=== PATIENT | female | born 1985 | race Caucasian/White ===

== ENCOUNTER 2017-12-20 13:47 | Inpatient (IN) | payer OTHER ==
[~2017-12-20] VITALS: Ht 157.5 cm; Wt 64.1 kg
[2017-12-20] MEDS ORDERED: LACTATED RINGER'S 1000ML 1,000 ML IV SCH (16:45)
[2017-12-20 16:56] VITALS: Ht 157.5 cm; Wt 64.1 kg
[2017-12-20] MEDS ORDERED: FERR1TAB23 (16:56)
[2017-12-20] MEDS ORDERED: PRENTAB26 PO (16:56)
[2017-12-20 17:11] LABS: HEMATOCRIT 32.7 % (37-47); HEMOGLOBIN 11.3 g/dL (12.0-16.0); MEAN CELL VOLUME 91.1 fL (80-100); MEAN CORPUSCULAR HEMOGLOBIN 31.5 pg (25-34); MEAN CORPUSCULAR HGB CONC 34.6 g/dl (32-36); MEAN PLATELET VOLUME 8.9 fL (7.4-10.4); PLATELET COUNT 383 K/uL (130-400); RED CELL DISTRIBUTION WIDTH SD 43.1 fL (36.4-46.3); WHITE BLOOD COUNT 12.03 K/uL (4.8-10.8)
[2017-12-20] MEDS ORDERED: OXYTOCIN INJ 10 UNITS/ML VIAL ONE (17:21)
[2017-12-20] MEDS ORDERED: OXYTOCIN 30 UNITS/500ML NSS IV ONE (18:18)
[2017-12-20] MEDS ORDERED: HYDROCORTISONE ACETATE 25 MG SUPP PR PRN (19:15)
[2017-12-20] MEDS ORDERED: ACETAMINOPHEN 325 MG TAB PO PRN (19:15)
[2017-12-20] MEDS ORDERED: BENZOCAINE 20% AER SPR 82.5 GM CAN EXT PRN (19:15)
[2017-12-20] MEDS ORDERED: SUPERCREAM 0.870 % 15GM JAR EXT PRN (19:15)
[2017-12-20] MEDS ORDERED: OXYTOCIN 30 UNITS/500ML NSS IV PRN (19:15)
[2017-12-20] MEDS ORDERED: OXYCODONE/ACETAMINOPHEN 5-325 TAB PO PRN (19:15)
[2017-12-20] MEDS ORDERED: ACETAMINOPHEN/CODEINE 300/30MG TAB PO PRN ×2 (19:15)
[2017-12-20] MEDS ORDERED: LANOLIN OINT EXT PRN (19:15)
--- NOTE | 2017-12-20 20:01 | HISTORY & PHYSICAL EXAMINATION ---
DATE OF ADMISSION: 12/20/2017 HISTORY OF PRESENT ILLNESS: The patient is a 32-year-old G4, P2, due date 12/27/2017, making her 39 weeks, presented to labor and delivery in labor. Upon arrival, the patient was about 3 cm dilated. She ambulated for an hour and her cervical exam changed to 7 cm. She was then admitted. She was having irregular contractions. heart rate was category 1. COURSE: Has been unremarkable. PAST MEDICAL HISTORY: Asthma. PAST SURGICAL HISTORY: Dental surgery. ALLERGIES: No known drug allergies. SOCIAL HISTORY: Nonsmoker, nonalcohol user, nondrug user. OBSTETRIC/GYNECOLOGIC HISTORY: The patient has had 2 vaginal deliveries in 2011 and 2013. PHYSICAL EXAMINATION: GENERAL: Well-developed, well-nourished white female in no acute distress. HEART: S1, S2, regular rhythm and rate. LUNGS: Clear to auscultation bilaterally. ABDOMEN: heart rate category 1. Gravid. EXTREMITIES: No cyanosis, clubbing, edema. PELVIC: Exam on admission, is 7 cm dilated with bulging membranes. ASSESSMENT AND PLAN: A 32-year-old G4, P2, at 39 weeks, in labor. Plan is to admit, anticipate vaginal delivery. The patient on admission had declined IV. We discussed with patient the risk of hemorrhage, the risks of deceleration or any other situation that might require emergent , and the fact that the absence of an IV access may cause a delay. The patient and spouse still did not want an IV. We, therefore, will admit the patient and hope for the best.
--- NOTE | 2017-12-20 20:41 | DELIVERY SUMMARY ---
DATE OF OPERATION: 12/20/2017 The patient delivered a live infant in left hand compound presentation. There was no nuchal cord. was delivered. Cord was clamped after 1 minute. Cord blood was obtained. Placenta spontaneously delivered after 30 minutes. Estimated blood loss was 500 mL. There was a second-degree midline laceration which was repaired in layers. There was good sphincter tone after repair. All instruments were removed from the vagina and accounted for x2. The patient and mother are doing well in recovery. I attest to the content of the Intraoperative Record and any orders documented therein. Any exception s are noted below.
[2017-12-20] MEDS ORDERED: COUGH DROP (SUGAR FREE) LOZ 24 LOZ/1 BOX LOZ ONE (22:24)
[2017-12-20] MEDS: IBUPROFEN 600 MG TAB PO PRN (22:30)
[2017-12-20] MEDS: DOCUSATE SODIUM 100 MG CAP PO SCH (22:31)
[2017-12-20 23:10] VITALS: BP 96/61; PULSE 88; TEMP 36.5; O2SAT 96
[2017-12-21 04:10] VITALS: BP 99/64; PULSE 83; TEMP 36.7; O2SAT 96
[2017-12-21 07:45] VITALS: BP 99/60; PULSE 81; TEMP 36.3; O2SAT 97
[2017-12-21] MEDS: IBUPROFEN 600 MG TAB PO PRN ×2 (07:48→21:25)
[2017-12-21] MEDS: PRENATAL VITAMIN TAB PO SCH (07:48)
--- NOTE | 2017-12-21 10:14 | OB/GYN Progress Note ---
[employer] Progress Note Date of Service Dec 21, 2017. Subjective conversation w/ patient, physical exam Ambulation: ambulating normally Voiding: no voiding problems Passing Gas: Yes Diet Tolerance: Regular Diet Lochia: Moderate Feeding Type: Breast Feeding Review of Systems Constitutional: No fever, No chills, No sweats, No weight loss, No weakness, No fatigue, No problem reported Respiratory: No cough, No sputum, No wheezing, No shortness of breath, No dyspnea on exertion, No dyspnea at rest, No hemoptysis, No problem reported Cardiac: No chest pain, No orthopnea, No PND, No edema, No claudication, No palpitations, No problem reported Breast: No see HPI, No breast lump, No change in shape, No nipple discharge, No breast pain, No problem reported Abdomen: No pain, No nausea, No vomiting, No diarrhea, No constipation, No GI bleeding, No problem reported Female : No see HPI, No dysuria, No urinary frequency, No hematuria, No incontinence, No abnormal vaginal bleeding, No vaginal discharge, No problem reported Objective Vital Signs Date Time Temp Pulse Resp B/P (MAP) Pulse Ox O2 Delivery O2 Flow Rate FiO2 12/21/17 07:45 36.3 81 18 99/60 (73) 97 Room Air 12/21/17 07:45 97 Room Air 12/21/17 04:10 36.7 83 16 99/64 (76) 96 Room Air 12/20/17 23:10 Room Air 12/20/17 23:10 36.5 88 16 96/61 (73) 96 Room Air Physical Exam General Appearance: WELL-APPEARING, WD/WN, NO APPARENT DISTRESS Respiratory/Chest: chest non-tender, lungs clear, normal breath sounds Cardiovascular: regular rate, rhythm, no edema, no gallop Abdomen: normal bowel sounds, non tender, soft Fundus: Firm Extremities: normal range of motion, non-tender, normal inspection Laboratory Results Last 24 Hours Test 12/20/17 16:59 White Blood Count 12.03 K/uL Red Blood Count 3.59 M/uL Hemoglobin 11.3 g/dL Hematocrit 32.7 % Mean Corpuscular Volume 91.1 fL Mean Corpuscular Hemoglobin 31.5 pg Mean Corpuscular Hemoglobin Concent 34.6 g/dl RDW Standard Deviation 43.1 fL RDW Coefficient of Variation 13.0 % Platelet Count 383 K/uL Mean Platelet Volume 8.9 fL Assessment and Plan Day Number: 1 Continue Routine Care: PPD #1 pt doing well d/c home tomorrow
[2017-12-21 12:30] VITALS: BP 99/62; PULSE 77; TEMP 36.9
[2017-12-21 15:45] VITALS: BP 87/49; PULSE 80; TEMP 36.4
[2017-12-21] MEDS: DOCUSATE SODIUM 100 MG CAP PO SCH ×3 (19:30→20:00)
[2017-12-21] MEDS ORDERED: BISACODYL 5 MG TABEC PO SCH (20:00)
[2017-12-22] VITALS: BP 96/60; PULSE 80; TEMP 36.6; O2SAT 98
[2017-12-22 06:29] LABS: HEMATOCRIT 30.1 % (37-47); HEMOGLOBIN 10.1 g/dL (12.0-16.0); MEAN CELL VOLUME 92.9 fL (80-100); MEAN CORPUSCULAR HEMOGLOBIN 31.2 pg (25-34); MEAN CORPUSCULAR HGB CONC 33.6 g/dl (32-36); MEAN PLATELET VOLUME 8.8 fL (7.4-10.4); PLATELET COUNT 368 K/uL (130-400); RED CELL DISTRIBUTION WIDTH CV 13.4 % (11.5-14.5); RED CELL DISTRIBUTION WIDTH SD 45.2 fL (36.4-46.3); WHITE BLOOD COUNT 11.73 K/uL (4.8-10.8)
[2017-12-22] MEDS ORDERED: BISACODYL 10 MG SUPP PR PRN (07:00)
[2017-12-22] MEDS: IBUPROFEN 600 MG TAB PO PRN (08:13)
[2017-12-22] MEDS: FERROUS SULFATE 325 MG TAB PO SCH ×2 (08:14→08:17)
[2017-12-22] MEDS: PRENATAL VITAMIN TAB PO SCH (08:14)
[2017-12-22] MEDS: DOCUSATE SODIUM 100 MG CAP PO SCH (08:14)
[2017-12-22 08:50] VITALS: PULSE 80; TEMP 36.8
[2017-12-22] MEDS ORDERED: MTR600X PO (12:01)
--- NOTE | 2017-12-22 12:03 | Discharge Instructions ---
Discharge Instructions Date of Service Dec 22, 2017. Admission Reason for Admission: Check Labor Discharge Discharge Diagnosis / Problem: term delivered Discharge Goals Goal(s): Routine recovery after delivery Activity Recommendations Activity Limitations: as noted below Lifting Limitations: no more than 10 pounds, gradually increase as tolerated Exercise/Sports Limitations: gradually increase as tolerated May Resume Sexual Activity: after follow-up appointment Shower/Bathe: no limitations Driving or Machine Use: resume 3 days after discharge . Current Hospital Diet Patient's current hospital diet: Regular OB Diet Discharge Diet Recommended Diet: Regular OB Diet Fluid Restriction: None Pending Studies Studies pending at discharge: no Medical Emergencies . Who to Call and When: Medical Emergencies: If at any time you feel your situation is an emergency, please call 911 immediately. . Non-Emergent Contact Non-Emergency issues call your: Primary Care Provider . . "Provider Documentation" section prepared by Luther Redding. .
--- NOTE | 2017-12-22 12:04 | OB/GYN Progress Note ---
[employer] Progress Note Date of Service Dec 22, 2017. Subjective conversation w/ patient, physical exam Ambulation: ambulating normally Voiding: no voiding problems Passing Gas: Yes Diet Tolerance: Regular Diet Lochia: Small Objective Vital Signs Date Time Temp Pulse Resp B/P (MAP) Pulse Ox O2 Delivery O2 Flow Rate FiO2 12/22/17 08:50 Room Air 12/22/17 08:50 36.8 80 18 Room Air 12/22/17 00:00 98 Room Air 12/22/17 00:00 36.6 80 16 96/60 (72) 98 Room Air 12/21/17 15:45 36.4 80 18 87/49 (62) Room Air 12/21/17 15:45 Room Air 12/21/17 12:30 36.9 77 18 99/62 (74) Room Air Physical Exam General Appearance: NO APPARENT DISTRESS Abdomen: non tender Fundus: Firm Extremities: normal inspection, no pedal edema, no calf tenderness Laboratory Results Last 24 Hours Test 12/22/17 06:00 White Blood Count 11.73 K/uL Red Blood Count 3.24 M/uL Hemoglobin 10.1 g/dL Hematocrit 30.1 % Mean Corpuscular Volume 92.9 fL Mean Corpuscular Hemoglobin 31.2 pg Mean Corpuscular Hemoglobin Concent 33.6 g/dl RDW Standard Deviation 45.2 fL RDW Coefficient of Variation 13.4 % Platelet Count 368 K/uL Mean Platelet Volume 8.8 fL Assessment and Plan Day Number: 2 Continue Routine Care: discharged
[2017-12-22 14:25] VITALS: BP_DIAS 60; PULSE 80; TEMP 36.8
== END 2017-12-22 14:25 | disposition home or self-care (01) | DRG 775 ==
LOC: C.OPB 13:47 → C.LD 13:47 → C.OPB 16:42 → C.LD 16:42 → C.OBG 21:48
PROVIDERS: ADMIT Obstetrics & Gynecology; ATTEND Obstetrics & Gynecology
PROC: 0KQM0ZZ Repair Perineum Muscle, Open Approach (ICD-10-PCS; principal; 2017-12-20)
PROC: 10E0XZZ Delivery of Products of Conception, External Approach (ICD-10-PCS; principal; 2017-12-20)
DX: O70.1 Second degree perineal laceration during delivery (principal); Z3A.39 39 weeks gestation of pregnancy; Z37.0 Single live birth

== ENCOUNTER 2019-10-12 09:19 | Inpatient (IN) ==
[2019-10-12] MEDS ORDERED: SODIUM CHLORIDE 0.9% 500 ML IV ONE (09:42)
[2019-10-12] MEDS ORDERED: SODIUM CHLORIDE 0.9% 1000ML 1,000 ML IV ONE ×2 (09:42→17:58)
[2019-10-12] MEDS ORDERED: ACETAMINOPHEN 500 MG TAB PO STA (09:43)
[2019-10-12 10:00] LABS: Basophils # (auto) 0.01 K/uL (0-0.2); Basophils % (auto) 0.2 %; Eosinophils # (auto) 0.01 K/uL (0-0.5); Eosinophils % (auto) 0.2 %; Hemoglobin 11.9 g/dL (12.0-16.0); Immature Granulocytes # (auto) 0.01 K/uL (0.00-0.02); Immature Granulocytes % (auto) 0.2 %; Lymphocytes # (auto) 0.69 K/uL (1.2-3.4); Mean Corpuscular Hemoglobin 30.5 pg (25-34); Mean Corpuscular Hgb Conc 33.1 g/dL (32-36); Mean Corpuscular Volume 92.3 fL (80-100); Mean Platelet Volume 9.2 fL (7.4-10.4); Monocytes # (auto) 0.07 K/uL (0.11-0.59); Monocytes % (auto) 1.7 %; Neutrophils # (auto) 3.26 K/uL (1.4-6.5); Neutrophils % (auto) 80.7 %; Platelet Count 295 K/uL (130-400); RDW Coefficient of Variation 12.9 % (11.5-14.5); RDW Standard Deviation 43.2 fL (36.4-46.3); White Blood Count 4.05 K/uL (4.8-10.8)
--- NOTE | 2019-10-12 10:15 | XRay Report ---
XR chest 1V portable HISTORY: 34 years-old Female SEPSIS acute sepsis COMPARISON: None available TECHNIQUE: Portable AP view of the chest FINDINGS: Nipple shadow projects of the left lung base. Cardiomediastinal and hilar silhouettes are within norm al limits. There is no pneumothorax, pleural effusion, focal airspace consolidation or overt pulmonar y edema. Bones of the chest appear grossly intact. There is no opaque foreign body. IMPRESSION: No acute process. ACT 112: Negative or not required by law. The above report was generated using voice recognition software. It may contain grammatical, syntax o r spelling errors. Electronically signed by: Jim Deleon M.D. 10/12/2019 10:13 AM
[2019-10-12 10:16] LABS: Appearance Urine Clear (Clear); Bacteria Urine Automated Negative (Negative); Bilirubin Urine Negative (Negative); Blood Urine 1+ (Negative); Cast Urine Automated 0 /lpf (0-5); Color Urine Yellow; Epithelial Cell Urine Auto >30 /lpf (0-5); Glucose Urine UA Negative (Negative); Ketones Urine Negative (Negative); Leukocyte Esterase Urine Negative (Negative); Nitrite Urine Negative (Negative); Protein Urine Negative (Negative); Specific Gravity Urine 1.014 (1.000-1.030); Urobilinogen Urine Negative (Negative)
[2019-10-12 10:16] LABS: Partial Thromboplastin Ratio 0.8; Prothrombin Time 10.7 Seconds (9.0-12.0)
[2019-10-12 10:17] LABS: Albumin Level 4.1 gm/dl (3.4-5.0); BUN Creatinine Ratio 13.3 (10-20); Calcium 8.5 mg/dl (8.5-10.1); Creatinine Clr Calc Pharmacy 85.2 ml/min; Est GFR (African American) 122.2; Est GFR (Non-African American) 105.5; Magnesium 1.6 mg/dl (1.8-2.4); Potassium 3.3 mmol/L (3.5-5.1)
[2019-10-12 10:20] LABS: Albumin Globulin Ratio 1.3 (0.9-2); Bilirubin,Total 0.6 mg/dl (0.2-1); Globulin 3.1 gm/dl (2.5-4.0); Total Protein 7.2 gm/dl (6.4-8.2)
[2019-10-12 10:44] LABS: Influenza A virus by PCR Neg for Influ A (Neg); Influenza B virus by PCR Neg for Influ B (Neg)
[2019-10-12] MEDS ORDERED: cefTRIAXone SODIUM 1,000 MG/50 ML BAG IV STA (11:32)
[2019-10-12] MEDS ORDERED: POTASSIUM CHLORIDE 20 MEQ TABCR PO STA (12:08)
--- NOTE | 2019-10-12 12:18 | History & Physical Report ---
Date of Service October 12, 2019 Assessment & Plan (1) Fever: -Admit to [facility] with telemetry -Patient presenting from home with reports of low back pain, right hip pain, fever and rigors -Work-up in the ED unrevealing for an obvious infectious source; children were recently sick with GI illness, suspect patient has underlying viral illness -Influenza negative, CXR clear, UA does not suggest infection -No signs of infection involving right hip and lumbar spine on CT scan -Initial lactate mildly elevated 2.1, normalized after IVF to 1.4 -Febrile on presentation at 39.4, improved after Tylenol -Continue supportive care with IVF, PRN Tylenol -Follow blood cultures (2) Thickened endometrium: (3) Dermoid cyst of right ovary: -CT ABD/pelvis showing a 6.6 x 6.1 cm mass within the right ovary demonstrating fat, calcification, and fluid consistent with an ovarian dermoid and heterogeneous and thickened appearance to the endometrium which extends into the wall of the uterine fundus which could represent an endometrial mass or focal adenomyoma. -Likely incidental finding and unrelated to above issues -Pelvic ultrasound ordered -PHLEBOTOMY SUPERVISOR consult (4) DVT prophylaxis: -SCDs, ambulate History of Present Illness Chief Complaint: Fever, Rigors Primary Care Provider: Dr. Caro 34 year old female who presents to the ED for evaluation of fever and rigors. Patient reports that over the past year she has been having intermittent right hip pain. Recently, pain has become more consistent. Patient has been trying stretches and taking ibuprofen twice daily at home. Yesterday, patient reports she developed low back pain which was new for her. Pain did not resolve with the ibuprofen. This morning patient reports she woke up with "a weird feeling" in her legs. She then some how ended up on he floor and said she was shaking, felt nauseous, and had a fever. EMS was called and patient was brought to the ED for further evaluation. Patient reports her children were sick with a GI illness recently. She had some nausea but denies any vomiting or diarrhea. No abdominal pain. She denies chest pain, shortness of breath. No lightheadedness, dizziness, diaphoresis, and syncopal events. She denies urinary symptoms. In the ED, patient was febrile at 39.4, tachycardic HR 130s. Mild leukopenia WBC 4.05K. K+ 3.3, Mg+ 1.6. Flu negative, CXR clear, U/A does not suggest infection. Patient was given Tylenol, IV Rocephin, IV Mg+, IVF. 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 Beard's addendum for physical exam Results & Data Vital Signs (Past 12 Hours) Vital Signs Temp Pulse Pulse Resp BP BP Pulse Ox 10/12/19 10:28 39.4 C H 132 H 18 104/56 L 98 10/12/19 09:31 38.4 C H 132 H 18 105/58 L 98 Laboratory Results Short CBC 10/12/19 Range/Units 08:54 WBC 4.05 L (4.8-10.8) K/uL Hgb 11.9 L (12.0-16.0) g/dL Hct 36.0 L (37-47) % Plt Count 295 (130-400) K/uL BMP 10/12/19 08:54 Sodium 139 Potassium 3.3 L Chloride 108 H Carbon Dioxide 22 BUN 10 Creatinine 0.75 Glucose 94 Calcium 8.5 Liver Function 10/12/19 Range/Units 08:54 Total Bilirubin 0.6 (0.2-1) mg/dl AST 9 L (15-37) U/L ALT 16 (12-78) U/L Alkaline Phosphatase 55 (45-117) U/L Albumin 4.1 (3.4-5.0) gm/dl Urine 10/12/19 Range/Units 09:55 Urine Color Yellow Urine Appearance Clear (Clear) Urine pH 6.0 (4.5-7.5) Ur Specific Outlook 1.014 (1.000-1.030) Urine Protein Negative (Negative) Urine Glucose (UA) Negative (Negative) Diagnostic Findings CXR IMPRESSION: No acute process. CT ABD/PELVIS IMPRESSION: 1. There is a 6.6 x 6.1 cm mass within the right ovary demonstrating fat, calcification, and fluid. This is consistent with an ovarian dermoid. 2. Heterogeneous and thickened appearance to the endometrium which extends into the wall of the uterine fundus. This could represent an endometrial mass or focal adenomyoma. Follow-up pelvic ultrasound is recommended as well as gynecologic consultation. 3. No bowel wall thickening or obstruction. 4. Normal appendix. 5. Mild interstitial thickening at the lung bases. This is nonspecific and could represent mild congestive change given the periportal edema. 6. There are 2 subpleural 4 mm nodules within the lung bases. These are considered low suspicion given the patient's age. RIGHT HIP CT IMPRESSION: 1. Unremarkable CT of the right hip. 2. Right ovarian dermoid, depicted on the CT of the abdomen and pelvis. Please see that report for further description. LUMBAR SPINE CT IMPRESSION: No fractures within the lumbar spine. Code Status & VTE Plan VTE Prophylaxis Plan VTE Prophylaxis will be ordered: Yes Supervising Physician Co-Signing Physician Notes 34 year old female who presents to the ED for evaluation of fever, rigors this morning and worsening right-sided hip pain. History and physical exam performed by me. Detailed history as documented by Berna LANGLEY. History notable for intermittent right hip pain for the past year, low back pain since yesterday that did not improve with ibuprofen, nausea, fevers and rigors. Positive sick contacts with kids with GI illness recently. No recent travels On physical exam, General: Well nourished, well hydrated, average body habitus, no acute distress and not ill appearing Eyes: PERRL, conjunctivae normal, not pale, anicteric sclerae, EOM intact bilaterally ENMT: External ear and nose normal, oropharynx normal Neck: Normal visual inspection, no tracheal deviation, no swelling noted Respiratory: Normal respiratory effort, no respiratory distress, lungs clear to auscultation, no crackles and no wheezes Cardiovascular: Pulse is RRR. S1 S2; no murmurs. Vessels: normal peripheral pulses Extremities: no pedal edema Chest (Breasts): Chest: normal inspection of chest Gastrointestinal (Abdomen): Abdomen is not distended, soft, non-tender to palpation, no guarding, no palpable hepatosplenomegaly, normal bowel sounds Musculoskeletal: No cyanosis or clubbing, No back tenderness, all extremities motor strength 5/5 Genitourinary: No CVA tenderness Skin: No rash noted on gross inspection, No ulcers noted Neurologic: Alert and oriented x 3, No focal weakness, sensation grossly intact Psychiatric: Euthymic affect, normal judgement Lymphatic: No cervical and inguinal lymphadenopathy CT ABD/pelvis showing a 6.6 x 6.1 cm mass within the right ovary demonstrating fat, calcification, and fluid consistent with an ovarian dermoid and heterogeneous and thickened appearance to the endometrium which extends into the wall of the uterine fundus which could represent an endometrial mass or focal adenomyoma CT Hip and lumbar unremarkable WBC 4.05 K 3.3 Mag 1.6 Neg flu A/B UA is negative for WBC, esterase, nitrite Procal 0.06 Tachycardia, Fevers Sepsis, unclear source Got vancomycin and ceftriaxone in ER Got potassium and mag repletion. Patient was admitted to [facility]. At about 6:10pm, RN called that patient was getting hypotensive On reevaluation patient is complaining of headache now that started today Physical exam repeated was negative for any nuchal rigidity, tenderness or any meningeal signs. Will get CT head stat Discussed with Radiologist coater carbon paper who will get lumbar puncture after CT head. Has already got 1.5L IVF since admission. Will give another bolus of IVF Transfer to PCU for closer monitoring Has already got vancomycin, will give meningitic dose of rocephine, acyclovir and steroid Monitor neurological status
[2019-10-12] MEDS ORDERED: VANCOMYCIN HCL 1,250 MG in SODIUM CHLORIDE 0.9% 250 ML IV ONE (12:30)
[2019-10-12] MEDS: MAGNESIUM SULFATE / D5W 1 GM/100 ML BAG IV SCH ×2 (12:39→14:06)
[2019-10-12] MEDS ORDERED: IOVERSOL 100ml IV PRN (13:01)
--- NOTE | 2019-10-12 13:26 | CT Scan Report ---
ABDOMEN AND PELVIS CT WITH IV CONTRAST CT DOSE: 321.34 mGy.cm HISTORY: fever, hip and back pain TECHNIQUE: Multiaxial CT images of the abdomen and pelvis were performed following the use of intrave nous contrast. A dose lowering technique was utilized adhering to the principles of ALARA. COMPARISON STUDY: None. FINDINGS: Mild interstitial thickening at the lung bases. There is a 4 mm subpleural nodule within th e left lower lobe on image 41 and a 4 mm subpleural nodule within the right lower lobe on image 11. N o pneumoperitoneum. No pneumatosis. No suspicious lytic or blastic osseous lesions. Periportal edema. This could be due to overhydration. There are no hepatic or splenic masses. The adrenal glands, panc reas, gallbladder, and kidneys are unremarkable. No hydronephrosis. No retroperitoneal lymphadenopath y. The bladder is unremarkable. Heterogeneous and thickened appearance to the endometrium which exten ds into the wall of the uterine fundus. This could represent an endometrial mass or focal adenomyoma. Corpus luteum within the normal left ovary. There is a 6.6 x 6.1 cm mass within the right ovary demo nstrating fat, calcification, and fluid. This is consistent with an ovarian dermoid. There is an bonny tional 2.3 cm right ovarian cyst on image 308. The appendix is partially visualized and appears unrem arkable. No bowel wall thickening or obstruction. Moderate stool within the colon. IMPRESSION: 1. There is a 6.6 x 6.1 cm mass within the right ovary demonstrating fat, calcification, and fluid. T his is consistent with an ovarian dermoid. 2. Heterogeneous and thickened appearance to the endometrium which extends into the wall of the uteri ne fundus. This could represent an endometrial mass or focal adenomyoma. Follow-up pelvic ultrasound is recommended as well as gynecologic consultation. 3. No bowel wall thickening or obstruction. 4. Normal appendix. 5. Mild interstitial thickening at the lung bases. This is nonspecific and could represent mild conge stive change given the periportal edema. 6. There are 2 subpleural 4 mm nodules within the lung bases. These are considered low suspicion give n the patient's age. ACT 112: Negative or not required by law. Electronically signed by: David Walter M.D. 10/12/2019 1:25 PM
--- NOTE | 2019-10-12 13:29 | CT Scan Report ---
LUMBAR SPINE CT with contrast CT DOSE: HISTORY: low back pain, fever TECHNIQUE: Multiaxial CT images of the lumbar spine were performed and reformatted in the sagittal an d coronal plane following the use of intravenous contrast. A dose lowering technique was utilized ad sherman to the principles of ALARA. COMPARISON: None. FINDINGS: No fractures. No subluxation. Paraspinal soft tissues are unremarkable. No significant cent ral canal or neural foraminal narrowing. Paraspinal soft tissues are unremarkable. IMPRESSION: No fractures within the lumbar spine. ACT 112: Negative or not required by law. Electronically signed by: David Walter M.D. 10/12/2019 1:27 PM
--- NOTE | 2019-10-12 13:37 | CT Scan Report ---
CT hip RT w con CLINICAL HISTORY: right hip pain, fever COMPARISON STUDY: No previous studies for comparison. TECHNIQUE: Axial images of the right hip were obtained following intravenous injection of 94 cc Optir ay 320 IV. Sagittal and coronal reconstructions were viewed. Automated exposure control was utilized for the study. A dose lowering technique was utilized adhering to the principles of ALARA. FINDINGS: Please note that the CT of the abdomen and pelvis will be reported separately. A right ovar viktor dermoid is better depicted on that exam. No acute fracture or osseous lesion within the right hip is noted. Right hip joint space is preserved. There is no CT evidence for a joint effusion. There is no evidence for avascular necrosis. There is no right inguinal lymphadenopathy. No mass or fluid col lection adjacent to the right hip is noted. IMPRESSION: 1. Unremarkable CT of the right hip. 2. Right ovarian dermoid, depicted on the CT of the abdomen and pelvis. Please see that report for fu rther description. ACT 112: Negative or not required by law. Electronically signed by: Jake Servin M.D. 10/12/2019 1:36 PM
--- NOTE | 2019-10-12 16:29 | Emergency Department Note ---
Entered by Maria C Zamarripa acting as a scribe for Ashvin Sotelo History of Present Illness General Chief complaint: Illness Stated complaint: nausea/weakness Time Seen by Provider: 10/12/19 09:38 Source: patient History of Present Illness Onset (ago): hour(s) (1.5) Location: abdomen Pain Consistency: + other (sudden) Quality: + other (illness) Associated symptoms: + denies other symptoms (diarrhea, hematochezia, melena, dysuria, hematuria, abdominal pain), + fever/chills and + nausea/vomiting (nausea); no cough The patient is a 34 year old female who presents to the Emergency Room with complaints of sudden illness starting 1.5 hours ago. The patient states that this morning she felt fine, but suddenly had a mortensen into her legs. She states that 15 minutes later she started having nausea, fever, and uncontrollable shaking. She states that she ended up lying on the floor thinking it was similar to one of her kids stomach bugs that they had last week, but the shaking didnt stop for 30 minutes. She reports that she thinks that she may be dehydrated as she has been overworking herself and not drinking much the past few days. The patient complains of a headache. The patient denies diarrhea, hematochezia, melena, chance of , dysuria, hematuria, cough, and abdominal pain. Home Medications Home Medications Medication Instructions Recorded Confirmed Type ibuprofen 400 mg PO Q6H PRN 10/12/19 10/12/19 History omega 9-ubf-[id number]-fish oil [Fish Oil] 3 cap PO DAILY 10/12/19 10/12/19 History Allergies Allergy/AdvReac Type Severity Reaction Status Date / Time lactose Allergy Intermediate GI SYMPTOMS Verified 10/12/19 10:59 Past Med/Surg History Medical History No significant medical problems Surgical History H/O wisdom tooth extraction Family History Father Hypertension Social History Preferred Language: Yi Communication Ability: Effective Orthotic/Prosthetic Clinician Required: No Beliefs That Will Affect Care: None marital status: Current Living Situation: Spouse Other Information That Helps Us Care for You: No Feels Safe at Home: Yes Safety Concerns: Feels Safe At This Time Smoking Status: Never smoker Hx Alcohol Use: Yes Alcohol type: wine Alcohol Intake Frequency: Rarely Hx Substance Use: No Review of Systems See HPI for pertinent positives & negatives. and A total of 10 systems reviewed and were otherwise negative Physical Exam Vital Signs Vital Signs - 24 hr 10/12/19 09:31 10/12/19 10:28 Temperature 38.4 C H 39.4 C H Temperature Source Oral Oral Pulse Rate 132 H Pulse Rate [Left] 132 H Pulse Rhythm Regular Pulse Rhythm [Left] Regular Pulse Strength Normal Pulse Strength [Left] Normal Respiratory Rate 18 18 Respiratory Effort / Characteristics Non-Labored Spontaneous Non-Labored Spontaneous Respiratory Depth Normal Normal Respiratory Pattern Regular Regular Blood Pressure 105/58 L Blood Pressure [Left Arm] 104/56 L Blood Pressure Mean 73 Blood Pressure Mean [Left Arm] 72 Blood Pressure Position Lying Blood Pressure Position [Left Arm] Lying Pulse Oximetry 98 98 Oxygen Delivery Method Room Air Room Air Sepsis Recent Fever Within 48 Hours Yes Sepsis New/Unexplained Change in Mental Status No Sepsis Action Taken by Nursing No Action Required GENERAL: She is oriented to person, place, and time. She appears well-developed and well-nourished. She does not appear distressed. HENT: Exam performed. Head: Normocephalic and atraumatic. Right Ear: External ear normal. No mastoid tenderness. Left Ear: External ear normal. No mastoid tenderness. Mouth/Throat: The oropharynx is clear and moist. No trismus in the jaw. No dental abscesses or uvula swelling. No oropharyngeal exudate or tonsillar abscesses. EYES: Conjunctivae and EOM are normal. Pupils are equal, round, and reactive to light. Right eye exhibits no discharge. Left eye exhibits no discharge. No scleral icterus. NECK: Normal range of motion. Neck supple. No JVD present. No spinous process tenderness present. No carotid bruit present. No rigidity. No tracheal deviation and normal range of motion present. No Brudzinski's sign and no Kernig's sign noted. CV: Tachycardic rate, regular rhythm, normal heart sounds and intact distal pulses. There is no peripheral edema. Palpable radial pulses bue. PULM/CHEST: Effort normal and breath sounds normal. No respiratory distress. No stridor. She has no wheezes. She has no rales. Chest Wall: She exhibits no tenderness. ABD: The abdomen is soft. Bowel sounds are normal. She has no distension. No mass is present. There is no tenderness. There is no rebound, no guarding, no Wang's sign and no tenderness at McBurney's point. Rovsig negative MUSC/SKEL: Normal range of motion. There is no peripheral edema, tenderness or deformity. LYMPH: No cervical adenopathy. NEURO: She is alert and oriented to person, place, and time. She has normal strength. No cranial nerve deficit or sensory deficit. Coordination and gait normal. GCS eye subscore is 4. GCS verbal subscore is 5. GCS motor subscore is 6. cerbellar tests wnl. SKIN: Skin is warm and dry. She is not diaphoretic. PSYCH: She has a normal mood and affect. Her behavior is normal. Judgment and thought content normal. Course Course 0939: The patient was evaluated in room B2. A complete history and physical exam was performed. Patient was found to be tachycardic and febrile on exam. Sepsis order set was initiated. 1149: On re-exam, the patient is still tachycardic and febrile.Repeat physical exam shows no pain on palpation of the abdomen. The lungs are clear to auscul tation. She has full ROM of all 4 extremities. No meningeal signs are present. Given the patient's persistent fever, tachycardia, and elevated lactic acid level, she will be admitted to the hospitalist service. There is no clear source for the patient's infection so she will be given 1 gram of Rocephin empirically. Administered Medications Discontinued Medications Acetaminophen (Tylenol) 1,000 mg PO NOW STA Stop: 10/12/19 09:44 Last Admin: 10/12/19 10:06 Dose: 1,000 mg Documented by: [id number] Sodium Chloride (Nss) 500 mls @ 999 mls/hr IV .Q31M ONE Stop: 10/12/19 10:12 Last Infusion: 10/12/19 11:08 Dose: 0 mls/hr Documented by: [id number] Admin: 10/12/19 11:08 Dose: 999 mls/hr Documented by: [id number] Sodium Chloride (Nss 1000ml) 1,000 mls @ 999 mls/hr IV .Q1H1M ONE Stop: 10/12/19 10:42 Last Infusion: 10/12/19 11:08 Dose: 0 mls/hr Documented by: [id number] Admin: 10/12/19 09:57 Dose: 999 mls/hr Documented by: [id number] Magnesium Sulfate/Dextrose (Magnesium Sulfate / D5w) 1 gm in 100 mls @ 100 mls/hr IV Q1H NADINE Stop: 10/12/19 13:44 Last Infusion: 10/12/19 15:33 Dose: 0 mls/hr Documented by: [id number] Admin: 10/12/19 14:06 Dose: 100 mls/hr Documented by: [id number] Infusion: 10/12/19 14:03 Dose: 0 mls/hr Documented by: [id number] Admin: 10/12/19 12:39 Dose: 100 mls/hr Documented by: [id number] Ceftriaxone Sodium (Rocephin) 1,000 mg in 50 mls @ 100 mls/hr IV NOW STA Stop: 10/12/19 12:01 Last Infusion: 10/12/19 14:03 Dose: 0 mls/hr Documented by: [id number] Admin: 10/12/19 12:39 Dose: 100 mls/hr Documented by: [id number] Vancomycin HCl 1,250 mg/ (Sodium Chloride) 275 mls @ 125 mls/hr IV NOW ONE Stop: 10/12/19 14:41 Last Infusion: 10/12/19 16:21 Dose: 0 mls/hr Documented by: [id number] Admin: 10/12/19 14:04 Dose: 125 mls/hr Documented by: [id number] Ioversol (Optiray 320 100ml) 94 ml IV ONCE PRN PRN Reason: Interaction Checking Stop: 10/16/19 13:00 Last Admin: 10/12/19 13:05 Dose: 94 ml Documented by: [id number] Potassium Chloride (Klor-Con M20) 40 meq PO NOW STA Stop: 10/12/19 12:09 Last Admin: 10/12/19 12:39 Dose: 40 meq Documented by: [id number] Critical Care Time Critical Care Time: Yes Total Critical Care Time: 49 I have personally spent 49 minutes of critical care time in the direct management of this patient. This includes bedside care, interpretation of diagnostic studies, and testing, discussion with consultants, patient, and family members, and other required patient management activities. This 49 m inutes is in excess of all separately billable procedures. Medical Decision Making Medical Records Attestation: I reviewed the patient's medical records. Home Medications Current Medication List: was personally reviewed by me Laboratory Data Attestation: I reviewed the patient's lab results. Result diagrams: 10/12/19 08:54 10/12/19 08:54 Lab Results 10/12/19 10/12/19 10/12/19 Range/Units 08:54 08:54 08:54 WBC 4.05 L (4.8-10.8) K/uL RBC 3.90 L (4.2-5.4) M/uL Hgb 11.9 L (12.0-16.0) g/dL Hct 36.0 L (37-47) % MCV 92.3 (80-100) fL MCH 30.5 (25-34) pg MCHC 33.1 (32-36) g/dL RDW Std Deviation 43.2 (36.4-46.3) fL RDW Coeff of [place] 12.9 (11.5-14.5) % Plt Count 295 (130-400) K/uL MPV 9.2 (7.4-10.4) fL Immature Gran % (Auto) 0.2 % Neut % (Auto) 80.7 % Lymph % (Auto) 17.0 % [place] % (Auto) 1.7 % Eos % (Auto) 0.2 % Baso % (Auto) 0.2 % Immature Gran # (Auto) 0.01 (0.00-0.02) K/uL Neut # (Auto) 3.26 (1.4-6.5) K/uL Lymph # (Auto) 0.69 L (1.2-3.4) K/uL [place] # (Auto) 0.07 L (0.11-0.59) K/uL Eos # (Auto) 0.01 (0-0.5) K/uL Baso # (Auto) 0.01 (0-0.2) K/uL PT 10.7 (9.0-12.0) Seconds INR 1.0 (0.9-1.1) APTT 21.0 (21.0-31.0) Seconds PTT Ratio 0.8 Sodium (136-145) mmol/L Potassium (3.5-5.1) mmol/L Chloride (98-107) mmol/L Carbon Dioxide (21-32) mmol/L Anion Gap (3-11) BUN (7-18) mg/dl Creatinine (0.6-1.2) mg/dl Est Cr Clr Drug Dosing ml/min Est GFR ( Amer) Est GFR (Non-Af Amer) BUN/Creatinine Ratio (10-20) Glucose (70-99) mg/dl Lactate (0.4-2.0) mmol/L Calcium (8.5-10.1) mg/dl Magnesium (1.8-2.4) mg/dl Total Bilirubin (0.2-1) mg/dl AST (15-37) U/L ALT (12-78) U/L Alkaline Phosphatase (45-117) U/L Total Protein (6.4-8.2) gm/dl Albumin (3.4-5.0) gm/dl Globulin (2.5-4.0) gm/dl Albumin/Globulin Ratio (0.9-2) Procalcitonin 0.06 (0-0.5) ng/ml Urine Color Urine Appearance (Clear) Urine pH (4.5-7.5) Ur Specific [place] (1.000-1.030) Urine Protein (Negative) Urine Glucose (UA) (Negative) Urine Ketones (Negative) Urine Blood (Negative) Urine Nitrite (Negative) Urine Bilirubin (Negative) Urine Urobilinogen (Negative) Ur Leukocyte Esterase (Negative) Urine WBC (Auto) (0-5) /hpf Urine RBC (Auto) (0-4) /hpf U Hyaline Cast (Auto) (0-5) /lpf U Epithel Cells (Auto) (0-5) /lpf Urine Bacteria (Auto) (Negative) Influenza Type A (PCR) (Neg) Influenza Type B (PCR) (Neg) 10/12/19 10/12/19 10/12/19 Range/Units 08:54 09:55 09:55 WBC (4.8-10.8) K/uL RBC (4.2-5.4) M/uL Hgb (12.0-16.0) g/dL Hct (37-47) % MCV (80-100) fL MCH (25-34) pg MCHC (32-36) g/dL RDW Std Deviation (36.4-46.3) fL RDW Coeff of [place] (11.5-14.5) % Plt Count (130-400) K/uL MPV (7.4-10.4) fL Immature Gran % (Auto) % Neut % (Auto) % Lymph % (Auto) % [place] % (Auto) % Eos % (Auto) % Baso % (Auto) % Immature Gran # (Auto) (0.00-0.02) K/uL Neut # (Auto) (1.4-6.5) K/uL Lymph # (Auto) (1.2-3.4) K/uL [place] # (Auto) (0.11-0.59) K/uL Eos # (Auto) (0-0.5) K/uL Baso # (Auto) (0-0.2) K/uL PT (9.0-12.0) Seconds INR (0.9-1.1) APTT (21.0-31.0) Seconds PTT Ratio Sodium 139 (136-145) mmol/L Potassium 3.3 L (3.5-5.1) mmol/L Chloride 108 H (98-107) mmol/L Carbon Dioxide 22 (21-32) mmol/L Anion Gap 9.0 (3-11) BUN 10 (7-18) mg/dl Creatinine 0.75 (0.6-1.2) mg/dl Est Cr Clr Drug Dosing 85.2 ml/min Est GFR ( Amer) 122.2 Est GFR (Non-Af Amer) 105.5 BUN/Creatinine Ratio 13.3 (10-20) Glucose 94 (70-99) mg/dl Lactate (0.4-2.0) mmol/L Calcium 8.5 (8.5-10.1) mg/dl Magnesium 1.6 L (1.8-2.4) mg/dl Total Bilirubin 0.6 (0.2-1) mg/dl AST 9 L (15-37) U/L ALT 16 (12-78) U/L Alkaline Phosphatase 55 (45-117) U/L Total Protein 7.2 (6.4-8.2) gm/dl Albumin 4.1 (3.4-5.0) gm/dl Globulin 3.1 (2.5-4.0) gm/dl Albumin/Globulin Ratio 1.3 (0.9-2) Procalcitonin (0-0.5) ng/ml Urine Color Yellow Urine Appearance Clear (Clear) Urine pH 6.0 (4.5-7.5) Ur Specific [place] 1.014 (1.000-1.030) Urine Protein Negative (Negative) Urine Glucose (UA) Negative (Negative) Urine Ketones Negative (Negative) Urine Blood 1+ H (Negative) Urine Nitrite Negative (Negative) Urine Bilirubin Negative (Negative) Urine Urobilinogen Negative (Negative) Ur Leukocyte Esterase Negative (Negative) Urine WBC (Auto) 1-5 (0-5) /hpf Urine RBC (Auto) 5-10 H (0-4) /hpf U Hyaline Cast (Auto) 0 (0-5) /lpf U Epithel Cells (Auto) >30 H (0-5) /lpf Urine Bacteria (Auto) Negative (Negative) Influenza Type A (PCR) Neg for Influ A (Neg) Influenza Type B (PCR) Neg for Influ B (Neg) 10/12/19 10/12/19 Range/Units 10:25 11:38 WBC (4.8-10.8) K/uL RBC (4.2-5.4) M/uL Hgb (12.0-16.0) g/dL Hct (37-47) % MCV (80-100) fL MCH (25-34) pg MCHC (32-36) g/dL RDW Std Deviation (36.4-46.3) fL RDW Coeff of [place] (11.5-14.5) % Plt Count (130-400) K/uL MPV (7.4-10.4) fL Immature Gran % (Auto) % Neut % (Auto) % Lymph % (Auto) % [place] % (Auto) % Eos % (Auto) % Baso % (Auto) % Immature Gran # (Auto) (0.00-0.02) K/uL Neut # (Auto) (1.4-6.5) K/uL Lymph # (Auto) (1.2-3.4) K/uL [place] # (Auto) (0.11-0.59) K/uL Eos # (Auto) (0-0.5) K/uL Baso # (Auto) (0-0.2) K/uL PT (9.0-12.0) Seconds INR (0.9-1.1) APTT (21.0-31.0) Seconds PTT Ratio Sodium (136-145) mmol/L Potassium (3.5-5.1) mmol/L Chloride (98-107) mmol/L Carbon Dioxide (21-32) mmol/L Anion Gap (3-11) BUN (7-18) mg/dl Creatinine (0.6-1.2) mg/dl Est Cr Clr Drug Dosing ml/min Est GFR ( Amer) Est GFR (Non-Af Amer) BUN/Creatinine Ratio (10-20) Glucose (70-99) mg/dl Lactate 2.1 H* 1.4 (0.4-2.0) mmol/L Calcium (8.5-10.1) mg/dl Magnesium (1.8-2.4) mg/dl Total Bilirubin (0.2-1) mg/dl AST (15-37) U/L ALT (12-78) U/L Alkaline Phosphatase (45-117) U/L Total Protein (6.4-8.2) gm/dl Albumin (3.4-5.0) gm/dl Globulin (2.5-4.0) gm/dl Albumin/Globulin Ratio (0.9-2) Procalcitonin (0-0.5) ng/ml Urine Color Urine Appearance (Clear) Urine pH (4.5-7.5) Ur Specific [place] (1.000-1.030) Urine Protein (Negative) Urine Glucose (UA) (Negative) Urine Ketones (Negative) Urine Blood (Negative) Urine Nitrite (Negative) Urine Bilirubin (Negative) Urine Urobilinogen (Negative) Ur Leukocyte Esterase (Negative) Urine WBC (Auto) (0-5) /hpf Urine RBC (Auto) (0-4) /hpf U Hyaline Cast (Auto) (0-5) /lpf U Epithel Cells (Auto) (0-5) /lpf Urine Bacteria (Auto) (Negative) Influenza Type A (PCR) (Neg) Influenza Type B (PCR) (Neg) Imaging Data Radiologist's Impression: Radiology results as stated below per my review and the radiologist's interpretation: XR chest 1V portable HISTORY: 34 years-old Female SEPSIS acute sepsis COMPARISON: None available TECHNIQUE: Portable AP view of the chest FINDINGS: Nipple shadow projects of the left lung base. Cardiomediastinal and hilar s ilhouettes are within normal limits. There is no pneumothorax, pleural effusion, focal airspace consolidation or overt pulmonary edema. Bones of the chest appear grossly intact. There is no opaque foreign body. IMPRESSION: No acute process. ACT 112: Negative or not required by law. The above report was generated using voice recognition software. It may contain grammatical, syntax or spelling errors. Electronically signed by: Jim Deleon M.D. 10/12/2019 10:13 AM ECG Data Attestation: I personally reviewed and interpreted this ECG as follows: Indication: + nausea Rate (beats per minute): 120 Rhythm: + normal sinus and + sinus rhythm ECG Intervals/blocks: + Normal QRS, + Normal MT and + Normal QT-c ECG ST segments: no ST depression and no ST elevation Blood Pressure Blood Pressure Findings: Normal blood pressure Blood Pressure Disposition: did not require urgent referral MDM Narrative On re-exam, the patient is still tachycardic and febrile.Repeat physical exam shows no pain on palpation of the abdomen. The lungs are clear to auscultation. She has full ROM of all 4 extremities. No meningeal signs are present. Given the patient's persistent fever, tachycardia, and elevated lactic acid level, she will be admitted to the hospitalist service. There is no clear source for the patient's infection so she will be given 1 gram of Rocephin empirically. Impression & Plan Sepsis Discharge Plan Visit Data *Final* Discharge Date/Time: 10/12/19 14:16 Chief Complaint: Illness Stated Complaint: nausea/weakness ED Provider: Ashvin Sotelo Discharge Problem: Sepsis Patient Disposition: Admitted As Inpatient Discharge Instructions Interventions: ED Discharge Assessment Last Done: 10/12/19 14:16 Discharge Problem: Sepsis Qualifiers: Sepsis type: sepsis due to unspecified organism Sepsis acute organ dysfunction status: unspecified Qualified Code(s): A41.9 - Sepsis, unspecified organism The scribe's documentation has been prepared under my direction and personally reviewed by me in its entirety. I confirm that the note above accurately reflects all work, treatment, procedures, and medical decision making performed by me.
[2019-10-12] MEDS ORDERED: SODIUM CHLORIDE 0.9% 1000ML 500 ML IV ONE (16:36)
[2019-10-12] MEDS: SODIUM CHLORIDE 0.9% 1000ML 1,000 ML IV SCH (16:39)
[2019-10-12] MEDS: ACETAMINOPHEN 325 MG TAB PO PRN ×2 (16:39→22:01)
[2019-10-12] MEDS ORDERED: VANCOMYCIN CONSULT ACTIVE PRN (18:29)
[2019-10-12] MEDS ORDERED: DEXTROSE 5% IV SCH (19:00)
[2019-10-12] MEDS ORDERED: ACYCLOVIR SOD IV SCH (19:00)
[2019-10-12] MEDS ORDERED: DEXAMETHASONE SOD PHOSPHATE 10 MG in SYRINGE 0 ML IV SCH (19:00)
--- NOTE | 2019-10-12 19:06 | CT Scan Report ---
CT head/brain wo con CLINICAL HISTORY: headache COMPARISON STUDY: No previous studies for comparison. TECHNIQUE: Axial CT of the brain is performed from the vertex to the skull base. IV contrast was not administered for this examination. A dose lowering technique was utilized adhering to the principles of ALARA. CT DOSE: 537.48 mGy.cm FINDINGS: No intra or extra-axial mass lesions are visualized. There is no CT evidence of acute cortical infarc tion. There is no evidence of midline shift. There is no acute hemorrhage. No calvarial fractures ar e visualized. There is no evidence of pathologic ventricular dilatation. There is opacification of a single left-sided ethmoid air cell. IMPRESSION: No acute intracranial findings ACT 112: Negative or not required by law. Electronically signed by: Michael Rojas M.D. 10/12/2019 7:04 PM
[2019-10-12 20:08] LABS: Lyme Ab IgG w/WB Rflx Negative (Negative); Lyme Ab IgM w/WB Rflx Negative (Negative)
--- NOTE | 2019-10-12 20:12 | Fluoroscopy Report ---
FL lumbar puncture diagnostic CLINICAL HISTORY: A, sepsis COMPARISON STUDY: None FLUOROSCOPY TIME: 4 seconds. NUMBER OF FLUOROSCOPIC IMAGES: 1 FINDINGS: A timeout was performed. The risks of the procedure were explained the patient informed consent was obtained. Patient was prepped and draped in a sterile fashion. The skin was anesthetized with 1% lidocaine. A lumbar puncture was performed at the L4-5 level with a 20-gauge spinal needle. 8 cc of clear CSF wa s withdrawn and and eighth tubes. The fluid was sent for laboratory analysis as specified b y the referring clinician. There were no immediate complications. IMPRESSION: Successful lumbar puncture performed at the L4-5 level. 8 cc of clear CSF was withdrawn and into 8 tubes. The fluid was sent for laboratory analysis ACT 112: Negative or not required by law. Electronically signed by: Michael Rojas M.D. 10/12/2019 8:11 PM
[2019-10-12 20:19] LABS: Appearance CSF Clear; CSF Count Tube # 3; CSF Xanthrochromic No xanthochromia; Color CSF Colorless; Red Blood Cell CSF (A) 0 /uL (0-); Red Blood Cell CSF (B) 0 /uL (0-); White Blood Cell CSF (A) 2 /uL (0-5); White Blood Cell CSF (B) 1 /uL (0-5)
[2019-10-12] MEDS ORDERED: SODIUM CHLORIDE 0.9% 500 ML IV SCH (20:30)
[2019-10-12 20:32] LABS: Total Protein CSF 34.4 mg/dl (15-45)
--- NOTE | 2019-10-12 20:39 | Pharmacy Report ---
Pharmacy Abx Initial Consult - Date of Service October 12, 2019 - Pharmacy Dosing Scope Date of Consult: 10/12/19 Consultation requested by: Berna LANGLEY Pharmacy is consulted to initiate vancomycin IV dosing therapy, order appropriate labs and adjust drug dose/frequency. - Subjective The patient is a 34 year old F admitted on 10/12/19 12:06. - Objective Height: 5 ft 2 in Weight: 56 kg Vital Signs (Past 12hrs): Vital Signs Temp Pulse Pulse Resp BP BP Pulse Ox 10/12/19 17:56 37.3 C 125 H 80/42 L 100 10/12/19 16:28 37.1 C 120 H 22 91/55 L 100 10/12/19 16:00 122 H 10/12/19 15:31 37.6 C H 126 H 22 87/48 L 100 10/12/19 13:28 37.8 C H 78 18 105/68 98 10/12/19 10:28 39.4 C H 132 H 18 104/56 L 98 10/12/19 09:31 38.4 C H 132 H 18 105/58 L 98 Lab Results (24hrs): Laboratory Tests (24 Hours) 10/12/19 10/12/19 10/12/19 08:54 08:54 08:54 WBC 4.05 L Neut # (Auto) 3.26 Creatinine 0.75 Est Cr Clr Drug Dosing 85.2 Procalcitonin 0.06 Micro Results: 10/12/19 10:27 Aerobic Blood Culture - Pending Blood Anaerobic Blood Culture - Pending 10/12/19 10:25 Aerobic Blood Culture - Pending Blood Anaerobic Blood Culture - Pending - Assessment & Plan Assessment 34 year old F receiving empiric vancomycin, ceftriaxone, and acyclovir for treatment of febrile illness. At this point, empirically covering for bacterial/viral meningitis. At home, patient complained of lower back pain, right hip pain, fevers, and rigors. Microbiology/serology: Blood cultures x 2 (10/12/19): gram-positive cocci in chains x 2 Influenza A/B negative Plan Vancomycin IV * Estimated PK Parameters: Vd 0.7 L/kg, Jh 0.075 hr-1, t1/2 9.2 hr * Loading dose: 1250 mg (22 mg/kg) * Maintenance dose: 750 mg IV (13 mg/kg) every 8 hours * Goal trough level for meningitis : 15 to 20 mcg/mL * Trough/Random level ordered for 10/13/2019 @1330 prior to 4th dose Ceftriaxone IV * 2 g IV q12h - appropriate for meningitis dosing Acyclovir IV * 560 mg (10 mg/kg) IV q8h - appropriate for meningitis dosing Pharmacy will continue to follow and will adjust dose/frequency as necessary. Thank you.
[2019-10-12] MEDS: cefTRIAXone SODIUM 2,000 MG in DEXTROSE 5% 50 ML IV SCH (22:02)
[2019-10-12] MEDS: VANCOMYCIN HCL 750 MG in SODIUM CHLORIDE 0.9% 250 ML IV SCH (22:50)
[2019-10-13] MEDS ORDERED: VANCOMYCIN HCL 1,250 MG in SODIUM CHLORIDE 0.9% 250 ML IV SCH (02:00)
[2019-10-13] MEDS: SODIUM CHLORIDE 0.9% 1000ML 1,000 ML IV SCH ×2 (03:44→11:28)
[2019-10-13] MEDS: ACETAMINOPHEN 325 MG TAB PO PRN ×5 (04:28→23:58)
[2019-10-13] MEDS: VANCOMYCIN HCL 750 MG in SODIUM CHLORIDE 0.9% 250 ML IV SCH ×2 (05:59→14:02)
[2019-10-13 07:03] LABS: Hematocrit (blood only) 32.9 % (37-47); Mean Corpuscular Hemoglobin 30.7 pg (25-34); Mean Corpuscular Hgb Conc 33.4 g/dL (32-36); Mean Corpuscular Volume 91.9 fL (80-100); Mean Platelet Volume 8.8 fL (7.4-10.4); Platelet Count 203 K/uL (130-400); RDW Coefficient of Variation 13.4 % (11.5-14.5); RDW Standard Deviation 45.1 fL (36.4-46.3); Red Blood Count 3.58 M/uL (4.2-5.4); White Blood Count 20.68 K/uL (4.8-10.8)
[2019-10-13 07:42] LABS: BUN Creatinine Ratio 11.4 (10-20); Calcium 8.3 mg/dl (8.5-10.1); Creatinine Clr Calc Pharmacy 96.8 ml/min; Est GFR (African American) 135.5; Est GFR (Non-African American) 116.9; Magnesium 2.3 mg/dl (1.8-2.4)
--- NOTE | 2019-10-13 08:55 | Ultrasound Report ---
ULTRASOUND OF THE PELVIS CLINICAL HISTORY: Endometrial thickening. COMPARISON STUDY: Pelvic CT dated 10/12/2019. TECHNIQUE: Real-time, grayscale, and color flow sonography of the pelvis is performed both transabdom inally and endovaginally. Images are reviewed in the transverse and longitudinal planes. FINDINGS: Uterus: The uterus is normal in size and echotexture, measuring 10.3 x 4.0 x 5.7 cm. No endometrial m ass lesion is seen. The uterus demonstrates arcuate configuration. Endometrium: The endometrium is thickened measuring up to 1.6 cm. No abnormal vascularity is seen on color imaging. Ovaries: There is a 7.1 x 5.8 x 7.2 cm echogenic mass lesion identified in the right adnexa associate d with the right ovary. When correlated with the 10/12/2007 CT this is consistent with a dermoid. The left ovary measures 4.1 x 3.1 x 3.4 cm. A 1.4 cm complex/hemorrhagic follicle is noted on the left. A dditional follicles are seen bilaterally. Normal Doppler waveforms are shown within both ovaries. Pelvis: There is trace free fluid in the cul-de-sac. IMPRESSION: 1. The endometrium is thickened measuring up to 1.6 cm. 2. A 7.2 cm right adnexal mass is consistent with a dermoid when correlated with yesterday's pelvic C T. 3. Trace free fluid in the cul-de-sac is nonspecific and likely within physiologic limits. ACT 112: Negative or not required by law. Electronically signed by: Luisito Mcneal M.D. 10/13/2019 8:53 AM
[2019-10-13] MEDS: cefTRIAXone SODIUM 2,000 MG in DEXTROSE 5% 50 ML IV SCH ×2 (09:00→20:45)
--- NOTE | 2019-10-13 09:19 | Hospitalist Progress Note ---
Date of Service October 13, 2019 Assessment & Plan (1) Sepsis: (1) Sepsis secondary to Gram Positive Bacteremia per Admitting service notes: -Patient presenting from home with reports of low back pain, right hip pain, fever and rigors -Work-up in the ED unrevealing for an obvious infectious source; children were recently sick with GI illness, suspect patient has underlying viral illness -Influenza negative, CXR clear, UA does not suggest infection -No signs of infection involving right hip and lumbar spine on CT scan - fever improving blood cultures: Group B strep x 2 bottles repeat blood cultures: pending - s/p Lumbar tap: CSF analysis: negative for meningitis CSF fluid culture: pending - ID consulted recommend echo, (+) focal thickening anterior mitral valve with borderline posterior mitral valve leaflet prolapse KATIE recommended, Enroller consulted - patient was reporting mild dyspnea in the afternoon O2 sats 100% on room air CXR unrevealing ordered Lasix 20mg IV, Nebs, O2 supplement--> will monitor (2) Thickened endometrium: (3) Ovarian mass -CT ABD/pelvis showing a 6.6 x 6.1 cm mass within the right ovary demonstrating fat, calcification, and fluid consistent with an ovarian dermoid and heterogeneous and thickened appearance to the endometrium which extends into the wall of the uterine fundus which could represent an endometrial mass or focal adenomyoma. -Pelvic ultrasound: pending -WARP TRUCKER consult: pending (4) DVT prophylaxis: -SCDs, ambulate - avoiding anticoagulation in light of endometrial mass/adenomyoma case discussed with patient in detail and at length all questions answered she is understanding, agreeable, and comfortable with the plan of care Subjective ff up for sepsis seen sitting up in bed, comfortable states she feels improved compared to yesterday low back pain and headache improving denies vaginal bleeding, or discharge no abdominal pain, chest pain, dyspnea, dizziness, nausea no other symptoms Review of Systems Review of Systems: All systems reviewed & are unremarkable except as noted in HPI & below Physical Exam Physical Exam: General- oriented x 3, not in distress, speaks in sentences with no effort or accessory muscle use Head- atraumatic Eyes- PERRL, EOMI, anicteric ENT- oropharynx clear Neck- supple, no JVD, no adenopathy, no thyromegaly; carotids +2/2, no bruits appreciated Lungs- clear to auscultation bilaterally, no rales/wheezes Heart- normal rate, regular rhythm; no murmur, no gallop, no rub appreciated Abdomen- normal bowel sounds, nondistended, soft, nontender, no masses or hepatosplenomegaly Extremities- no pretibial edema, no calf tenderness; peripheral pulses intact Neuro- alert, oriented x 3; CN 2-12 grossly intact; motor 5/5 bilaterally;sensation 100% on all extremities; no other gross focal neurologic deficits Skin- warm & dry Results & Data Vital Signs (Past 12 Hours) Vital Signs Temp Pulse Pulse Resp BP BP Pulse Ox 10/13/19 07:57 36.8 C 80 14 103/66 100 10/13/19 03:46 37.2 C 84 16 102/64 97 10/13/19 03:30 92 H 20 10/13/19 03:00 95 H 19 10/13/19 02:30 91 H 27 H 10/13/19 02:00 92 H 14 10/13/19 01:30 105 H 29 H 10/13/19 01:00 92 H 19 10/13/19 00:30 92 H 22 10/13/19 00:11 36.9 C 98 H 22 94/55 L 96 10/13/19 00:00 95 H 21 10/12/19 23:30 108 H 20 106/52 L 10/12/19 23:01 109 H 19 10/12/19 23:00 111 H 20 101/53 L 10/12/19 22:30 38.1 C H 110 H 20 112/58 L 10/12/19 22:00 116 H 20 112/56 L 10/12/19 21:30 122 H 22 111/62 Laboratory Results Laboratory Results - last 24 hr 10/12/19 10/12/19 10/12/19 18:41 18:41 18:41 WBC RBC Hgb Hct MCV MCH MCHC RDW Std Deviation RDW Coeff of Dutch Plt Count MPV Sodium Potassium Chloride Carbon Dioxide Anion Gap BUN Creatinine Est Cr Clr Drug Dosing Est GFR ( Amer) Est GFR (Non-Af Amer) BUN/Creatinine Ratio Glucose Calcium Magnesium CSF Appearance CSF Color Xanthrochromic CSF WBC CSF RBC CSF Cell Count Tube # CSF Chemistry Tube # CSF Glucose CSF Total Protein Vancomycin Trough Anaplasma Smear See Comment A. phagocytophilum DNA Pending Lyme Disease IgG Ab Negative Lyme Disease IgM Ab Negative Herpes Virus Source HSV I DNA PCR HSV II DNA PCR Herpesvirus 6 Source HHV-6 DNA (PCR) 10/12/19 10/12/19 10/12/19 19:42 19:42 19:42 WBC RBC Hgb Hct MCV MCH MCHC RDW Std Deviation RDW Coeff of Dutch Plt Count MPV Sodium Potassium Chloride Carbon Dioxide Anion Gap BUN Creatinine Est Cr Clr Drug Dosing Est GFR ( Amer) Est GFR (Non-Af Amer) BUN/Creatinine Ratio Glucose Calcium Magnesium CSF Appearance CSF Color Xanthrochromic CSF WBC CSF RBC CSF Cell Count Tube # CSF Chemistry Tube # 1 CSF Glucose 65 CSF Total Protein 34.4 Vancomycin Trough Anaplasma Smear A. phagocytophilum DNA Lyme Disease IgG Ab Lyme Disease IgM Ab Herpes Virus Source Pending HSV I DNA PCR Pending HSV II DNA PCR Pending Herpesvirus 6 Source Pending HHV-6 DNA (PCR) Pending 10/12/19 10/12/19 10/13/19 19:42 20:10 06:45 WBC 20.68 H D RBC 3.58 L Hgb 11.0 L Hct 32.9 L MCV 91.9 MCH 30.7 MCHC 33.4 RDW Std Deviation 45.1 RDW Coeff of Dutch 13.4 Plt Count 203 MPV 8.8 Sodium Potassium Chloride Carbon Dioxide Anion Gap BUN Creatinine Est Cr Clr Drug Dosing Est GFR ( Amer) Est GFR (Non-Af Amer) BUN/Creatinine Ratio Glucose 112 H Calcium Magnesium CSF Appearance Clear CSF Color Colorless Xanthrochromic No xanthochromia CSF WBC 2 CSF RBC 0 CSF Cell Count Tube # 3 CSF Chemistry Tube # CSF Glucose CSF Total Protein Vancomycin Trough Anaplasma Smear A. phagocytophilum DNA Lyme Disease IgG Ab Lyme Disease IgM Ab Herpes Virus Source HSV I DNA PCR HSV II DNA PCR Herpesvirus 6 Source HHV-6 DNA (PCR) 10/13/19 10/13/19 06:45 13:40 WBC RBC Hgb Hct MCV MCH MCHC RDW Std Deviation RDW Coeff of Dutch Plt Count MPV Sodium 141 Potassium 4.0 D Chloride 118 H Carbon Dioxide 18 L Anion Gap 5.0 BUN 8 Creatinine 0.66 Est Cr Clr Drug Dosing 96.8 Est GFR ( Amer) 135.5 Est GFR (Non-Af Amer) 116.9 BUN/Creatinine Ratio 11.4 Glucose 93 Calcium 8.3 L Magnesium 2.3 CSF Appearance CSF Color Xanthrochromic CSF WBC CSF RBC CSF Cell Count Tube # CSF Chemistry Tube # CSF Glucose CSF Total Protein Vancomycin Trough 7.7 Anaplasma Smear A. phagocytophilum DNA Lyme Disease IgG Ab Lyme Disease IgM Ab Herpes Virus Source HSV I DNA PCR HSV II DNA PCR Herpesvirus 6 Source HHV-6 DNA (PCR)
--- NOTE | 2019-10-13 11:30 | Infectious Disease Consult ---
Date of Consultation October 13, 2019 Assessment & Plan (1) Sepsis: continue abx for now, await additional culture data. suspect admissions assistant as source, would consult admissions assistant if not already done. will follow. no evidence for meningitis. (2) Dermoid cyst of right ovary: History of Present Illness Attending Physician: Yeyo Calle MD pt admitted [facility] sudden onset right low back pain and f/c. states sudden onset, h&P states back pain for 1 year however on my exam she denies this. no gu symptoms. no cough, sob, cp, no chaudhari, no neck pain, no visual change. 3 kids and at home, no one sick recenlty. no travel. In ER she was found to have temp 39.4, has been persistently febrile. she had ct head, hip, l spine in ER, all negative. LP done, wbc 2, normal protein, glucose, no pcr done, csf gram stain negative, culture pending. blood cultures growing gpc in chains. repeats pending. ct abd showed a 6x6 right ovary mass with thick endometrium, ultrasound shows 7 cm mass c/w dermoid. wbc initially 4, 20 today but did have IV steroids, she is on ctx and vanco and tolerating well. procalcitonin negative. Ua negative, flu and lyme screen negative. feeling better today, less back pain, still with fevers and weakness, had breakfast did well. no abd pain, no n/v/d. Allergies Allergy/AdvReac Type Severity Reaction Status Date / Time lactose Allergy Intermediate GI SYMPTOMS Verified 10/12/19 10:59 Home Medications Home Medications Medication Instructions Recorded Confirmed Type ibuprofen 400 mg PO Q6H PRN 10/12/19 10/12/19 History omega 6-gfy-vme-fish oil [Fish Oil] 3 cap PO DAILY 10/12/19 10/12/19 History Patient History Medical History No significant medical problems Surgical History H/O wisdom tooth extraction Family History Father Hypertension Social History Preferred Language: Lithuanian Communication Ability: Effective Technical Editor Required: No Beliefs That Will Affect Care: None marital status: Current Living Situation: Spouse Other Information That Helps Us Care for You: No Feels Safe at Home: Yes Safety Concerns: Feels Safe At This Time Smoking Status: Never smoker Hx Alcohol Use: Yes Alcohol type: wine Alcohol Intake Frequency: Rarely Hx Substance Use: No Review of Systems Review of Systems: All systems reviewed & are unremarkable except as noted in HPI & below Physical Exam Constitutional: WD/WN, vitals as above Eyes: PERRL, conjunctivae normal, anicteric sclerae ENMT: external ear and nose normal, oropharynx normal Neck: normal visual inspection; no nuchal rigidity Respiratory: normal respiratory effort, lungs clear to auscultation Cardiovascular: RRR, no murmur, no edema Gastrointestinal (Abdomen): normal bowel sounds, soft, nontender, no hepatosplenomegaly Musculoskeletal: no cyanosis or clubbing, extremities motor strength 5/5 Skin: no rashes, warm and dry Psychiatric: A+Ox3, euthymic affect Results & Data Vital Signs (Past 12 Hours) Vital Signs Temp Pulse Pulse Resp BP BP Pulse Ox 10/13/19 07:57 36.8 C 80 14 103/66 100 10/13/19 03:46 37.2 C 84 16 102/64 97 10/13/19 03:30 92 H 20 10/13/19 03:00 95 H 19 10/13/19 02:30 91 H 27 H 10/13/19 02:00 92 H 14 10/13/19 01:30 105 H 29 H 10/13/19 01:00 92 H 19 10/13/19 00:30 92 H 22 10/13/19 00:11 36.9 C 98 H 22 94/55 L 96 10/13/19 00:00 95 H 21 10/12/19 23:30 108 H 20 106/52 L Laboratory Results Microbiology 10/12/19 10:27 Blood Aerobic Blood Culture - Preliminary Group B Beta Strep 10/12/19 10:27 Blood Anaerobic Blood Culture - Preliminary Group B Beta Strep 10/12/19 10:25 Blood Aerobic Blood Culture - Preliminary Group B Beta Strep 10/12/19 10:25 Blood Anaerobic Blood Culture - Preliminary Group B Beta Strep 10/12/19 19:42 Cerebral Spinal Fluid Gram Stain - Final PG Care Time/CCT Total # of Minutes Spent Total Time Spent with Patient: Total time spent is greater than 50% in coordination of care (as documented) at patient's floor/unit and/or counseling patient: Coding Level of Care Code 24248 Inpt Consult Level 4 Diagnoses Sepsis A41.9 Sepsis acute organ dysfunction status: unspecified Sepsis type: sepsis due to unspecified organism Dermoid cyst of right ovary D27.0 (1) Sepsis Sepsis acute organ dysfunction status: unspecified Sepsis type: sepsis due to unspecified organism Qualified Code(s): A41.9 - Sepsis, unspecified organism
[2019-10-13] MEDS ORDERED: VANCOMYCIN TROUGH ONE (13:30)
[2019-10-13] MEDS ORDERED: LEVALBUTEROL 1.25MG/0.5ML NEB NEB STA (14:02)
[2019-10-13] MEDS ORDERED: LEVALBUTEROL 1.25MG/0.5ML NEB NEB PRN (14:03)
--- NOTE | 2019-10-13 14:26 | XRay Report ---
SINGLE VIEW CHEST CLINICAL HISTORY: Dyspnea. FINDINGS: An AP, portable, upright chest radiograph is compared to study dated 10/12/2019. The cardiom ediastinal silhouette is unremarkable. The lungs and pleural spaces are clear. No pneumothorax is see n. The bony thorax is grossly intact. IMPRESSION: No active disease in the chest. ACT 112: Negative or not required by law. Electronically signed by: Luisito Mcneal M.D. 10/13/2019 2:24 PM
--- NOTE | 2019-10-13 15:18 | Pharmacy Report ---
Pharmacy Abx Dose Short Note - Date of Service October 13, 2019 - Assessment & Plan Assessment * 34 year old F receiving vancomycin + ceftriaxone for treatment of sepsis, bacteremia, likely from gynecologic source * Pharm consulted for vancomycin dosing * Day # 2 of antimicrobial therapy * Renal fxn stable * No fever today, Tmax 39.4 yesterday, + leukocytosis, not hypotensive, sat well on room air * BLCXs growing Grp B Strep - sensitivities pending, but usually well covered with beta-lactam therapy * + dermoid cyst on imaging Plan Vancomycin * Currently receiving 750mg Q 8 hrs * Trough level of 7.7 mcg/mL is sub-therapeutic however was not drawn at steady- state (level was drawn after 2 maint doses). Prior doses hung on time and level drawn at the appropriate time. * Change to 1000 mg IV every 8 hours - 1st dose to be hung 6 hrs after last dose due to low level * Goal trough level for bacteremia : 15 to 20 mcg/mL * Trough level ordered w/ 3rd dose of new regimen Pharmacy will continue to follow and will adjust dose/frequency as necessary. Thank you.
[2019-10-13] MEDS ORDERED: FUROSEMIDE 20 MG in SYRINGE 0 ML IV ONE (16:32)
--- NOTE | 2019-10-13 16:33 | Cardiology Consultation ---
Date of Consultation October 13, 2019 Assessment & Plan (1) Fever: At this point her clinical work-up is unremarkable including negative lumbar puncture for source of infection however blood cultures are positive with group B Streptococcus x2. Thorough review of history does not reveal a nidus for infection either. 2D echocardiogram findings show focal thickening of the anterior mitral valve leaflet without obvious pedunculated mass. Given her otherwise unremarkable work-up along with blood cultures positive for group B streptococcus there is obviously a significant concern for infective endocarditis. Modified Pond criteria currently remarkable for 2 major clinical criteria given the echocardiographic findings along with blood cultures Along with a single minor criterion of fever. No vascular or immunologic phenomenon are present. At this point a transesophageal echocardiogram is warranted for further visual inspection of the lesion. The procedure along with the risks and benefits were discussed with the patient and her at great lengths. They state that they understand the reasoning to perform the KATIE, accepting of the risks and wished to proceed. The patient will be made n.p.o. after midnight and will plan on KATIE in the a.m. History of Present Illness Reason for Consultation: Possible mitral valve endocarditis Requesting Physician: Dr. Calle Attending Physician: Yeyo Calle MD History of Present Illness It was my pleasure to see Mrs. Conteh in consultation today October 13, 2019. She is a very pleasant 34-year-old woman who presented to [facility] emergently with complaints of nausea, lightheadedness and vomiting. She is been in her normal state of health lately dealing some chronic nagging hip issues however, on the morning of 10/12/2019 she woke up not feeling well. She then had a sudden bout of shaking, nausea and myalgias. EMS was summoned and she was brought in the emergency department. Upon arrival her initial work-up was unremarkable but given the high suspicion a lumbar puncture was performed which likely came back unremarkable. Currently she states that she still does not feel well. She is spinning continue to experience myalgias, diaphoresis and ongoing nausea. She denies any recent sick contacts, however, she does have several young children that have had occasional sniffles but nothing significant. She is not had any recent dental work. She denies any recent trauma or superficial wounds that she remembers. She has not had any recent travel. She does have a dog and cat in the home and they remember most recently taking a tick off the dog several months ago but nothing recently. The patient denies any personal recent history of tick bites or rashes. She also denies any peripheral nodule formation or splinter hemorrhaging visualized underneath her nailbeds. Upon review of the outpatient medical records the patient did have a visit with primary care in November 2018 where she did voice complaints of a facial rash lasting for approximately 18 months and also occasional muscle and joint aches at that time. Initial rheumatologic work-up including CHARLEE, CRP and rheumatoid factor were all unremarkable at that time. She denies any family history of rheumatologic disorders. She denies any cardiac history and denies ever being diagnosed with a murmur. 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 Appears ill and diaphoretic. Very thin HEENT: Normocephalic, atraumatic. Pupils equal, round and reactive to light and accommodation. Extraocular muscles are intact. Anicteric sclera. Moist mucous membranes. Neck: No JVD. No bruit. Cardiovascular: Regular. No S-4. Normal S-1 and S-2. No S-3. No murmurs, rubs or gallops. Pulmonary: Clear to auscultation bilaterally. No rales, rhonchi, or wheezing. Abdomen: Bowel sounds x 4, soft. No rebound, guarding or tenderness. No organomegaly. Extremities: No clubbing, cyanosis or edema. +2 pedal pulses bilaterally. Skin: Warm and dry. Results & Data Vital Signs (Past 12 Hours) Vital Signs Temp Pulse Resp BP Pulse Ox 10/13/19 15:37 37.5 C 104 H 18 111/78 100 10/13/19 14:25 101 H 16 100 10/13/19 11:46 37.6 C H 84 16 97/64 L 100 10/13/19 07:57 36.8 C 80 14 103/66 100 Laboratory Results Laboratory Results - last 24 hr 10/12/19 10/12/19 10/12/19 18:41 18:41 18:41 WBC RBC Hgb Hct MCV MCH MCHC RDW Std Deviation RDW Coeff of Dutch Plt Count MPV Sodium Potassium Chloride Carbon Dioxide Anion Gap BUN Creatinine Est Cr Clr Drug Dosing Est GFR ( Amer) Est GFR (Non-Af Amer) BUN/Creatinine Ratio Glucose Calcium Magnesium CSF Appearance CSF Color Xanthrochromic CSF WBC CSF RBC CSF Cell Count Tube # CSF Chemistry Tube # CSF Glucose CSF Total Protein Vancomycin Trough Anaplasma Smear See Comment A. phagocytophilum DNA Pending Lyme Disease IgG Ab Negative Lyme Disease IgM Ab Negative Herpes Virus Source HSV I DNA PCR HSV II DNA PCR Herpesvirus 6 Source HHV-6 DNA (PCR) 10/12/19 10/12/19 10/12/19 19:42 19:42 19:42 WBC RBC Hgb Hct MCV MCH MCHC RDW Std Deviation RDW Coeff of Dutch Plt Count MPV Sodium Potassium Chloride Carbon Dioxide Anion Gap BUN Creatinine Est Cr Clr Drug Dosing Est GFR ( Amer) Est GFR (Non-Af Amer) BUN/Creatinine Ratio Glucose Calcium Magnesium CSF Appearance CSF Color Xanthrochromic CSF WBC CSF RBC CSF Cell Count Tube # CSF Chemistry Tube # 1 CSF Glucose 65 CSF Total Protein 34.4 Vancomycin Trough Anaplasma Smear A. phagocytophilum DNA Lyme Disease IgG Ab Lyme Disease IgM Ab Herpes Virus Source Pending HSV I DNA PCR Pending HSV II DNA PCR Pending Herpesvirus 6 Source Pending HHV-6 DNA (PCR) Pending 10/12/19 10/12/19 10/13/19 19:42 20:10 06:45 WBC 20.68 H D RBC 3.58 L Hgb 11.0 L Hct 32.9 L MCV 91.9 MCH 30.7 MCHC 33.4 RDW Std Deviation 45.1 RDW Coeff of Dutch 13.4 Plt Count 203 MPV 8.8 Sodium Potassium Chloride Carbon Dioxide Anion Gap BUN Creatinine Est Cr Clr Drug Dosing Est GFR ( Amer) Est GFR (Non-Af Amer) BUN/Creatinine Ratio Glucose 112 H Calcium Magnesium CSF Appearance Clear CSF Color Colorless Xanthrochromic No xanthochromia CSF WBC 2 CSF RBC 0 CSF Cell Count Tube # 3 CSF Chemistry Tube # CSF Glucose CSF Total Protein Vancomycin Trough Anaplasma Smear A. phagocytophilum DNA Lyme Disease IgG Ab Lyme Disease IgM Ab Herpes Virus Source HSV I DNA PCR HSV II DNA PCR Herpesvirus 6 Source HHV-6 DNA (PCR) 10/13/19 10/13/19 06:45 13:40 WBC RBC Hgb Hct MCV MCH MCHC RDW Std Deviation RDW Coeff of Dutch Plt Count MPV Sodium 141 Potassium 4.0 D Chloride 118 H Carbon Dioxide 18 L Anion Gap 5.0 BUN 8 Creatinine 0.66 Est Cr Clr Drug Dosing 96.8 Est GFR ( Amer) 135.5 Est GFR (Non-Af Amer) 116.9 BUN/Creatinine Ratio 11.4 Glucose 93 Calcium 8.3 L Magnesium 2.3 CSF Appearance CSF Color Xanthrochromic CSF WBC CSF RBC CSF Cell Count Tube # CSF Chemistry Tube # CSF Glucose CSF Total Protein Vancomycin Trough 7.7 Anaplasma Smear A. phagocytophilum DNA Lyme Disease IgG Ab Lyme Disease IgM Ab Herpes Virus Source HSV I DNA PCR HSV II DNA PCR Herpesvirus 6 Source HHV-6 DNA (PCR) Medications Administered Current Inpatient Medications Acetaminophen (Tylenol) 650 mg PO Q4H PRN PRN Reason: pain/fever Stop: 11/11/19 15:30 Last Admin: 10/13/19 15:27 Dose: 650 mg Documented by: Ceftriaxone Sodium 2,000 mg/ (Dextrose) 70 mls @ 100 mls/hr IV Q12H [facility]; Protocol Stop: 10/22/19 20:59 Last Infusion: 10/13/19 10:05 Dose: Infused Documented by: Vancomycin HCl 1,000 mg/ (Sodium Chloride) 270 mls @ 125 mls/hr IV Q8H NADINE; Protocol Stop: 10/27/19 19:59 Levalbuterol HCl (Xopenex 1.25mg/0.5ml Neb) 1.25 mg NEB Q6H PRN PRN Reason: Shortness Of Breath Or Wheezing Stop: 11/12/19 14:14 Miscellaneous Information (Consult) 1 ea N/A UD PRN PRN Reason: Consult Stop: 11/11/19 18:28
--- NOTE | 2019-10-13 17:36 | Electrocardiogram Report ---
Test Reason : Blood Pressure : / mmHG Vent. Rate : 120 BPM Atrial Rate : 120 BPM P-R Int : 136 ms QRS Dur : 086 ms QT Int : 284 ms P-R-T Axes : 040 088 012 degrees QTc Int : 401 ms Sinus tachycardia T wave abnormality, consider inferior ischemia Abnormal ECG No previous ECGs available Confirmed by Suman Redman ([id number]) on 10/13/2019 5:36:16 PM Referred By: REFERRED SELF Confirmed By:Eric Redman
[2019-10-13] MEDS: VANCOMYCIN HCL 1,000 MG in SODIUM CHLORIDE 0.9% 250 ML IV SCH (19:38)
[2019-10-14] MEDS ORDERED: VANCOMYCIN TROUGH ONE ×2 (01:30→11:30)
[2019-10-14] MEDS: VANCOMYCIN HCL 1,000 MG in SODIUM CHLORIDE 0.9% 250 ML IV SCH ×3 (03:49→17:03)
[2019-10-14 08:00] LABS: Creatinine Clr Calc Pharmacy 92.6 ml/min; Est GFR (African American) 133.5; Est GFR (Non-African American) 115.2
[2019-10-14] MEDS: cefTRIAXone SODIUM 2,000 MG in DEXTROSE 5% 50 ML IV SCH ×2 (08:03→20:55)
[2019-10-14] MEDS: ACETAMINOPHEN 325 MG TAB PO PRN ×2 (08:04→19:48)
[2019-10-14] MEDS ORDERED: fentaNYL citrate 100 MCG/2 ML VIAL ONE (08:58)
[2019-10-14] MEDS ORDERED: MIDAZOLAM HCL 1 MG/ML 2ML VIAL ONE (08:58)
[2019-10-14] MEDS ORDERED: BENZOCAIN/TETRACA/BUTAM SPRAY 200 APPLN/20 GM SPRY EXT ONE (09:15)
[2019-10-14] MEDS ORDERED: FLUMAZENIL 0.1 MG/1 ML 10 ML VIAL ONE (09:19)
[2019-10-14] MEDS ORDERED: NALOXONE HCL 0.4 MG/1 ML VIAL/CARP ONE (09:19)
--- NOTE | 2019-10-14 09:29 | Infectious Disease Progress Nt ---
Date of Service October 14, 2019 Assessment & Plan (1) Sepsis: continue abx for now, await additional culture data. suspect carpet sewing machine operator as source, would consult carpet sewing machine operator if not already done. will follow. no evidence for meningitis. Highly concerned for IE with abnormal TTE, await KATIE findings, right ovary mass concerning as source for infection especially with new onset right sided back pain and GBS growing from blood, follow KATIE findings and repeat blood cultures, hope to narrow abx in am. (2) Dermoid cyst of right ovary: Subjective Initial blood cultures growing auguste sensitive gbs. repeat pending, TTE with abnormality on MV, spoke with cardio, concerning for IE, undergoing KATIE at time of ID rounds. fevers overnight, tmax 37.9, remains on ctx and vanco, tolerating well. am labs pending. CSF cutlure remains negative, carpet sewing machine operator eval pending Results & Data Vital Signs (Past 12 Hours) Vital Signs Temp Pulse Pulse Pulse Resp BP BP 10/14/19 08:10 37.3 C 85 16 135/65 10/14/19 04:20 37.1 C 80 17 109/59 L 10/13/19 23:59 85 10/13/19 23:21 37.4 C 93 H 18 108/62 Pulse Ox 10/14/19 08:10 100 10/14/19 04:20 98 10/13/19 23:59 10/13/19 23:21 98 Laboratory Results Microbiology 10/13/19 06:54 Blood Aerobic Blood Culture - Preliminary No growth in Aerobic bottle after 24 hours. 10/13/19 06:45 Blood Aerobic Blood Culture - Preliminary No growth in Aerobic bottle after 24 hours. 10/13/19 06:45 Blood Anaerobic Blood Culture - Preliminary No growth in Anaerobic bottle after 24 hours. 10/12/19 10:27 Blood Aerobic Blood Culture - Final Group B Beta Strep 10/12/19 10:27 Blood Anaerobic Blood Culture - Final Group B Beta Strep 10/12/19 10:25 Blood Aerobic Blood Culture - Final Group B Beta Strep 10/12/19 10:25 Blood Anaerobic Blood Culture - Final Group B Beta Strep 10/12/19 19:42 Cerebral Spinal Fluid Gram Stain - Final 10/12/19 19:42 Cerebral Spinal Fluid CSF Culture - Preliminary No growth to date. PG Care Time/CCT Total # of Minutes Spent Total Time Spent with Patient: Total time spent is greater than 50% in coordination of care (as documented) at patient's floor/unit and/or counseling patient: Coding Level of Care Code 33678 Subseq Hosp Care Lvl 1 Diagnoses Sepsis A41.9 Sepsis acute organ dysfunction status: unspecified Sepsis type: sepsis due to unspecified organism Dermoid cyst of right ovary D27.0 (1) Sepsis Sepsis acute organ dysfunction status: unspecified Sepsis type: sepsis due to unspecified organism Qualified Code(s): A41.9 - Sepsis, unspecified organism
--- NOTE | 2019-10-14 09:41 | Pre Anesthesia Assessment ---
Date of Service October 14, 2019 Pre Sedation Assessment Vital Signs Temp Pulse Pulse Pulse Resp BP BP 10/14/19 08:10 37.3 C 85 16 135/65 10/14/19 04:20 37.1 C 80 17 109/59 L 10/13/19 23:59 85 10/13/19 23:21 37.4 C 93 H 18 108/62 10/13/19 20:43 37.5 C 10/13/19 20:00 37.9 C H 98 H 20 123/69 10/13/19 16:00 107 H 10/13/19 15:37 37.5 C 104 H 18 111/78 10/13/19 14:25 101 H 16 10/13/19 11:46 37.6 C H 84 16 97/64 L Pulse Ox 10/14/19 08:10 100 10/14/19 04:20 98 10/13/19 23:59 10/13/19 23:21 98 10/13/19 20:43 10/13/19 20:00 100 10/13/19 16:00 10/13/19 15:37 100 10/13/19 14:25 100 10/13/19 11:46 100 Pre-Sedation Airway Assessment Smoking Status: Never smoker Hx Sleep Apnea: No Short, Thick Neck: No Thyromental Distance: > or= 3.5 Finger Breadths Oral Cavity: + WNL Mallampati Class: I ASA: ASA2 NPO Status Date of Last Intake of Fluids: 10/13/19 Time of Last Intake of Fluids: 21:00 Date of Last Intake of Solid Food: 10/13/19 Time of Last Intake of Solid Foods: 21:00 Notes The planned sedation has been discussed with the patient. Informed Consent was obtained. I have identified the patient, determined the appropriateness of sedation and have assessed the patient immediately prior to the procedure. All medicine(s) and interventions are by my order.
[2019-10-14 10:03] LABS: BUN Creatinine Ratio 17.4 (10-20); Calcium 8.2 mg/dl (8.5-10.1); Creatinine Clr Calc Pharmacy 98.3 ml/min; Est GFR (African American) 136.2; Est GFR (Non-African American) 117.5; Potassium 3.3 mmol/L (3.5-5.1)
[2019-10-14 10:09] LABS: Basophils # (auto) 0.03 K/uL (0-0.2); Basophils % (auto) 0.3 %; Eosinophils # (auto) 0.01 K/uL (0-0.5); Eosinophils % (auto) 0.1 %; Hematocrit (blood only) 33.7 % (37-47); Hemoglobin 11.3 g/dL (12.0-16.0); Immature Granulocytes # (auto) 0.05 K/uL (0.00-0.02); Immature Granulocytes % (auto) 0.6 %; Lymphocytes # (auto) 0.51 K/uL (1.2-3.4); Lymphocytes % (auto) 5.6 %; Mean Corpuscular Hemoglobin 30.4 pg (25-34); Mean Corpuscular Hgb Conc 33.5 g/dL (32-36); Mean Corpuscular Volume 90.6 fL (80-100); Mean Platelet Volume 9.6 fL (7.4-10.4); Monocytes # (auto) 0.06 K/uL (0.11-0.59); Monocytes % (auto) 0.7 %; Neutrophils # (auto) 8.37 K/uL (1.4-6.5); Neutrophils % (auto) 92.7 %; Platelet Count 191 K/uL (130-400); RDW Coefficient of Variation 13.7 % (11.5-14.5); RDW Standard Deviation 45.5 fL (36.4-46.3); Red Blood Count 3.72 M/uL (4.2-5.4); White Blood Count 9.03 K/uL (4.8-10.8)
--- NOTE | 2019-10-14 10:10 | Post Anesthesia Assessment ---
Date of Service October 14, 2019 Post Sedation Assessment Vital Signs Temp Pulse Pulse Pulse Resp BP BP 10/14/19 10:05 81 16 103/73 10/14/19 10:00 72 16 97/56 L 10/14/19 09:56 86 16 101/62 10/14/19 09:50 86 16 112/59 L 10/14/19 09:47 88 16 115/81 10/14/19 08:10 37.3 C 85 16 135/65 10/14/19 04:20 37.1 C 80 17 109/59 L 10/13/19 23:59 85 10/13/19 23:21 37.4 C 93 H 18 108/62 10/13/19 20:43 37.5 C 10/13/19 20:00 37.9 C H 98 H 20 123/69 10/13/19 16:00 107 H 10/13/19 15:37 37.5 C 104 H 18 111/78 10/13/19 14:25 101 H 16 10/13/19 11:46 37.6 C H 84 16 97/64 L Pulse Ox 10/14/19 10:05 99 10/14/19 10:00 99 10/14/19 09:56 100 10/14/19 09:50 100 10/14/19 09:47 100 10/14/19 08:10 100 10/14/19 04:20 98 10/13/19 23:59 10/13/19 23:21 98 10/13/19 20:43 10/13/19 20:00 100 10/13/19 16:00 10/13/19 15:37 100 10/13/19 14:25 100 10/13/19 11:46 100 Recovery Score Activity: Moves 4 extremities Respiration: Deep Breath/Cough Circulation: +/-20% PreAnes Value Consciousness: Arouseable (by name) Oxygen Saturation: O2 needed for >90% Post Anesthesia Score: 8 Discharge Sedation Level of Care: Fast Track Phase II Post Sedation Plan On clinical assessment, the patient appears to have tolerated the sedation without complications. Patient is recovering as anticipated. Patient will continue to be monitored by nursing and may be discharged when sedation discharge criteria are met per below protocol. Upon Completions of procedure up to 15 minutes continue every 5 minute vital signs and the P.A.R. score; then discharge to a Phase I or Fast Track to Phase II per the following guidelines: * Discharge Patient to appropriate Phase II area if PAR is 8 or greater or return to pre- procedure baseline. The post - procedure orders will be as directed. * If PAR score is less than 8 or not return to pre-procedure baseline then patient will follow Phase I monitoring till PAR is reached for Phase II. The Phase I may be done in procedure room or may call to secure a Phase I area. * If naloxone or flumazenil are used for reversal, hold in Phase I for continued monitoring from when last reversal dose was given for a minimum of 60 minutes or longer pending the nurse and/or physician discretion of patient condition before discharge to Phase II. Please call the Sedation Physician to re-evaluate and complete post-note for discharge to Phase II area. Do NOT discharge from procedure sedation or Phase 1 until post- sedation evaluation note is complete by procedure /sedation MD Sedation Discharge Instructions to be given to the patient at discharge to home.
--- NOTE | 2019-10-14 10:12 | Operative Report ---
Post Operative Report Pre & Post Diagnosis Operation Date: 10/14/19 09:30 <No data on this case meets the specified criteria> I identified the patient and participated in the time-out.: Yes Procedure Operation Date: 10/14/19 09:30 <No data on this case meets the specified criteria> Surgeon Dimas Mejias, Residential Air Sealing Technician none Estimated Blood Loss 0 Findings See Below Specimens none Description of Procedure Informed consent obtained adequate moderate conscious sedation achieved with a total of Versed 3mg and Fentanyl 75mcg KATIE completed, mild focal thicknening of the anterior mitral valve leaflet, appearance is NOT consistent with infectious etiology pt tolerated well to be recovered per protocol and return to TELE start time:0947 stop time: 1007 I attest to the content of the Intraoperative Record and any orders documented therein. Any exceptions are noted below.
--- NOTE | 2019-10-14 12:13 | Cardiology Progress Note ---
Date of Service October 14, 2019 Assessment & Plan (1) Fever: Mitral valve very well visualized on transesophageal echocardiogram and small nonspecific focal thickening of the anterior mitral valve leaflet is present. This appearance is NOT consistent with infective endocarditis. I believe this either represents a nonspecific finding or possible sign of rheumatologic disorder. The patient and her were counseled on the findings. No further cardiac testing or intervention at this time. Subjective Patient seen and examined prior to and following transesophageal echocardiogram. States she still felt a little feverish overnight with continued myalgias. But somewhat improved since admission. Telemetry reviewed: Normal sinus rhythm without any arrhythmias or significant ectopy. Review of Systems Review of Systems: All systems reviewed & are unremarkable except as noted in HPI & below Physical Exam Physical Exam: Physical Exam: General: Awake, alert and oriented x 3. No acute distress. HEENT: Normocephalic, atraumatic. Pupils equal, round and reactive to light and accommodation. Extraocular muscles are intact. Anicteric sclera. Moist mucous membranes. Neck: No JVD. No bruit. Cardiovascular: Regular. No S-4. Normal S-1 and S-2. No S-3. No murmurs, rubs or gallops. Pulmonary: Clear to auscultation bilaterally. No rales, rhonchi, or wheezing. Abdomen: Bowel sounds x 4, soft. No rebound, guarding or tenderness. No organomegaly. Extremities: No clubbing, cyanosis or edema. +2 pedal pulses bilaterally. Skin: Warm and dry. Results & Data Vital Signs (Past 12 Hours) Vital Signs Temp Pulse Pulse Pulse Resp BP BP 10/14/19 10:56 36.4 C L 83 20 114/78 10/14/19 10:22 83 85 16 112/73 112/73 10/14/19 10:05 81 16 103/73 10/14/19 10:00 72 16 97/56 L 10/14/19 09:56 86 16 101/62 10/14/19 09:50 86 16 112/59 L 10/14/19 09:47 88 16 115/81 10/14/19 08:10 37.3 C 85 16 135/65 10/14/19 04:20 37.1 C 80 17 109/59 L Pulse Ox 10/14/19 10:56 98 10/14/19 10:22 97 10/14/19 10:05 99 10/14/19 10:00 99 10/14/19 09:56 100 10/14/19 09:50 100 10/14/19 09:47 100 10/14/19 08:10 100 10/14/19 04:20 98
--- NOTE | 2019-10-14 13:24 | Pharmacy Report ---
Pharmacy Abx Dose Short Note - Date of Service October 14, 2019 - Assessment & Plan Assessment * 34 year old F receiving VANCOMYCIN + CEFTRIAXONE IV for Grp B strep bacteremia, possible gynecologic source, possible endocarditis * Pharmacy is consulted to dose VANCOMYCIN IV * Today is day # 3 abx therapy * Grp B strep in 10/12 BLCXs is auguste-sensitive * Repeat BLCXs drawn 10/13 * Renal fxn stable, UOP > 0.5mL/kg/hr Plan Vancomycin * Trough level of 12 mcg/mL is subtherapeutic. Level was drawn at the appropriate time, prior doses hung according to schedule. Level may climb slightly with repeat dosing however we are not yet at goal for bacteremia, possible endocarditis * Change to 1000 mg (19mg/kg) IV every 6 hours - this is aggressive dosing and will need to be monitored closely; given auguste-sensitive organism deescalation to alternative therapy would be less likely to lead to treatment failure due to sub-therapeutic level or renal injury from aggressive regimen; pt is adequately covered with ceftriaxone however despite low troughs * Goal trough level for bacteremia possible endocarditis : 15 to 20 mcg/mL * Trough level ordered with 3rd dose of new regimen Pharmacy will continue to follow and will adjust dose/frequency as necessary. Thank you.
--- NOTE | 2019-10-14 18:48 | Hospitalist Progress Note ---
Date of Service Late entry date of service noted below October 14, 2019 Assessment & Plan (1) Sepsis: (1) Sepsis secondary to Gram Positive Bacteremia per Admitting service notes: -Patient presenting from home with reports of low back pain, right hip pain, fever and rigors -Work-up in the ED unrevealing for an obvious infectious source; children were recently sick with GI illness, suspect patient has underlying viral illness -Influenza negative, CXR clear, UA does not suggest infection -No signs of infection involving right hip and lumbar spine on CT scan - fever continues to improve blood cultures: Group B strep x 2 bottles repeat blood cultures: Negative so far - s/p Lumbar tap: CSF analysis: negative for meningitis CSF fluid culture: pending - ID consulted recommend echo, (+) focal thickening anterior mitral valve with borderline posterior mitral valve leaflet prolapse KATIE recommended, Electrical Estimator consulted: KATIE negative for endocarditis -Continue IV antibiotics for now Anticipate transition to p.o. antibiotics soon -Shortness of breath resolved (2) Thickened endometrium: (3) Ovarian mass -CT ABD/pelvis showing a 6.6 x 6.1 cm mass within the right ovary demonstrating fat, calcification, and fluid consistent with an ovarian dermoid and heterogeneous and thickened appearance to the endometrium which extends into the wall of the uterine fundus which could represent an endometrial mass or focal adenomyoma. -Pelvic ultrasound: pending -INTERLOCKING INSTALLER consult: Discussed with Dr. Leiva, findings unlikely contributing to bacteremia, but will need outpatient close follow-up (4) DVT prophylaxis: -SCDs, ambulate - avoiding anticoagulation in light of endometrial mass/adenomyoma case discussed with patient in detail and at length all questions answered she is understanding, agreeable, and comfortable with the plan of care Subjective Follow-up for group B strep bacteremia, sepsis Seen sitting up in bed, comfortable, not in distress States she continues to feel improved Less weakness, no headache and back pain Shortness of breath, chest pain No vaginal discharge or bleeding No other symptoms Review of Systems Review of Systems: All systems reviewed & are unremarkable except as noted in HPI & below Physical Exam Physical Exam: General- oriented x 3, not in distress, speaks in sentences with no effort or accessory muscle use Eyes- anicteric Neck- no JVD Lungs- clear BS, no crackles bilaterally Heart- normal rate, regular rhythm; no murmurs Abdomen- normal bowel sounds, nondistended, soft, nontender Extremities- no pretibial edema, no calf tenderness Back-no tenderness Neuro- alert, oriented x 3; no gross focal neurologic deficits Skin- warm & dry Results & Data ([facility]) Vital Signs (Past 12 Hours) Vital Signs Temp Pulse Pulse Pulse Resp BP BP 10/14/19 16:00 80 10/14/19 15:21 37.5 C 94 H 20 108/70 10/14/19 12:00 36.5 C 83 20 116/64 10/14/19 10:56 36.4 C L 83 20 114/78 10/14/19 10:22 83 85 16 112/73 112/73 10/14/19 10:05 81 16 103/73 10/14/19 10:00 72 16 97/56 L 10/14/19 09:56 86 16 101/62 10/14/19 09:50 86 16 112/59 L 10/14/19 09:47 88 16 115/81 10/14/19 08:10 37.3 C 85 16 135/65 Pulse Ox 10/14/19 16:00 10/14/19 15:21 100 10/14/19 12:00 98 10/14/19 10:56 98 10/14/19 10:22 97 10/14/19 10:05 99 10/14/19 10:00 99 10/14/19 09:56 100 10/14/19 09:50 100 10/14/19 09:47 100 10/14/19 08:10 100 Laboratory Results All noted and reviewed
[2019-10-14] MEDS ORDERED: POTASSIUM CHLORIDE 20 MEQ TABCR PO STA (20:11)
[2019-10-15] MEDS: VANCOMYCIN HCL 1,000 MG in SODIUM CHLORIDE 0.9% 250 ML IV SCH ×3 (00:08→12:05)
[2019-10-15] MEDS: ACETAMINOPHEN 325 MG TAB PO PRN ×3 (00:24→13:53)
--- NOTE | 2019-10-15 00:27 | Consultation Report ---
DATE OF CONSULTATION: 10/14/2019 REQUESTING PHYSICIAN: Yeyo Calle MD, hospitalist. REASON FOR CONSULTATION: Thickened endometrium. HISTORY OF PRESENT ILLNESS: The patient is a 34-year-old female, last menstrual period unknown, para 3-0-1-3, who presents to the hospital with sepsis secondary to Gram-positive bacteremia. She was seen in the ER with fever, chills, hip pain on the right. ID consult and Cardiology consult were already done. The patient had an ultrasound revealing CT of abdomen and pelvis showing an incidental 6.6 x 6.1 cm mass consistent with a right dermoid. She had thickened endometrium with an endometrial lining of 1.6 cm. She has been having heavier than normal bleeding of late. She is currently sexually active, not using any control or contraception at the present time. She is currently being admitted for sepsis and is on IV antibiotics per ID. Her past OB history is significant for x3, no complications. She has not been seen by plasterer tender since her last delivery. PHYSICAL EXAMINATION: Her abdomen is nontender. There is no rebound or guarding. She has a normal appetite and is not having any evidence of vomiting or diarrhea. ASSESSMENT: Sepsis, fever, thickened endometrium, dermoid of the right. PLAN: We will have patient follow up in the office for evaluation of dermoid and thickened endometrium as an outpatient.
[2019-10-15] MEDS ORDERED: VANCOMYCIN TROUGH ONE ×3 (05:30→17:30)
[2019-10-15 05:39] LABS: Basophils # (auto) 0.04 K/uL (0-0.2); Basophils % (auto) 0.8 %; Eosinophils # (auto) 0.08 K/uL (0-0.5); Eosinophils % (auto) 1.7 %; Hematocrit (blood only) 31.1 % (37-47); Hemoglobin 10.5 g/dL (12.0-16.0); Lymphocytes # (auto) 1.13 K/uL (1.2-3.4); Lymphocytes % (auto) 23.9 %; Mean Corpuscular Hemoglobin 30.2 pg (25-34); Mean Corpuscular Hgb Conc 33.8 g/dL (32-36); Mean Corpuscular Volume 89.4 fL (80-100); Mean Platelet Volume 9.4 fL (7.4-10.4); Monocytes # (auto) 0.17 K/uL (0.11-0.59); Monocytes % (auto) 3.6 %; Platelet Count 179 K/uL (130-400); RDW Coefficient of Variation 13.6 % (11.5-14.5); RDW Standard Deviation 44.5 fL (36.4-46.3); Red Blood Count 3.48 M/uL (4.2-5.4); White Blood Count 4.72 K/uL (4.8-10.8)
[2019-10-15 06:13] LABS: BUN Creatinine Ratio 20.7 (10-20); Calcium 7.9 mg/dl (8.5-10.1); Creatinine Clr Calc Pharmacy 127.8 ml/min; Est GFR (African American) 148.4; Est GFR (Non-African American) 128.1
[2019-10-15] MEDS: cefTRIAXone SODIUM 2,000 MG in DEXTROSE 5% 50 ML IV SCH (09:21)
[2019-10-15 11:32] LABS: HSV Type 1 DNA Not Detected (Not Detected); HSV Type 1&2 DNA Source CSF; HSV Type 2 DNA Not Detected (Not Detected)
--- NOTE | 2019-10-15 12:14 | Pharmacy Report ---
Pharmacy Abx Dose Short Note - Date of Service October 15, 2019 - Assessment & Plan Assessment Assessment * 34 year old F receiving VANCOMYCIN + CEFTRIAXONE IV for Grp B strep bacteremia, possible gynecologic source, possible endocarditis * Pharmacy is consulted to dose VANCOMYCIN IV * Today is day # 4 abx therapy * Grp B strep in 10/12 BLCXs is auguste-sensitive --> consider abx deescalation today? * Repeat BLCXs drawn 10/13 --> no growth to date * KATIE report: negative for vegetations * Renal fxn stable, UOP > 0.5mL/kg/hr Plan Vancomycin * Trough level of 18.3 mcg/mL is therapeutic. Level was drawn at the appropriate time, prior doses hung according to schedule. Level may climb slightly with repeat dosing * Will recheck level this afternoon w/ 1800 dose to confirm we are not exceeding goal trough level w/ aggressive dosing regimen (1000mg Q 6 hrs) * Goal trough level for bacteremia : 15 to 20 mcg/mL * Consider deescalation to penicillin or ampicillin in near future? Or continue more broad coverage for possible gynecologic source?
--- NOTE | 2019-10-15 12:55 | Infectious Disease Progress Nt ---
Date of Service October 15, 2019 Assessment & Plan (1) Sepsis: will change to augmentin per patient request. did suggest continued treatment with IV abx at home however she has declined. ok for d/c when otherwise stable. (2) Dermoid cyst of right ovary: Subjective oob ambulating in room, feeling better but not at baseline. KATIE negative, no fevers overnight, some sweats. no f/c. wbc 4. 10/12 blood cultures growing GBS. Repeat negative, saw direct mail marketer.plans to follow post d/c. would like to be transitioned to po abx today as she is having some GI discomfort with IV abx, no n/v/d. no cp, sob, cough. all remaining ros reviewed and are negative. Review of Systems Review of Systems: All systems reviewed & are unremarkable except as noted in HPI & below Physical Exam Constitutional: WD/WN, vitals as above Eyes: PERRL, conjunctivae normal, anicteric sclerae ENMT: external ear and nose normal, oropharynx normal Neck: normal visual inspection; no nuchal rigidity Respiratory: normal respiratory effort, lungs clear to auscultation Cardiovascular: RRR, no murmur, no edema Gastrointestinal (Abdomen): normal bowel sounds, soft, nontender, no hepatosplenomegaly Musculoskeletal: no cyanosis or clubbing, extremities motor strength 5/5 Skin: no rashes, warm and dry Psychiatric: A+Ox3, euthymic affect Results & Data Vital Signs (Past 12 Hours) Vital Signs Temp Pulse Pulse Resp BP BP Pulse Ox 10/15/19 11:20 36.8 C 75 16 95/62 L 96 10/15/19 07:54 36.5 C 88 17 113/62 99 10/15/19 03:34 36.5 C 86 16 110/62 96 Laboratory Results Microbiology 10/13/19 06:54 Blood Aerobic Blood Culture - Preliminary No growth in Aerobic bottle after 48 hours. 10/13/19 06:54 Blood Anaerobic Blood Culture - Final 10/13/19 06:45 Blood Aerobic Blood Culture - Preliminary No growth in Aerobic bottle after 48 hours. 10/13/19 06:45 Blood Anaerobic Blood Culture - Preliminary No growth in Anaerobic bottle after 48 hours. 10/12/19 19:42 Cerebral Spinal Fluid Gram Stain - Final 10/12/19 19:42 Cerebral Spinal Fluid CSF Culture - Final No growth 10/12/19 10:27 Blood Aerobic Blood Culture - Final Group B Beta Strep 10/12/19 10:27 Blood Anaerobic Blood Culture - Final Group B Beta Strep 10/12/19 10:25 Blood Aerobic Blood Culture - Final Group B Beta Strep 10/12/19 10:25 Blood Anaerobic Blood Culture - Final Group B Beta Strep PG Care Time/CCT Total # of Minutes Spent Total Time Spent with Patient: Total time spent is greater than 50% in coordination of care (as documented) at patient's floor/unit and/or counseling patient: Coding Level of Care Code 36209 Subseq Hosp Care Lvl 3 Diagnoses Sepsis A41.9 Sepsis acute organ dysfunction status: unspecified Sepsis type: sepsis due to unspecified organism Dermoid cyst of right ovary D27.0 (1) Sepsis Sepsis acute organ dysfunction status: unspecified Sepsis type: sepsis due to unspecified organism Qualified Code(s): A41.9 - Sepsis, unspecified organism
[2019-10-15] MEDS: LACTOBACILLUS ACIDOPHILUS (FLORANEX) TAB PO SCH ×2 (18:35→20:14)
[2019-10-15] MEDS: AMOXICILLIN/CLAVULANATE 875 MG TAB PO SCH (18:36)
--- NOTE | 2019-10-15 20:59 | Hospitalist Progress Note ---
Date of Service October 15, 2019 Assessment & Plan (1) Sepsis: (1) Sepsis secondary to Gram Positive Bacteremia per Admitting service notes: -Patient presenting from home with reports of low back pain, right hip pain, fever and rigors -Work-up in the ED unrevealing for an obvious infectious source; children were recently sick with GI illness, suspect patient has underlying viral illness -Influenza negative, CXR clear, UA does not suggest infection -No signs of infection involving right hip and lumbar spine on CT scan -Remains afebrile blood cultures: Group B strep x 2 bottles repeat blood cultures: Negative so far - s/p Lumbar tap: CSF analysis: negative for meningitis CSF fluid culture: pending - ID consulted recommend echo, (+) focal thickening anterior mitral valve with borderline posterior mitral valve leaflet prolapse KATIE recommended, Seaming Machine Operator consulted: KATIE negative for endocarditis -Transition to p.o. Augmentin twice a day today Continues to improve -Shortness of breath resolved (2) Thickened endometrium: (3) Ovarian mass -CT ABD/pelvis showing a 6.6 x 6.1 cm mass within the right ovary demonstrating fat, calcification, and fluid consistent with an ovarian dermoid and heterogeneous and thickened appearance to the endometrium which extends into the wall of the uterine fundus which could represent an endometrial mass or focal adenomyoma. -Pelvic ultrasound: Noted -OPTICAL MANUFACTURING TECHNICIAN consult: Discussed with Dr. Leiva, findings unlikely contributing to bacteremia, but will need outpatient close follow-up -No vaginal bleeding (4) DVT prophylaxis: -SCDs, ambulate - avoiding anticoagulation in light of endometrial mass/adenomyoma case discussed with patient in detail and at length all questions answered she is understanding, agreeable, and comfortable with the plan of care Subjective Follow-up for group B strep bacteremia, sepsis Resting in bed, in good spirits, comfortable not in distress States she feels improved today compared to yesterday but still somewhat weak Denies headache or chest pain or shortness of breath No other symptoms Review of Systems Review of Systems: All systems reviewed & are unremarkable except as noted in HPI & below Physical Exam Physical Exam: General- oriented x 3, not in distress, speaks in sentences with no effort or accessory muscle use Eyes- anicteric Neck- no JVD Lungs- clear BS, no crackles, no wheezing bilaterally Heart- normal rate, regular rhythm; no murmurs Abdomen- normal bowel sounds, nondistended, soft, nontender Extremities- no pretibial edema, no calf tenderness Neuro- alert, oriented x 3; no gross focal neurologic deficits Skin- warm & dry Results & Data ([facility]) Vital Signs (Past 12 Hours) Vital Signs Temp Pulse Resp BP BP Pulse Ox 10/15/19 18:56 36.8 C 85 20 102/59 L 98 10/15/19 15:11 37.0 C 77 18 100/63 97 10/15/19 11:20 36.8 C 75 16 95/62 L 96 Laboratory Results Laboratory Results - last 24 hr 10/12/19 10/15/19 10/15/19 19:42 05:26 05:26 WBC 4.72 L RBC 3.48 L Hgb 10.5 L Hct 31.1 L MCV 89.4 MCH 30.2 MCHC 33.8 RDW Std Deviation 44.5 RDW Coeff of Dutch 13.6 Plt Count 179 MPV 9.4 Immature Gran % (Auto) 0.0 Neut % (Auto) 70.0 Lymph % (Auto) 23.9 [place] % (Auto) 3.6 Eos % (Auto) 1.7 Baso % (Auto) 0.8 Immature Gran # (Auto) 0.00 Neut # (Auto) 3.30 Lymph # (Auto) 1.13 L [place] # (Auto) 0.17 Eos # (Auto) 0.08 Baso # (Auto) 0.04 Sodium 138 Potassium 4.0 D Chloride 114 H Carbon Dioxide 21 Anion Gap 3.0 BUN 10 Creatinine 0.50 L Est Cr Clr Drug Dosing 127.8 Est GFR ( Amer) 148.4 Est GFR (Non-Af Amer) 128.1 BUN/Creatinine Ratio 20.7 H Glucose 71 Calcium 7.9 L Vancomycin Trough Herpes Virus Source CSF HSV I DNA PCR Not Detected HSV II DNA PCR Not Detected 10/15/19 05:26 WBC RBC Hgb Hct MCV MCH MCHC RDW Std Deviation RDW Coeff of Dutch Plt Count MPV Immature Gran % (Auto) Neut % (Auto) Lymph % (Auto) [place] % (Auto) Eos % (Auto) Baso % (Auto) Immature Gran # (Auto) Neut # (Auto) Lymph # (Auto) [place] # (Auto) Eos # (Auto) Baso # (Auto) Sodium Potassium Chloride Carbon Dioxide Anion Gap BUN Creatinine Est Cr Clr Drug Dosing Est GFR ( Amer) Est GFR (Non-Af Amer) BUN/Creatinine Ratio Glucose Calcium Vancomycin Trough 18.3 Herpes Virus Source HSV I DNA PCR HSV II DNA PCR
[2019-10-15 21:13] LABS: Herpes Virus 6 (DNA) Not Detected (Not Detected); Herpes Virus 6 (DNA) Source CSF
[2019-10-16] MEDS: ACETAMINOPHEN 325 MG TAB PO PRN (04:18)
[2019-10-16 06:59] LABS: Basophils # (auto) 0.05 K/uL (0-0.2); Basophils % (auto) 0.9 %; Eosinophils # (auto) 0.13 K/uL (0-0.5); Eosinophils % (auto) 2.3 %; Hematocrit (blood only) 32.3 % (37-47); Hemoglobin 10.8 g/dL (12.0-16.0); Immature Granulocytes # (auto) 0.02 K/uL (0.00-0.02); Immature Granulocytes % (auto) 0.4 %; Lymphocytes % (auto) 41.4 %; Mean Corpuscular Hemoglobin 30.1 pg (25-34); Mean Corpuscular Hgb Conc 33.4 g/dL (32-36); Mean Platelet Volume 9.1 fL (7.4-10.4); Neutrophils # (auto) 2.56 K/uL (1.4-6.5); Platelet Count 196 K/uL (130-400); RDW Coefficient of Variation 13.6 % (11.5-14.5); Red Blood Count 3.59 M/uL (4.2-5.4); White Blood Count 5.56 K/uL (4.8-10.8)
[2019-10-16 07:35] LABS: Calcium 8.3 mg/dl (8.5-10.1); Est GFR (African American) 138.3; Est GFR (Non-African American) 119.3; Potassium 3.5 mmol/L (3.5-5.1)
[2019-10-16] MEDS: AMOXICILLIN/CLAVULANATE 875 MG TAB PO SCH (08:28)
[2019-10-16] MEDS: LACTOBACILLUS ACIDOPHILUS (FLORANEX) TAB PO SCH ×2 (08:28→11:41)
--- NOTE | 2019-10-16 14:40 | Hospitalist Progress Note ---
Date of Service October 16, 2019 Assessment & Plan (1) Sepsis: (1) Sepsis secondary to Group B strep bacteremia per Admitting service notes: -Patient presenting from home with reports of low back pain, right hip pain, fever and rigors -Influenza negative, CXR clear, UA does not suggest infection -No signs of infection involving right hip and lumbar spine on CT scan - started on Vancomycin and Zosyn blood cultures: Group B strep x 2 bottles repeat blood cultures: Negative so far - s/p Lumbar tap: CSF analysis: negative for meningitis CSF fluid culture: negative - ID consulted recommend echo--> (+) focal thickening anterior mitral valve with borderline posterior mitral valve leaflet prolapse KATIE recommended, Imaging Nurse consulted: KATIE negative for endocarditis - fever resolved, patient significantly improved -Transition to p.o. Augmentin twice a day to complete 14 days treatment (2) Thickened endometrium: (3) Ovarian mass -CT ABD/pelvis showing a 6.6 x 6.1 cm mass within the right ovary demonstrating fat, calcification, and fluid consistent with an ovarian dermoid and heterogeneous and thickened appearance to the endometrium which extends into the wall of the uterine fundus which could represent an endometrial mass or focal adenomyoma. -Pelvic ultrasound: 1. The endometrium is thickened measuring up to 1.6 cm. 2. A 7.2 cm right adnexal mass is consistent with a dermoid when correlated with yesterday's pelvic CT. 3. Trace free fluid in the cul-de-sac is nonspecific and likely within physiologic limits. -REVIEWER SALES consulted: Discussed with Dr. Leiva, findings unlikely contributing to bacteremia, but will need outpatient close follow-up -No vaginal bleeding case discussed with patient and her in detail and at length all questions answered they are understanding, agreeable, and comfortable with the plan of care discharge to home ff up with PCP in 1 week (will call scheduling office to call patient re: appt date) ff up with Measurement Analyst in 2 weeks Subjective Follow-up for group B strep bacteremia Seen resting in bed, comfortable, not in distress States she feels improved overall Denies chest pain, shortness of breath Has mild headache but improving, no abdominal pain or back pain Appetite improving Denies other symptoms States that she is ready and would like to be discharged today Review of Systems Review of Systems: All systems reviewed & are unremarkable except as noted in HPI & below Physical Exam Physical Exam: General- oriented x 3, not in distress, speaks in sentences with no effort or accessory muscle use Eyes- anicteric Neck- no JVD Lungs- clear breath sounds, no crackles, no wheezing bilaterally Heart- normal rate, regular rhythm; no murmurs Abdomen- normal bowel sounds, no distention, soft, no tenderness Extremities- no pretibial edema, no calf tenderness Neuro- alert, oriented x 3; no gross focal neurologic deficits Skin- warm & dry Results & Data ([facility]) Vital Signs (Past 12 Hours) Vital Signs Temp Pulse Pulse Resp BP Pulse Ox 10/16/19 12:20 36.6 C 10/16/19 12:00 37.2 C 74 20 101/79 97 10/16/19 07:07 37.2 C 71 19 94/56 L 98 10/16/19 04:00 37.1 C 80 14 110/51 L 96 Laboratory Results Laboratory Results - last 24 hr 10/12/19 10/12/19 10/16/19 18:41 19:42 06:38 WBC RBC Hgb Hct MCV MCH MCHC RDW Std Deviation RDW Coeff of Dutch Plt Count MPV Immature Gran % (Auto) Neut % (Auto) Lymph % (Auto) [place] % (Auto) Eos % (Auto) Baso % (Auto) Immature Gran # (Auto) Neut # (Auto) Lymph # (Auto) [place] # (Auto) Eos # (Auto) Baso # (Auto) Sodium 141 Potassium 3.5 Chloride 112 H Carbon Dioxide 24 Anion Gap 5.0 BUN 9 Creatinine 0.62 Est Cr Clr Drug Dosing 103.0 Est GFR ( Amer) 138.3 Est GFR (Non-Af Amer) 119.3 BUN/Creatinine Ratio 15.0 Glucose 80 Calcium 8.3 L A. phagocytophilum DNA Not Detected Herpesvirus 6 Source CSF HHV-6 DNA (PCR) Not Detected 10/16/19 06:38 WBC 5.56 RBC 3.59 L Hgb 10.8 L Hct 32.3 L MCV 90.0 MCH 30.1 MCHC 33.4 RDW Std Deviation 45.0 RDW Coeff of Dutch 13.6 Plt Count 196 MPV 9.1 Immature Gran % (Auto) 0.4 Neut % (Auto) 46.0 Lymph % (Auto) 41.4 [place] % (Auto) 9.0 Eos % (Auto) 2.3 Baso % (Auto) 0.9 Immature Gran # (Auto) 0.02 Neut # (Auto) 2.56 Lymph # (Auto) 2.30 [place] # (Auto) 0.50 Eos # (Auto) 0.13 Baso # (Auto) 0.05 Sodium Potassium Chloride Carbon Dioxide Anion Gap BUN Creatinine Est Cr Clr Drug Dosing Est GFR ( Amer) Est GFR (Non-Af Amer) BUN/Creatinine Ratio Glucose Calcium A. phagocytophilum DNA Herpesvirus 6 Source HHV-6 DNA (PCR)
--- NOTE | 2019-10-16 19:00 | Discharge Summary ---
Date of Service October 16, 2019 Admission HPI Per Admitting Provider 34 year old female who presents to the ED for evaluation of fever and rigors. Patient reports that over the past year she has been having intermittent right hip pain. Recently, pain has become more consistent. Patient has been trying stretches and taking ibuprofen twice daily at home. Yesterday, patient reports she developed low back pain which was new for her. Pain did not resolve with the ibuprofen. This morning patient reports she woke up with "a weird feeling" in her legs. She then some how ended up on he floor and said she was shaking, felt nauseous, and had a fever. EMS was called and patient was brought to the ED for further evaluation. Patient reports her children were sick with a GI illness recently. She had some nausea but denies any vomiting or diarrhea. No abdominal pain. She denies chest pain, shortness of breath. No lightheadedness, dizziness, diaphoresis, and syncopal events. She denies urinary symptoms. In the ED, patient was febrile at 39.4, tachycardic HR 130s. Mild leukopenia WBC 4.05K. K+ 3.3, Mg+ 1.6. Flu negative, CXR clear, U/A does not suggest infection. Patient was given Tylenol, IV Rocephin, IV Mg+, IVF. Admission Exam Per Admitting Provider General: Well nourished, well hydrated, average body habitus, no acute distress and not ill appearing Eyes: PERRL, conjunctivae normal, not pale, anicteric sclerae, EOM intact bilaterally ENMT: External ear and nose normal, oropharynx normal Neck: Normal visual inspection, no tracheal deviation, no swelling noted Respiratory: Normal respiratory effort, no respiratory distress, lungs clear to auscultation, no crackles and no wheezes Cardiovascular: Pulse is RRR. S1 S2; no murmurs. Vessels: normal peripheral pulses Extremities: no pedal edema Chest (Breasts): Chest: normal inspection of chest Gastrointestinal (Abdomen): Abdomen is not distended, soft, non-tender to palpation, no guarding, no palpable hepatosplenomegaly, normal bowel sounds Musculoskeletal: No cyanosis or clubbing, No back tenderness, all extremities motor strength 5/5 Genitourinary: No CVA tenderness Skin: No rash noted on gross inspection, No ulcers noted Neurologic: Alert and oriented x 3, No focal weakness, sensation grossly intact Psychiatric: Euthymic affect, normal judgement Lymphatic: No cervical and inguinal lymphadenopathy Principal Diagnosis Sepsis Secondary to Group G Streptococcus Bacteremia Discharge Exam General- oriented x 3, not in distress, speaks in sentences with no effort or accessory muscle use Eyes- anicteric Neck- no JVD Lungs- clear breath sounds, no crackles, no wheezing bilaterally Heart- normal rate, regular rhythm; no murmurs Abdomen- normal bowel sounds, no distention, soft, no tenderness Extremities- no pretibial edema, no calf tenderness Neuro- alert, oriented x 3; no gross focal neurologic deficits Skin- warm & dry Discharge Data Allergies Allergy/AdvReac Type Severity Reaction Status Date / Time lactose Allergy Intermediate GI SYMPTOMS Verified 10/12/19 10:59 Consultations 10/12/19 15:31 Consult Gynecology Routine 10/12/19 20:13 Consult Infectious Diseases Routine 10/13/19 07:43 Consult Infectious Diseases Routine 10/13/19 14:03 Consult Cardiology Routine Procedures Performed Operation Date: 10/14/19 09:30 Actual Procedures p Echo Transesophageal - Dimas Mejias DO s Echo Doppler Complete - Dimas Mejias DO s Echo Color Flow - Dimas Mejias DO Ordered Studies 10/12/19 12:20 CT abd pelvis IV con only Routine FINDINGS: Mild interstitial thickening at the lung bases. There is a 4 mm subpleural nodule within the left lower lobe on image 41 and a 4 mm subpleural nodule within the right lower lobe on image 11. No pneumoperitoneum. No pneumatosis. No suspicious lytic or blastic osseous lesions. Periportal edema. This could be due to overhydration. There are no hepatic or splenic masses. The adrenal glands, pancreas, gallbladder, and kidneys are unremarkable. No hydronephrosis. No retroperitoneal lymphadenopathy. The bladder is unremarkable. Heterogeneous and thickened appearance to the endometrium which extends into the wall of the uterine fundus. This could represent an endometrial mass or focal adenomyoma. Corpus luteum within the normal left ovary. There is a 6.6 x 6.1 cm mass within the right ovary demonstrating fat, calcification, and fluid. This is consistent with an ovarian dermoid. There is an additional 2.3 cm right ovarian cyst on image 308. The appendix is partially visualized and appears unremarkable. No bowel wall thickening or obstruction. Moderate stool within the colon. IMPRESSION: 1. There is a 6.6 x 6.1 cm mass within the right ovary demonstrating fat, calcification, and fluid. This is consistent with an ovarian dermoid. 2. Heterogeneous and thickened appearance to the endometrium which extends into the wall of the uterine fundus. This could represent an endometrial mass or focal adenomyoma. Follow-up pelvic ultrasound is recommended as well as gynecologic consultation. 3. No bowel wall thickening or obstruction. 4. Normal appendix. 5. Mild interstitial thickening at the lung bases. This is nonspecific and could represent mild congestive change given the periportal edema. 6. There are 2 subpleural 4 mm nodules within the lung bases. These are considered low suspicion given the patient's age. 10/12/19 12:27 CT hip RT w con Routine FINDINGS: Please note that the CT of the abdomen and pelvis will be reported separately. A right ovarian dermoid is better depicted on that exam. No acute fracture or osseous lesion within the right hip is noted. Right hip joint space is preserved. There is no CT evidence for a joint effusion. There is no evidence for avascular necrosis. There is no right inguinal lymphadenopathy. No mass or fluid collection adjacent to the right hip is noted. IMPRESSION: 1. Unremarkable CT of the right hip. 2. Right ovarian dermoid, depicted on the CT of the abdomen and pelvis. Please see that report for further description. CT lumbar spine w con Routine FINDINGS: No fractures. No subluxation. Paraspinal soft tissues are unremarkable. No significant central canal or neural foraminal narrowing. Paraspinal soft tissues are unremarkable. IMPRESSION: No fractures within the lumbar spine. 10/12/19 18:21 CT head/brain wo con Stat IMPRESSION: No acute intracranial findings 10/12/19 18:37 FL lumbar puncture diagnostic Stat 10/13/19 15:31 US pelvic complete Routine US transvaginal Routine 1. The endometrium is thickened measuring up to 1.6 cm. 2. A 7.2 cm right adnexal mass is consistent with a dermoid when correlated with yesterday's pelvic CT. 3. Trace free fluid in the cul-de-sac is nonspecific and likely within physiologic limits. Hospital Course (1) Sepsis: (1) Sepsis secondary to Group B strep bacteremia per Admitting service notes: -Patient presenting from home with reports of low back pain, right hip pain, fever and rigors -Influenza negative, CXR clear, UA does not suggest infection -No signs of infection involving right hip and lumbar spine on CT scan - started on Vancomycin and Zosyn blood cultures: Group B strep x 2 bottles repeat blood cultures: Negative so far - s/p Lumbar tap: CSF analysis: negative for meningitis CSF fluid culture: negative - ID consulted, Group B strep bacteremia, possible Air Conditioning Unit Tester source recommend echo--> (+) focal thickening anterior mitral valve with borderline posterior mitral valve leaflet prolapse KATIE recommended, Home Care Companion consulted: KATIE negative for endocarditis - fever resolved, patient significantly improved - final diagnosis: Sepsis secondary to Group B strep bacteremia, Possible Air Conditioning Unit Tester Source -Transition to p.o. Augmentin twice a day to complete 14 days treatment ff up with PCP in 1 week (2) Thickened endometrium: (3) Ovarian mass -CT ABD/pelvis showing a 6.6 x 6.1 cm mass within the right ovary demonstrating fat, calcification, and fluid consistent with an ovarian dermoid and heterogeneous and thickened appearance to the endometrium which extends into the wall of the uterine fundus which could represent an endometrial mass or focal adenomyoma. -Pelvic ultrasound: 1. The endometrium is thickened measuring up to 1.6 cm. 2. A 7.2 cm right adnexal mass is consistent with a dermoid when correlated with yesterday's pelvic CT. 3. Trace free fluid in the cul-de-sac is nonspecific and likely within physiologic limits. -Air Conditioning Unit Tester consulted: Discussed with Dr. Leiva, findings unlikely contributing to bacteremia, but will need outpatient close follow-up -No vaginal bleeding case discussed with patient and her in detail and at length all questions answered they are understanding, agreeable, and comfortable with the plan of care discharge to home ff up with PCP in 1 week (will call scheduling office to call patient re: appt date) ff up with Air Conditioning Unit Tester in 2 weeks Total Time Total Time Spent Total Time Spent (In Minutes): 45 minutes Discharge Plan Discharge Items Patient Disposition: Home - Self-Care Reason For Visit: VIRAL ILLNESS Discharge Diagnosis: GROUP B STREPTOCOCCUS BACTEREMIA Activity: As commented below Activity Comment: RESUME ACTIVITY GRADUALLY TOLERATED Lifting: Wait until after follow-up appointment Exercise/Sports: Wait until after follow-up appointment Driving/Machine Use: NO DRIVING UNTIL RE-EVALUATED BY PRIMARY CARE PHYSICIAN Non-emergency contact: Primary Care Provider Call non-emergency contact if: you have any medication questions Follow-up/Referrals: Ruchi Caro, DO [Primary Care Provider] - (Dr. Jean October 18 @ 12:45pm.) Luther Watson MD [Physician] - Diet: Regular Addtl Attending Provider Instructions: YOUR NEW MEDICATION IS AUGMENTIN TWICE A DAY- ANTIBIOTIC FOR THE BLOOD STREAM INFECTION. DRINK PLENTY OF FLUIDS. WALK AROUND AT HOME. LIGHT CHORES ARE FINE. TAKE PROBIOTICS FOR AT LEAST 1 MONTH. RETURN TO THE ER IMMEDIATELY IF WITH RECURRENCE OF SYMPTOMS, FEVER/CHILLS, WEAKNESS, NAUSEA/VOMITING. CALL YOUR DOCTOR IMMEDIATELY IF YOU ARE HAVING DIARRHEA. PLEASE FOLLOW UP WITH PRIMARY CARE PHYSICIAN THIS COMING WEEK. THE CLINIC WILL BE CALLING YOU FOR AN APPOINTMENT. PLEASE FOLLOW UP WITH DR. WATSON- COMMUNITY LIAISON OFFICER IN 2 WEEKS. PLEASE CALL HIS OFFICE FOR AN APPOINTMENT. CONTACT INFORMATION NOTED ABOVE. Pending Studies at Discharge: No Stand-Alone Forms: [facility] Medications and DC Order Prescriptions: New amoxicillin-pot clavulanate [Augmentin] 875-125 mg Tablet 1 tab PO BIDM Qty: 25 RF: 0 Continued ibuprofen 200 mg Tablet 400 mg PO Q6H PRN (Reason: Pain) RF: 0 omega 2-alr-bfn-fish oil [Fish Oil] 1,000 mg (120 mg-180 mg) Capsule 3 cap PO DAILY RF: 0 Discharge Orders: Discharge Order (Routine); Ordered 10/16/19 Ordered By: Yeyo Nails/Other Patient Handouts: Amoxicillin Trihydrate Oral tablet Admission Data Admit Date/Time: 10/12/19 12:06 Attending Provider: Yeyo Calle Admit Provider: Rafia Beard I. Primary Care Provider: Ruchi Caro Other Providers: Luther Watson ; Angela Irvin ; Rafia Beard I. ; Dimas Mejias Other Interventions: Discharge Summary Assessment (RN) Last Done: 10/16/19 14:42 DC Date/Time DO NOT enter until pt leaves facility: 10/16/19 15:09
[2019-10-20] MEDS ORDERED: VANCOMYCIN TROUGH ONE (13:30)
== END 2019-10-16 15:09 | disposition home or self-care (01) | DRG 872 ==
LOC: ED 09:19 → SUATTDRO 12:06 → 2N 12:06 → 2E 18:11

== ENCOUNTER 2020-03-23 16:18 | Observation (INO) ==
--- NOTE | 2020-03-23 16:49 | XRay Report ---
XR chest 1V portable HISTORY: 34 years-old Female SEPSIS acute sepsis COMPARISON: Chest radiograph 11/02/2019 TECHNIQUE: Portable AP view of the chest FINDINGS: Cardiomediastinal and hilar silhouettes are within normal limits. No pneumothorax, pleural effusion, airspace consolidation or overt pulmonary edema. Bones of the chest appear grossly intact. IMPRESSION: No acute process. ACT 112: Negative or not required by law. The above report was generated using voice recognition software. It may contain grammatical, syntax o r spelling errors. Electronically signed by: Jim Deleon M.D. 03/23/2020 4:48 PM
[2020-03-23] MEDS: SODIUM CHLORIDE 0.9% 1000ML 1,000 ML IV SCH ×2 (17:10→23:21)
[2020-03-23 17:18] LABS: Basophils # (auto) 0.07 K/uL (0-0.2); Eosinophils # (auto) 0.04 K/uL (0-0.5); Eosinophils % (auto) 0.6 %; Hematocrit (blood only) 32.7 % (37-47); Hemoglobin 10.5 g/dL (12.0-16.0); Lymphocytes # (auto) 1.63 K/uL (1.2-3.4); Lymphocytes % (auto) 24.3 %; Mean Corpuscular Hemoglobin 28.9 pg (25-34); Mean Corpuscular Hgb Conc 32.1 g/dL (32-36); Mean Corpuscular Volume 90.1 fL (80-100); Mean Platelet Volume 8.6 fL (7.4-10.4); Monocytes # (auto) 0.27 K/uL (0.11-0.59); Neutrophils # (auto) 4.71 K/uL (1.4-6.5); Neutrophils % (auto) 70.1 %; Platelet Count 366 K/uL (130-400); RDW Coefficient of Variation 13.9 % (11.5-14.5); RDW Standard Deviation 46.3 fL (36.4-46.3); Red Blood Count 3.63 M/uL (4.2-5.4); White Blood Count 6.72 K/uL (4.8-10.8)
[2020-03-23 17:21] LABS: Appearance Urine Clear (Clear); Bacteria Urine Automated Negative (Negative); Bilirubin Urine Negative (Negative); Blood Urine Trace (Negative); Cast Urine Automated 0 /lpf (0-5); Color Urine Yellow; Epithelial Cell Urine Auto 20-30 /lpf (0-5); Glucose Urine UA Negative (Negative); Ketones Urine Negative (Negative); Leukocyte Esterase Urine Negative (Negative); Nitrite Urine Negative (Negative); Protein Urine Negative (Negative); Specific Gravity Urine 1.011 (1.000-1.030); Urobilinogen Urine Negative (Negative); pH Urine 6.5 (4.5-7.5)
[2020-03-23 17:30] LABS: Partial Thromboplastin Time 27.2 Seconds (21.0-31.0); Prothrombin Time 10.7 Seconds (9.0-12.0)
[2020-03-23 17:39] LABS: Alanine Aminotransferase 21 U/L (12-78); Albumin Level 3.7 gm/dl (3.4-5.0); Aspartate Aminotransferase 12 U/L (15-37); BUN Creatinine Ratio 21.7 (10-20); Blood Urea Nitrogen 15 mg/dl (7-18); C Reactive Protein < 0.29 mg/dl (0-0.29); Calcium 8.2 mg/dl (8.5-10.1); Carbon Dioxide 23 mmol/L (21-32); Chloride 112 mmol/L (98-107); Creatinine Clr Calc Pharmacy 95.3 ml/min; Est GFR (African American) 134.8; Est GFR (Non-African American) 116.3; Glucose 98 mg/dl (70-99); Potassium 3.8 mmol/L (3.5-5.1); Sodium 140 mmol/L (136-145)
[2020-03-23 17:44] LABS: Albumin Globulin Ratio 1.2 (0.9-2); Alkaline Phosphatase 43 U/L (45-117); Bilirubin,Total 0.2 mg/dl (0.2-1); Globulin 3.2 gm/dl (2.5-4.0); Total Protein 6.9 gm/dl (6.4-8.2); Troponin I < 0.015 ng/ml (0-0.045)
--- NOTE | 2020-03-23 18:48 | Magnetic Resonance Report ---
MRI OF THE BRAIN WITHOUT IV CONTRAST CLINICAL HISTORY: Dizziness and weakness. Syncope. Change in mental status. COMPARISON STUDY: CT of the brain dated 10/12/2019. TECHNIQUE: MRI of the brain was performed utilizing various T1 and T2-weighted sequences in the axial , sagittal, and coronal planes. IV contrast was not administered for this examination. FINDINGS: Brain parenchyma: The brain parenchyma is normal in appearance. There is no hemorrhage or mass effect . There is no restricted diffusion to suggest acute ischemia. Mcdonnell-white matter differentiation is pr eserved. No extra-axial fluid collection is seen. The cerebellar tonsils are normal in configuration. Ventricles, sulci, and cisterns: Normal in configuration. Pituitary and sella: Unremarkable. Intracranial vasculature: Normal flow voids are maintained at the skull base. Orbits: The bony orbits are grossly intact. Orbital contents are normal in appearance. Sinuses and mastoids: There is mild mucosal thickening in the left frontal sinus. The remaining paran easton sinuses and mastoid air cells are clear. Calvarium: Unremarkable. Cervical cord: Partially visualized cervical spinal cord is normal in morphology and signal intensity . IMPRESSION: No acute intracranial abnormality. ACT 112: Negative or not required by law. Electronically signed by: Luisito Mcneal M.D. 03/23/2020 6:47 PM
--- NOTE | 2020-03-23 19:40 | Emergency Department Note ---
Impression & Plan Near syncope, Neck pain, Back pain, thoracic ED Provider Note NAME: KWAME SILVEIRA AGE: 34 SEX: F ARRIVES VIA: Ambulance INFORMANT: [Patient] ED PROVIDER(S): Aba Feliciano MD CHIEF COMPLAINT: Near syncope PLAN: Disposition: Admitted Condition: [Good] MEDICAL DECISION MAKING: Patient presented because near syncopal issues and dizziness. She had similar presentation 6 months ago and was found to have sepsis from strep bovis. I did discuss her issue with Dr. Mejias who evaluated her at the clinic. He was recommending admission for work-up. The patient presented to the ER here by EMS. She was feeling better at that point. Vital signs are stable. She was hydrated. Blood cultures performed. Laboratory testing performed. She had a mild anemia on CBC. No leukocytosis. Troponin, chemistry panel, and procalcitonin negative. Coags negative. CRP negative. The patient also noted that she was having periods of confusion. MR imaging of the brain was performed. I attempted to get MR imaging of the thoracic and cervical spine given her noting months of neck and upper back pain with a history of the strep bovis sepsis. She was not feeling well enough to complete the thoracic and cervical imaging at the time of the head imaging. This was temporarily delayed. I did consult with internal medicine. Dr. Singh evaluated patient in the ER for further management. Triage Nursing notes reviewed and agree them. [Additional history obtained from] Dr. Dimas Nogueira cardiology. Vital Signs: reviewed and remarkable for [no significant abnormalities] Differential diagnosis: Infection, dehydration, metabolic abnormality, hypo/hyperglycemia, electrolyte disturbance, anemia, hypoxia, cardiac sources, intracerebral event, toxicologic, neurologic, as well as other pathologies. ER treatment provided: Saline hydration Diagnostics interpreted by me: ECG: Rate: 86 Rhythm:Normal sinus [place]:Normal QRS:Normal ST segements:No elevation or depression Other:No PACs or PVCs Cardiac Monitoring: Cardiac monitoring ordered by me: The patient was placed on continuous cardiac monitoring and observed. It revealed a normal sinus rhythm at 89 beats per minute without ectopy or evidence of dysrhythmia. Laboratory studies: As above Imaging studies: [See below] MRI of the brain is negative. MRI of the cervical and thoracic spine pending. Consultation(s): Nia hospitalist HPI:The patient is a 34 year old female who presents to the Emergency Room with complaints of near syncope. This started this afternoon at the [facility] and is currently improved. The patient also notes the following associated symptoms, dizziness, confusion, feeling out of it. The patient has found no relieving factors. Current pain is rated as 0/10. Patient states she has been waking up every morning for the last several months with neck and upper back pain. In September of this year she was admitted because of a strep bovis sepsis. She was at GI today to discuss consultation for colonoscopy for further work-up. I did discuss this with Dr. Dimas Mejias who called the ER to notify us about the patient coming. He states that she did have a KATIE done that was negative. Pt denies LOC, headache, fevers, chills, diaphoresis, visual changes, chest pain, breathing difficulties, nausea, vomiting, abdominal pain, lower back pain, melena, hematochezia, urinary symptoms, numbness, weakness, lym phadenopathy, rash, or other complaints. ROS: See above HPI for pertinent positives & negatives. A total of [10] systems reviewed and were otherwise negative. PAST MEDICAL HISTORY:[See Below] strep bovis bacteremia PAST SURGICAL HISTORY:[See Below] FAMILY HISTORY:[See Below] SOCIAL HISTORY:[See Below] , lives with family HOME MEDICATIONS:[See Below] ALLERGIES:[See Below] VITALS:[See Below] PHYSICAL EXAMINATION: GENERAL: Awake, alert, well-appearing, in no distress HENT: Normocephalic, atraumatic. Oropharynx unremarkable. EYES: Normal conjunctiva. Sclera non-icteric. NECK: Inspection normal. Non-tender. Supple. No nuchal rigidity. FROM. No masses. RESPIRATORY: Clear to auscultation. No wheezes. No rales. Normal respiratory effort. CARDIAC: Normal rate. Normal rhythm. No murmurs. No rubs. Extremities warm and well perfused. Pulses equal. No JVD. GI: Soft, non-distended. No tenderness to palpation. No rebound or guarding. No masses. RECTAL: Deferred. MUSCULOSKELETAL: Atraumatic. Chest examination reveals no tenderness. The back is symmetrical on inspection without obvious abnormality. There is no CVA tenderness to palpation. No joint edema. LOWER EXTREMITIES: Calves are equal size bilaterally and non-tender. No edema. N o discoloration. NEURO: Normal sensorium. No sensory or motor deficits noted. SKIN: No rash or jaundice noted. 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 Beliefs That Will Affect Care: None marital status: Current Living Situation: Spouse Feels Safe at Home: Yes Smoking Status: Never smoker Hx Alcohol Use: Yes Alcohol type: wine Alcohol Intake Frequency: Rarely Hx Substance Use: No Allergies Allergies Allergy/AdvReac Type Severity Reaction Status Date / Time lactose Allergy Mild Gastrointestinal Verified 03/23/20 20:15 Upset Home Meds Home Medications Medication Instructions Recorded Confirmed Vitamin B/Zinc 1 dose PO DAILY 03/23/20 03/23/20 calcium carbonate-vitamin D3 1 cap PO DAILY 03/23/20 03/23/20 [Calcium 600 + D(3)] magnesium 0 mg PO DAILY 03/23/20 03/23/20 mometasone 2 spray INTRANASAL DAILY PRN 03/23/20 03/23/20 omega 6-jou-bux-fish oil [Fish Oil] 1 cap PO BID 03/23/20 03/23/20 Results & Data (ED) Vital Signs Vital Signs - 24 hr 03/23/20 16:30 03/23/20 16:31 03/23/20 16:42 Temperature 37.1 C Temperature Source Oral Pulse Rate 89 86 86 Pulse Rate from SpO2 Sensor 89 85 Pulse Rhythm Regular Pulse Strength Normal Respiratory Rate 20 20 18 Respiratory Effort / Characteristics Non-Labored Spontaneous Respiratory Depth Normal Respiratory Pattern Regular Blood Pressure 118/77 120/73 Blood Pressure Mean 84 88 Blood Pressure Position Lying Pulse Oximetry 99 100 99 Oxygen Delivery Method Room Air Room Air Room Air Sepsis Recent Fever Within 48 Hours No Sepsis New/Unexplained Change in Mental Status No Sepsis Action Taken by Nursing No Action Required 03/23/20 16:45 03/23/20 16:46 03/23/20 17:00 Temperature Temperature Source Pulse Rate 103 H 102 H 89 Pulse Rate from SpO2 Sensor 105 H 102 H 88 Pulse Rhythm Pulse Strength Respiratory Rate 18 19 22 Respiratory Effort / Characteristics Respiratory Depth Respiratory Pattern Blood Pressure 123/86 Blood Pressure Mean 97 Blood Pressure Position Pulse Oximetry 99 99 99 Oxygen Delivery Method Room Air Room Air Room Air Sepsis Recent Fever Within 48 Hours Sepsis New/Unexplained Change in Mental Status Sepsis Action Taken by Nursing 03/23/20 17:29 03/23/20 17:30 03/23/20 17:31 Temperature Temperature Source Pulse Rate 90 95 H 94 H Pulse Rate from SpO2 Sensor 91 H 96 H 96 H Pulse Rhythm Pulse Strength Respiratory Rate 21 22 24 Respiratory Effort / Characteristics Respiratory Depth Respiratory Pattern Blood Pressure 112/87 111/79 Blood Pressure Mean 93 96 Blood Pressure Position Pulse Oximetry 100 100 100 Oxygen Delivery Method Room Air Room Air Room Air Sepsis Recent Fever Within 48 Hours Sepsis New/Unexplained Change in Mental Status Sepsis Action Taken by Nursing 03/23/20 17:45 03/23/20 19:00 03/23/20 19:04 Temperature Temperature Source Pulse Rate 89 Pulse Rate from SpO2 Sensor 88 98 H Pulse Rhythm Pulse Strength Respiratory Rate 15 Respiratory Effort / Characteristics Respiratory Depth Respiratory Pattern Blood Pressure 117/72 Blood Pressure Mean 92 Blood Pressure Position Pulse Oximetry 99 98 98 Oxygen Delivery Method Room Air Room Air Sepsis Recent Fever Within 48 Hours Sepsis New/Unexplained Change in Mental Status Sepsis Action Taken by Nursing 03/23/20 19:30 03/23/20 20:00 03/23/20 20:30 Temperature Temperature Source Pulse Rate 87 94 H 89 Pulse Rate from SpO2 Sensor 88 93 H 89 Pulse Rhythm Pulse Strength Respiratory Rate 15 16 18 Respiratory Effort / Characteristics Respiratory Depth Respiratory Pattern Blood Pressure 117/71 109/67 121/76 Blood Pressure Mean 81 78 95 Blood Pressure Position Pulse Oximetry 99 99 98 Oxygen Delivery Method Sepsis Recent Fever Within 48 Hours Sepsis New/Unexplained Change in Mental Status Sepsis Action Taken by Nursing Laboratory Data Result diagrams: 03/23/20 17:04 03/23/20 17:04 Lab Results 03/23/20 03/23/20 03/23/20 Range/Units 16:34 16:58 17:04 WBC 6.72 (4.8-10.8) K/uL RBC 3.63 L (4.2-5.4) M/uL Hgb 10.5 L (12.0-16.0) g/dL Hct 32.7 L (37-47) % MCV 90.1 (80-100) fL MCH 28.9 (25-34) pg MCHC 32.1 (32-36) g/dL RDW Std Deviation 46.3 (36.4-46.3) fL RDW Coeff of Dutch 13.9 (11.5-14.5) % Plt Count 366 (130-400) K/uL MPV 8.6 (7.4-10.4) fL Immature Gran % (Auto) 0.0 % Neut % (Auto) 70.1 % Lymph % (Auto) 24.3 % Norton % (Auto) 4.0 % Eos % (Auto) 0.6 % Baso % (Auto) 1.0 % Neut # (Auto) 4.71 (1.4-6.5) K/uL Lymph # (Auto) 1.63 (1.2-3.4) K/uL Norton # (Auto) 0.27 (0.11-0.59) K/uL Eos # (Auto) 0.04 (0-0.5) K/uL Baso # (Auto) 0.07 (0-0.2) K/uL Immature Gran # (Auto) 0.00 (0.00-0.02) K/uL ESR (0-21) mm/hr PT (9.0-12.0) Seconds INR (0.9-1.1) APTT (21.0-31.0) Seconds PTT Ratio Sodium (136-145) mmol/L Potassium (3.5-5.1) mmol/L Chloride (98-107) mmol/L Carbon Dioxide (21-32) mmol/L Anion Gap (3-11) BUN (7-18) mg/dl Creatinine (0.6-1.2) mg/dl Est Cr Clr Drug Dosing ml/min Est GFR ( Amer) Est GFR (Non-Af Amer) BUN/Creatinine Ratio (10-20) Glucose (70-99) mg/dl POC Glucose 105 H (70-99) mg/dl Lactate (0.4-2.0) mmol/L Calcium (8.5-10.1) mg/dl Magnesium (1.8-2.4) mg/dl Total Bilirubin (0.2-1) mg/dl AST (15-37) U/L ALT (12-78) U/L Alkaline Phosphatase (45-117) U/L Troponin I (0-0.045) ng/ml C-Reactive Protein (0-0.29) mg/dl Total Protein (6.4-8.2) gm/dl Albumin (3.4-5.0) gm/dl Globulin (2.5-4.0) gm/dl Albumin/Globulin Ratio (0.9-2) Procalcitonin (0-0.5) ng/ml Urine Color Yellow Urine Appearance Clear (Clear) Urine pH 6.5 (4.5-7.5) Ur Specific [place] 1.011 (1.000-1.030) Urine Protein Negative (Negative) Urine Glucose (UA) Negative (Negative) Urine Ketones Negative (Negative) Urine Blood Trace H (Negative) Urine Nitrite Negative (Negative) Urine Bilirubin Negative (Negative) Urine Urobilinogen Negative (Negative) Ur Leukocyte Esterase Negative (Negative) Urine WBC (Auto) 1-5 (0-5) /hpf Urine RBC (Auto) 5-10 H (0-4) /hpf U Hyaline Cast (Auto) 0 (0-5) /lpf U Epithel Cells (Auto) 20-30 H (0-5) /lpf Urine Bacteria (Auto) Negative (Negative) 03/23/20 03/23/20 03/23/20 Range/Units 17:04 17:04 17:04 WBC (4.8-10.8) K/uL RBC (4.2-5.4) M/uL Hgb (12.0-16.0) g/dL Hct (37-47) % MCV (80-100) fL MCH (25-34) pg MCHC (32-36) g/dL RDW Std Deviation (36.4-46.3) fL RDW Coeff of Dutch (11.5-14.5) % Plt Count (130-400) K/uL MPV (7.4-10.4) fL Immature Gran % (Auto) % Neut % (Auto) % Lymph % (Auto) % Norton % (Auto) % Eos % (Auto) % Baso % (Auto) % Neut # (Auto) (1.4-6.5) K/uL Lymph # (Auto) (1.2-3.4) K/uL Norton # (Auto) (0.11-0.59) K/uL Eos # (Auto) (0-0.5) K/uL Baso # (Auto) (0-0.2) K/uL Immature Gran # (Auto) (0.00-0.02) K/uL ESR 7 (0-21) mm/hr PT 10.7 (9.0-12.0) Seconds INR 1.0 (0.9-1.1) APTT 27.2 (21.0-31.0) Seconds PTT Ratio 1.0 Sodium 140 (136-145) mmol/L Potassium 3.8 (3.5-5.1) mmol/L Chloride 112 H (98-107) mmol/L Carbon Dioxide 23 (21-32) mmol/L Anion Gap 5.0 (3-11) BUN 15 (7-18) mg/dl Creatinine 0.67 (0.6-1.2) mg/dl Est Cr Clr Drug Dosing 95.3 ml/min Est GFR ( Amer) 134.8 Est GFR (Non-Af Amer) 116.3 BUN/Creatinine Ratio 21.7 H (10-20) Glucose 98 (70-99) mg/dl POC Glucose (70-99) mg/dl Lactate (0.4-2.0) mmol/L Calcium 8.2 L (8.5-10.1) mg/dl Magnesium 2.0 (1.8-2.4) mg/dl Total Bilirubin 0.2 (0.2-1) mg/dl AST 12 L (15-37) U/L ALT 21 (12-78) U/L Alkaline Phosphatase 43 L (45-117) U/L Troponin I < 0.015 (0-0.045) ng/ml C-Reactive Protein < 0.29 (0-0.29) mg/dl Total Protein 6.9 (6.4-8.2) gm/dl Albumin 3.7 (3.4-5.0) gm/dl Globulin 3.2 (2.5-4.0) gm/dl Albumin/Globulin Ratio 1.2 (0.9-2) Procalcitonin (0-0.5) ng/ml Urine Color Urine Appearance (Clear) Urine pH (4.5-7.5) Ur Specific [place] (1.000-1.030) Urine Protein (Negative) Urine Glucose (UA) (Negative) Urine Ketones (Negative) Urine Blood (Negative) Urine Nitrite (Negative) Urine Bilirubin (Negative) Urine Urobilinogen (Negative) Ur Leukocyte Esterase (Negative) Urine WBC (Auto) (0-5) /hpf Urine RBC (Auto) (0-4) /hpf U Hyaline Cast (Auto) (0-5) /lpf U Epithel Cells (Auto) (0-5) /lpf Urine Bacteria (Auto) (Negative) 03/23/20 03/23/20 Range/Units 17:04 17:04 WBC (4.8-10.8) K/uL RBC (4.2-5.4) M/uL Hgb (12.0-16.0) g/dL Hct (37-47) % MCV (80-100) fL MCH (25-34) pg MCHC (32-36) g/dL RDW Std Deviation (36.4-46.3) fL RDW Coeff of Dutch (11.5-14.5) % Plt Count (130-400) K/uL MPV (7.4-10.4) fL Immature Gran % (Auto) % Neut % (Auto) % Lymph % (Auto) % Norton % (Auto) % Eos % (Auto) % Baso % (Auto) % Neut # (Auto) (1.4-6.5) K/uL Lymph # (Auto) (1.2-3.4) K/uL [place] # (Auto) (0.11-0.59) K/uL Eos # (Auto) (0-0.5) K/uL Baso # (Auto) (0-0.2) K/uL Immature Gran # (Auto) (0.00-0.02) K/uL ESR (0-21) mm/hr PT (9.0-12.0) Seconds INR (0.9-1.1) APTT (21.0-31.0) Seconds PTT Ratio Sodium (136-145) mmol/L Potassium (3.5-5.1) mmol/L Chloride (98-107) mmol/L Carbon Dioxide (21-32) mmol/L Anion Gap (3-11) BUN (7-18) mg/dl Creatinine (0.6-1.2) mg/dl Est Cr Clr Drug Dosing ml/min Est GFR ( Amer) Est GFR (Non-Af Amer) BUN/Creatinine Ratio (10-20) Glucose (70-99) mg/dl POC Glucose (70-99) mg/dl Lactate 1.2 (0.4-2.0) mmol/L Calcium (8.5-10.1) mg/dl Magnesium (1.8-2.4) mg/dl Total Bilirubin (0.2-1) mg/dl AST (15-37) U/L ALT (12-78) U/L Alkaline Phosphatase (45-117) U/L Troponin I (0-0.045) ng/ml C-Reactive Protein (0-0.29) mg/dl Total Protein (6.4-8.2) gm/dl Albumin (3.4-5.0) gm/dl Globulin (2.5-4.0) gm/dl Albumin/Globulin Ratio (0.9-2) Procalcitonin < 0.05 (0-0.5) ng/ml Urine Color Urine Appearance (Clear) Urine pH (4.5-7.5) Ur Specific [place] (1.000-1.030) Urine Protein (Negative) Urine Glucose (UA) (Negative) Urine Ketones (Negative) Urine Blood (Negative) Urine Nitrite (Negative) Urine Bilirubin (Negative) Urine Urobilinogen (Negative) Ur Leukocyte Esterase (Negative) Urine WBC (Auto) (0-5) /hpf Urine RBC (Auto) (0-4) /hpf U Hyaline Cast (Auto) (0-5) /lpf U Epithel Cells (Auto) (0-5) /lpf Urine Bacteria (Auto) (Negative) Administered Medications Gadobutrol (Gadavist 65ml) 5.5 ml IV ONCE PRN PRN Reason: Interaction Checking Stop: 03/27/20 21:52 Last Admin: 03/23/20 21:53 Dose: 5.5 ml Documented by: [id number] Sodium Chloride (Nss 1000ml) 1,000 mls @ 150 mls/hr IV .[id number] NADINE Stop: 04/22/20 16:29 Last Admin: 03/23/20 17:10 Dose: 150 mls/hr Documented by: [id number] Discharge Plan Visit Data Chief Complaint: Dizziness Stated Complaint: NEAR SYNCOPE, DIZZINESS ED Provider: Aba Feliciano Discharge Problem: Near syncope, Neck pain, Back pain, thoracic Forms Stand Alone Forms: [facility] [employer] Prescriptions Prescriptions: No Action mometasone 50 mcg/actuation spray,non-aerosol 2 spray INTRANASAL DAILY PRN (Reason: Nasal Congestion) RF: 0 magnesium 250 mg Tablet 0 mg PO DAILY RF: 0 Calcium 600 + D(3) 600 mg calcium- 200 unit Capsule 1 cap PO DAILY RF: 0 omega 4-lkh-aiy-fish oil [Fish Oil] 1,000 mg (120 mg-180 mg) Capsule 1 cap PO BID RF: 0 Vitamin B/Zinc 1 dose PO DAILY RF: 0
--- NOTE | 2020-03-23 20:43 | History & Physical Report ---
Date of Service March 23, 2020 Assessment & Plan (1) Lightheadedness: (2) Near syncope: This is a 34-year-old female with history of Group B strep bacteremia in September who presents from [facility] with dizziness and near syncope after rapid response was called. -Experienced episode of lightheadedness and nausea in clinic today with associated tachycardia and hypotension that resolved with fluids -Afebrile, no leukocytosis. Hemoglobin 10.5 (baseline 1011), CRP, lactic acid a nd procalcitonin all within normal limits -CXR without acute abnormalities. EKG with normal sinus rhythm -Brain MRI: No acute intracranial abnormality -Blood cultures collected, continue IV fluids, monitor overnight on telemetry (3) Neck pain: Musculoskeletal in nature. Worse in the morning after sleeping on stomach, improves during the day. Currently no neck pain to palpation, full active ROM, negative Brudzinski's sign -Unable to participate for cervical/thoracic MRI earlier due to lightheadedness/ near syncope. Will attempt to get during hospitalization -Consider LP if neck pain worsens or patient develops fever, headache DVT Ppx: Dane de la cruz Code status: FULL PCP: Gordo Dispo: Observation med tele. Plan to return home once medically stable. Patient seen in collaboration with Dr. Singh. Please see addendum. History of Present Illness Chief Complaint: Dizziness, near syncope Primary Care Provider: Ruchi Caro, DO This is a 34-year-old female with history of Group B strep bacteremia in September who presents from [facility] with dizziness and near syncope after rapid response was called. Patient has been feeling fatigued lately with some lightheadedness. Drove to [facility] today for GI appointment and while sitting in truck prior to entering the building, had episode of acute lightheadedness, nausea and near syncope. Walked into the building and once roomed, patient was slow to respond. Rapid response was called and patient was found to be tachycardic and hypotensive. Received IV fluids with resolution of symptoms but was encouraged to come to ED for further evaluation. Was admitted in late September of this year for strep bovis infection. KATIE and LP at the time were negative. Was referred to GI as OP for further workup to rule out colon cancer given the suspicious bacteria. Patient states she feels very similar today as to how she felt when she was initially diagnosed with bacteremia back in September. Currently, patient is feeling fatigued but otherwise normal. Endorses some chills and nausea as well. Denies any fever, headache, visual changes, lightheadedness, chest pain, shortness of breath, vomiting, abdominal pain or dysuria. Endorses intermittent diarrhea and constipation but believes she has IBS. Allergies Allergy/AdvReac Type Severity Reaction Status Date / Time lactose Allergy Mild Gastrointestinal Verified 03/23/20 20:15 Upset Home Medications Home Medications Medication Instructions Recorded Confirmed Type Vitamin B/Zinc 1 dose PO DAILY 03/23/20 03/23/20 History calcium carbonate-vitamin D3 1 cap PO DAILY 03/23/20 03/23/20 History [Calcium 600 + D(3)] magnesium 0 mg PO DAILY 03/23/20 03/23/20 History mometasone 2 spray INTRANASAL DAILY PRN 03/23/20 03/23/20 History omega 6-sne-zth-fish oil [Fish Oil] 1 cap PO BID 03/23/20 03/23/20 History Past Med/Surg History Medical History Dermoid cyst of right ovary Sepsis group b bacteremia in Sep 2019 Surgical History H/O wisdom tooth extraction Family History Father Hypertension Social History Preferred Language: Lithuanian Communication Ability: Effective Rn Tele Required: No Beliefs That Will Affect Care: None marital status: Current Living Situation: Spouse Feels Safe at Home: Yes Smoking Status: Never smoker Hx Alcohol Use: No Hx Substance Use: No Review of Systems Review of Systems: At least ten systems reviewed and negative except as noted in the HPI. Physical Exam Physical Exam: General Appearance: WD/WN, vitals as above, NAD, sitting up in bed, pleasant, conversing easily Head: normocephalic, atraumatic Eyes: normal inspection, PERRL, conjunctivae normal, anicteric sclerae ENT: external ear and nose normal, oropharynx normal Neck: trachea midline, no thyromegaly, normal visual inspection, no pain to palpation, full active ROM, negative Brudzinski's sign Respiratory: normal respiratory effort, lungs clear to auscultation, no wheeze, rales, rhonchi. Normal insp/exp effort, no accessory muscle use Cardiovascular: regular rate, rhythm, no murmur, normal peripheral pulses Chest: normal inspection of chest Abdomen/GI: normal bowel sounds, soft, nontender, no hepatosplenomegaly Extremities/Musculoskeletal: no cyanosis or clubbing, extremities motor strength 5/5 Neurologic: PERRL, EOMI, accommodation nl, no face palsy, no dysarthria, CN's II-XI intact bilaterally and moves all extremities Psychiatric: A+Ox3, + anxious Skin: no rashes, normal color, warm/dry Results & Data Results & Data ([facility]) Vital Signs (Past 12 Hours) Vital Signs Temp Pulse Resp BP Pulse Ox 03/23/20 19:04 98 03/23/20 19:00 117/72 98 03/23/20 17:45 89 15 99 03/23/20 17:31 94 H 24 100 03/23/20 17:30 95 H 22 111/79 100 03/23/20 17:29 90 21 112/87 100 03/23/20 17:00 89 22 99 03/23/20 16:46 102 H 19 123/86 99 03/23/20 16:45 103 H 18 99 03/23/20 16:42 86 18 99 03/23/20 16:31 37.1 C 86 20 120/73 100 03/23/20 16:30 89 20 118/77 99 Laboratory Results Short CBC 03/23/20 Range/Units 17:04 WBC 6.72 (4.8-10.8) K/uL Hgb 10.5 L (12.0-16.0) g/dL Hct 32.7 L (37-47) % Plt Count 366 (130-400) K/uL BMP 03/23/20 17:04 Sodium 140 Potassium 3.8 Chloride 112 H Carbon Dioxide 23 BUN 15 Creatinine 0.67 Glucose 98 Calcium 8.2 L Cardiac Enzymes 03/23/20 Range/Units 17:04 Troponin I < 0.015 (0-0.045) ng/ml Liver Function 03/23/20 Range/Units 17:04 Total Bilirubin 0.2 (0.2-1) mg/dl AST 12 L (15-37) U/L ALT 21 (12-78) U/L Alkaline Phosphatase 43 L (45-117) U/L Albumin 3.7 (3.4-5.0) gm/dl Urine 03/23/20 Range/Units 16:34 Urine Color Yellow Urine Appearance Clear (Clear) Urine pH 6.5 (4.5-7.5) Ur Specific [place] 1.011 (1.000-1.030) Urine Protein Negative (Negative) Urine Glucose (UA) Negative (Negative) Diagnostic Findings Brain MRI: IMPRESSION: No acute intracranial abnormality. CXR: IMPRESSION: No acute process. ECG Rhythm: normal sinus Code Status & VTE Plan VTE Prophylaxis Plan VTE Prophylaxis will be ordered: Yes Supervising Physician Co-Signing Physician Notes Care coordinated with Milton Galvan PA-C. Agree with above note. Patient seen and examined. Please refer to her notes for full details. Vital signs reviewed. Physical exam: General exam: Alert and oriented. Not in acute distress. CVS: S1 and S2 heard, regular rate and rhythm, no murmurs. RS: Clear to auscultation, no wheezing or crackles. ABD: Soft, bowel sounds present, nontender, no distention. LONG TERM CARE ADMINISTRATOR: Nonfocal. EXT: No edema, no erythema. Labs: Reviewed. Assessment and plan: 34 f with hx of Group B strep bacteremia and at that time KATIE and LP were negative. Went to [facility] office for GI appointment for for plan for colonoscopy. At the office she was light headed and experienced near syncope. Rapid response was called. Was hypotensive and tachycardic. Improved with fluids. In The E MRI head and MRI cervical spine and thoracic spine were done which are unremarkable. Patient says since six months she has neck pain in the mornings. Santa feverish in the morning. Currently resting comfortably and hemodynamically stable. Denies any chest pain or so or nausea. No head aches or neck pain currently. Near syncope hypotensive and tachycardia resolved now imaging studies ok continue iv fluids continue to observe Hx of Group B strep bacteriemia in September treated with abx KATIE and L negative at that time follow repeat cx There was plan for egd/colonoscopy to find out the source of bacteremia Patient request to followup with GI while hospitalized. Other diagnosis and plan of care as per Tammy Cole, PA-Keri kerr MD.
[2020-03-23] MEDS ORDERED: GADOBUTROL 65ML VIAL IV PRN (21:53)
[2020-03-23] MEDS ORDERED: ACETAMINOPHEN 325 MG TAB PO PRN (23:10)
[2020-03-23] MEDS ORDERED: ONDANSETRON INJ 2 MG/ML 2 ML VIAL IV PRN (23:10)
[2020-03-23] MEDS ORDERED: POLYETHYLENE (MIRALAX) 17 GM PACK PO PRN (23:10)
[2020-03-23] MEDS ORDERED: FLUTICASONE PROPIONATE NA SPR 16 GM BTL PRN (23:16)
[2020-03-23] MEDS ORDERED: SODIUM CHLORIDE 0.9% 1000ML 1,000 ML IV SCH (23:45)
[2020-03-24 03:30] LABS: Pregnancy Test, Urine Negative (Negative)
[2020-03-24 06:48] LABS: Hematocrit (blood only) 30.7 % (37-47); Mean Corpuscular Hemoglobin 28.7 pg (25-34); Mean Corpuscular Hgb Conc 32.6 g/dL (32-36); Mean Platelet Volume 8.5 fL (7.4-10.4); Platelet Count 339 K/uL (130-400); Red Blood Count 3.49 M/uL (4.2-5.4); White Blood Count 6.48 K/uL (4.8-10.8)
[2020-03-24 07:22] LABS: BUN Creatinine Ratio 15.4 (10-20); Creatinine Clr Calc Pharmacy 110.1 ml/min; Est GFR (African American) 141.4; Potassium 3.3 mmol/L (3.5-5.1)
--- NOTE | 2020-03-24 07:26 | Magnetic Resonance Report ---
MR thoracic spine wo/w con HISTORY: Pain. Infection. upper thoracicpain, hx of sepsis, ?osteo/disciitis TECHNIQUE: Multiplanar multisequence MRI of the thoracic spine was performed both before and after th e intravenous administration of contrast. COMPARISON: None. FINDINGS: Alignment and curvature are intact. No fracture or subluxation. No significant central canal or neura l foraminal narrowing. IMPRESSION: Normal study. No abnormal postcontrast enhancement ACT 112: Negative or not required by law. The above report was generated using voice recognition software. It may contain grammatical, syntax or spelling errors. Electronically signed by: Abran Byers M.D. 03/24/2020 7:24 AM
[2020-03-24] MEDS: SODIUM CHLORIDE 0.9% 1000ML 1,000 ML IV SCH ×2 (07:27→15:52)
--- NOTE | 2020-03-24 07:28 | Magnetic Resonance Report ---
MR cervical spine wo/w con HISTORY: Pain. Infection. neck pain, hx of sepsis, ?osteo/disciitis TECHNIQUE: Multiplanar multisequence MRI of the cervical spine was performed both before and after th e use of intravenous contrast. COMPARISON STUDY: None. FINDINGS: Normal signal characteristics of the vertebral bodies as well as intervertebral disc. Candi l signal characteristics of the cervical cord. No abnormal postcontrast enhancement. C2-C3: No significant central canal or neural foraminal narrowing. C3-C4: No significant central canal or neural foraminal narrowing. C4-C5: No significant central canal or neural foraminal narrowing. C5-C6: No significant central canal or neural foraminal narrowing. C6-C7: No significant central canal or neural foraminal narrowing. C7-T1: No significant central canal or neural foraminal narrowing. IMPRESSION: Normal study ACT 112: Negative or not required by law. The above report was generated using voice recognition software. It may contain grammatical, syntax or spelling errors. Electronically signed by: Abran Beyrs M.D. 03/24/2020 7:27 AM
[2020-03-24] MEDS: CALCIUM 600MG + VIT D 400 IU TAB PO SCH (08:37)
[2020-03-24] MEDS: OMEGA-3 (PURIFIED FISH OIL) 1 GM CAP PO SCH ×2 (08:37→20:07)
--- NOTE | 2020-03-24 08:55 | Hospitalist Progress Note ---
Date of Service March 24, 2020 Assessment & Plan (1) Lightheadedness: (2) Near syncope: 34-year-old female with history of Group B strep bacteremia in September who presents from [facility] for GI follow up with dizziness and near syncope after rapid response was called. Experienced episode of lightheadedness and nausea in clinic today with associated tachycardia and hypotension that resolved with fluids Afebrile, no leukocytosis. Hemoglobin 10.5 (baseline 1011), CRP, lactic acid and procalcitonin all within normal limits CXR without acute abnormalities. EKG with normal sinus rhythm Brain MRI: No acute intracranial abnormality Blood cultures collected Near syncopal episode may be due to dehydration or situational Patient also has chronic normocytic anemia Will appreciate GI eval since patient was supposed to see them prior to episode Will continue IV hydration today (3) Neck pain: Musculoskeletal in nature. Worse in the morning after sleeping on stomach, improves during the day. Currently no neck pain to palpation, full active ROM, negative Brudzinski's sign -Unable to participate for cervical/thoracic MRI earlier due to lightheadedness/ near syncope DVT Ppx: Dane de la cruz Code status: FULL PCP: Gordo Dispo: Plan dc tomorrow Admission and Anticipated Discharge Date Admission Date: March 23, 2020 Subjective Patient seen and examined Reports dizziness had resolved. Patient reports nausea on and off with some abdominal pain, constipation since September Denied any fevers, chills Denied chest pain, cough, sob, garcia Denied any dysuria, freq, urgency Denied any change in menstrual pattern Physical Exam Constitutional: well developed and + well hydrated; no acute distress Eyes: PERRL, conjunctivae normal, anicteric sclerae ENMT: external ear and nose normal, oropharynx normal Respiratory: normal respiratory effort, lungs clear to auscultation Cardiovascular: RRR, no murmur, no edema Gastrointestinal (Abdomen): normal bowel sounds, soft, nontender, no hepatosplenomegaly Musculoskeletal: no cyanosis or clubbing, extremities motor strength 5/5 Neurologic: PERRL, EOMI, accommodation nl, no face palsy, no dysarthria Psychiatric: A+Ox3, euthymic affect Results & Data Results & Data ([facility]) Vital Signs (Past 12 Hours) Vital Signs Temp Pulse Pulse Resp BP Pulse Ox 03/24/20 07:29 36.8 C 84 16 107/66 98 03/24/20 04:11 36.7 C 74 18 99/61 L 98 03/24/20 01:19 67 03/23/20 22:45 36.8 C 78 18 111/70 96 03/23/20 22:43 37.0 C 83 20 104/58 L 98 Laboratory Results Laboratory Results - last 24 hr 03/23/20 03/23/20 03/23/20 16:34 16:58 17:04 WBC 6.72 RBC 3.63 L Hgb 10.5 L Hct 32.7 L MCV 90.1 MCH 28.9 MCHC 32.1 RDW Std Deviation 46.3 RDW Coeff of [place] 13.9 Plt Count 366 MPV 8.6 Immature Gran % (Auto) 0.0 Neut % (Auto) 70.1 Lymph % (Auto) 24.3 Bay % (Auto) 4.0 Eos % (Auto) 0.6 Baso % (Auto) 1.0 Neut # (Auto) 4.71 Lymph # (Auto) 1.63 Bay # (Auto) 0.27 Eos # (Auto) 0.04 Baso # (Auto) 0.07 Immature Gran # (Auto) 0.00 ESR PT INR APTT PTT Ratio Sodium Potassium Chloride Carbon Dioxide Anion Gap BUN Creatinine Est Cr Clr Drug Dosing Est GFR ( Amer) Est GFR (Non-Af Amer) BUN/Creatinine Ratio Glucose POC Glucose 105 H Lactate Calcium Magnesium Total Bilirubin AST ALT Alkaline Phosphatase Troponin I C-Reactive Protein Total Protein Albumin Globulin Albumin/Globulin Ratio Procalcitonin Urine Color Yellow Urine Appearance Clear Urine pH 6.5 Ur Specific [place] 1.011 Urine Protein Negative Urine Glucose (UA) Negative Urine Ketones Negative Urine Blood Trace H Urine Nitrite Negative Urine Bilirubin Negative Urine Urobilinogen Negative Ur Leukocyte Esterase Negative Urine WBC (Auto) 1-5 Urine RBC (Auto) 5-10 H U Hyaline Cast (Auto) 0 U Epithel Cells (Auto) 20-30 H Urine Bacteria (Auto) Negative Urine Test 03/23/20 03/23/20 03/23/20 17:04 17:04 17:04 WBC RBC Hgb Hct MCV MCH MCHC RDW Std Deviation RDW Coeff of [place] Plt Count MPV Immature Gran % (Auto) Neut % (Auto) Lymph % (Auto) Bay % (Auto) Eos % (Auto) Baso % (Auto) Neut # (Auto) Lymph # (Auto) Bay # (Auto) Eos # (Auto) Baso # (Auto) Immature Gran # (Auto) ESR 7 PT 10.7 INR 1.0 APTT 27.2 PTT Ratio 1.0 Sodium 140 Potassium 3.8 Chloride 112 H Carbon Dioxide 23 Anion Gap 5.0 BUN 15 Creatinine 0.67 Est Cr Clr Drug Dosing 95.3 Est GFR ( Amer) 134.8 Est GFR (Non-Af Amer) 116.3 BUN/Creatinine Ratio 21.7 H Glucose 98 POC Glucose Lactate Calcium 8.2 L Magnesium 2.0 Total Bilirubin 0.2 AST 12 L ALT 21 Alkaline Phosphatase 43 L Troponin I < 0.015 C-Reactive Protein < 0.29 Total Protein 6.9 Albumin 3.7 Globulin 3.2 Albumin/Globulin Ratio 1.2 Procalcitonin Urine Color Urine Appearance Urine pH Ur Specific [place] Urine Protein Urine Glucose (UA) Urine Ketones Urine Blood Urine Nitrite Urine Bilirubin Urine Urobilinogen Ur Leukocyte Esterase Urine WBC (Auto) Urine RBC (Auto) U Hyaline Cast (Auto) U Epithel Cells (Auto) Urine Bacteria (Auto) Urine Test 03/23/20 03/23/20 03/24/20 17:04 17:04 02:55 WBC RBC Hgb Hct MCV MCH MCHC RDW Std Deviation RDW Coeff of [place] Plt Count MPV Immature Gran % (Auto) Neut % (Auto) Lymph % (Auto) Bay % (Auto) Eos % (Auto) Baso % (Auto) Neut # (Auto) Lymph # (Auto) [place] # (Auto) Eos # (Auto) Baso # (Auto) Immature Gran # (Auto) ESR PT INR APTT PTT Ratio Sodium Potassium Chloride Carbon Dioxide Anion Gap BUN Creatinine Est Cr Clr Drug Dosing Est GFR ( Amer) Est GFR (Non-Af Amer) BUN/Creatinine Ratio Glucose POC Glucose Lactate 1.2 Calcium Magnesium Total Bilirubin AST ALT Alkaline Phosphatase Troponin I C-Reactive Protein Total Protein Albumin Globulin Albumin/Globulin Ratio Procalcitonin < 0.05 Urine Color Urine Appearance Urine pH Ur Specific [place] Urine Protein Urine Glucose (UA) Urine Ketones Urine Blood Urine Nitrite Urine Bilirubin Urine Urobilinogen Ur Leukocyte Esterase Urine WBC (Auto) Urine RBC (Auto) U Hyaline Cast (Auto) U Epithel Cells (Auto) Urine Bacteria (Auto) Urine Test Negative 03/24/20 03/24/20 06:18 06:18 WBC 6.48 RBC 3.49 L Hgb 10.0 L Hct 30.7 L MCV 88.0 MCH 28.7 MCHC 32.6 RDW Std Deviation 45.0 RDW Coeff of [place] 14.0 Plt Count 339 MPV 8.5 Immature Gran % (Auto) Neut % (Auto) Lymph % (Auto) Bay % (Auto) Eos % (Auto) Baso % (Auto) Neut # (Auto) Lymph # (Auto) [place] # (Auto) Eos # (Auto) Baso # (Auto) Immature Gran # (Auto) ESR PT INR APTT PTT Ratio Sodium 142 Potassium 3.3 L Chloride 112 H Carbon Dioxide 25 Anion Gap 4.0 BUN 9 D Creatinine 0.58 L Est Cr Clr Drug Dosing 110.1 Est GFR ( Amer) 141.4 Est GFR (Non-Af Amer) 122.0 BUN/Creatinine Ratio 15.4 Glucose 80 POC Glucose Lactate Calcium 8.0 L Magnesium Total Bilirubin AST ALT Alkaline Phosphatase Troponin I C-Reactive Protein Total Protein Albumin Globulin Albumin/Globulin Ratio Procalcitonin Urine Color Urine Appearance Urine pH Ur Specific [place] Urine Protein Urine Glucose (UA) Urine Ketones Urine Blood Urine Nitrite Urine Bilirubin Urine Urobilinogen Ur Leukocyte Esterase Urine WBC (Auto) Urine RBC (Auto) U Hyaline Cast (Auto) U Epithel Cells (Auto) Urine Bacteria (Auto) Urine Test
--- NOTE | 2020-03-24 12:21 | Gastrointestinal Consultation ---
Date of Consultation March 24, 2020 Assessment & Plan (1) Streptococcus bovis infection: 34 y/o female with PMHx strep bovine septicemia in Sep 2019, chronic normocytic anemia, admitted with near syncopal episode that occurred at our GI office. Etiology is not known, however symptoms have resolved; labs, VSS stable. BC pending. GI consulted to consider endoscopy given h/o infection concerning for possible underlying GI/colon CA, which pt is aware of. - Recommend EGD/colonoscopy; as she is not prepped for colonoscopy today (being Friday), we will arrange the procedures to be done simultaneously after she is discharged which pt prefers as she will then only have to be sedated once. - Can advance diet as tolerated - Await BC results - Can f/u with GI if needed as an outpt - GI will sign off Thank you for allowing us to participate in the care of this patient. Please call with any acute changes, questions or concerns. Please see addendum below with additional recommendation from my supervising physician. Supervising Physician Co-Signing Physician Notes Thin female wearing glass in nad, abd soft nt nd +bs feeling better with IV hydration Given no drop in hgb and no active symptoms of hematemesis/hematochezia or any urgent GI symptoms needing inpt egd/colon and no prep done overnite- she is agreeable to outpatient scopes. The office will contact her to schedule them. Encourage hydration. History of Present Illness Attending Physician: Rafia Beard MD History of Present Illness This is a 34 y/o female with chronic normocytic anemia, h/o strep bovine septicemia Sep 2019, chronic intermittent nausea, constipation, diarrhea, who presented to outpt GI office yesterday to schedule EGD/colonoscopy in f/u of her strep bovine infection (r/o malignancy), and she had a near syncopal episode (rapid response team activated). She was brought to the ER, found to be afebrile, no leukocytosis. Hemoglobin 10.5 (baseline 1011), CRP, lactic acid and procalcitonin WNL, CXR neg, EKG with NSR, Brain MRI: no acute findings. She was tx with IVF and BC were obtained. Overnight she's had no acute events and feels well; hungry. No further presyncope. Stable VS, remains afebrile. BC pending. Labs are stable, K 3.3. GI consulted for h/o septicemia, consider EGD/colonoscopy. She is due to have a dermoid cyst removed in a few weeks. She has regular BMs daily, occasional constipation. Denies hematochezia, melena, hematemesis, nausea, vomiting, abd pain, cramping, bloating, regurgitation, heartburn, dysphagia, weight loss, change in appetite,night sweats, fever, chest pain, cough, dysuria, hematuria. No fam Hx GI malignancy. Allergies Allergy/AdvReac Type Severity Reaction Status Date / Time lactose Allergy Mild Gastrointestinal Verified 03/23/20 20:15 Upset Home Medications Home Medications Medication Instructions Recorded Confirmed Type Vitamin B/Zinc 1 dose PO DAILY 03/23/20 03/23/20 History calcium carbonate-vitamin D3 1 cap PO DAILY 03/23/20 03/23/20 History [Calcium 600 + D(3)] magnesium 0 mg PO DAILY 03/23/20 03/23/20 History mometasone 2 spray INTRANASAL DAILY PRN 03/23/20 03/23/20 History omega 7-xor-miv-fish oil [Fish Oil] 1 cap PO BID 03/23/20 03/23/20 History Patient History Medical History Dermoid cyst of right ovary Sepsis group b bacteremia in Sep 2019 Surgical History H/O wisdom tooth extraction Family History Father Hypertension Social History Preferred Language: Maltese Communication Ability: Effective [place] Required: No Beliefs That Will Affect Care: None marital status: Current Living Situation: Spouse Feels Safe at Home: Yes Smoking Status: Never smoker Hx Alcohol Use: No Hx Substance Use: No Review of Systems Review of Systems: All systems reviewed & are unremarkable except as noted in HPI & below Physical Exam Constitutional: WD/WN, vitals as above no acute distress Eyes: + anicteric sclerae Respiratory: normal respiratory effort, lungs clear to auscultation Cardiovascular: RRR, no murmur, no edema Gastrointestinal (Abdomen): normal bowel sounds, soft, nontender, no hepatosplenomegaly Inspection/Auscultation: abdomen not distended Skin: no rashes, warm and dry Psychiatric: A+Ox3, euthymic affect Results & Data ([facility]) Vital Signs (Past 12 Hours) Vital Signs Temp Pulse Pulse Resp BP Pulse Ox 03/24/20 07:29 36.8 C 84 16 107/66 98 03/24/20 04:11 36.7 C 74 18 99/61 L 98 03/24/20 01:19 67 Laboratory Results 03/24/20 03/24/20 03/24/20 Range/Units 06:18 06:18 02:55 WBC 6.48 (4.8-10.8) K/uL RBC 3.49 L (4.2-5.4) M/uL Hgb 10.0 L (12.0-16.0) g/dL Hct 30.7 L (37-47) % MCV 88.0 (80-100) fL MCH 28.7 (25-34) pg MCHC 32.6 (32-36) g/dL RDW Std Deviation 45.0 (36.4-46.3) fL RDW Coeff of Dutch 14.0 (11.5-14.5) % Plt Count 339 (130-400) K/uL MPV 8.5 (7.4-10.4) fL Immature Gran % (Auto) % Neut % (Auto) % Lymph % (Auto) % [place] % (Auto) % Eos % (Auto) % Baso % (Auto) % Neut # (Auto) (1.4-6.5) K/uL Lymph # (Auto) (1.2-3.4) K/uL [place] # (Auto) (0.11-0.59) K/uL Eos # (Auto) (0-0.5) K/uL Baso # (Auto) (0-0.2) K/uL Immature Gran # (Auto) (0.00-0.02) K/uL ESR (0-21) mm/hr PT (9.0-12.0) Seconds INR (0.9-1.1) APTT (21.0-31.0) Seconds PTT Ratio Sodium 142 (136-145) mmol/L Potassium 3.3 L (3.5-5.1) mmol/L Chloride 112 H (98-107) mmol/L Carbon Dioxide 25 (21-32) mmol/L Anion Gap 4.0 (3-11) BUN 9 D (7-18) mg/dl Creatinine 0.58 L (0.6-1.2) mg/dl Est Cr Clr Drug Dosing 110.1 ml/min Est GFR ( Amer) 141.4 Est GFR (Non-Af Amer) 122.0 BUN/Creatinine Ratio 15.4 (10-20) Glucose 80 (70-99) mg/dl POC Glucose (70-99) mg/dl Lactate (0.4-2.0) mmol/L Calcium 8.0 L (8.5-10.1) mg/dl Magnesium (1.8-2.4) mg/dl Total Bilirubin (0.2-1) mg/dl AST (15-37) U/L ALT (12-78) U/L Alkaline Phosphatase (45-117) U/L Troponin I (0-0.045) ng/ml C-Reactive Protein (0-0.29) mg/dl Total Protein (6.4-8.2) gm/dl Albumin (3.4-5.0) gm/dl Globulin (2.5-4.0) gm/dl Albumin/Globulin Ratio (0.9-2) Procalcitonin (0-0.5) ng/ml Urine Color Urine Appearance (Clear) Urine pH (4.5-7.5) Ur Specific [place] (1.000-1.030) Urine Protein (Negative) Urine Glucose (UA) (Negative) Urine Ketones (Negative) Urine Blood (Negative) Urine Nitrite (Negative) Urine Bilirubin (Negative) Urine Urobilinogen (Negative) Ur Leukocyte Esterase (Negative) Urine WBC (Auto) (0-5) /hpf Urine RBC (Auto) (0-4) /hpf U Hyaline Cast (Auto) (0-5) /lpf U Epithel Cells (Auto) (0-5) /lpf Urine Bacteria (Auto) (Negative) Urine Test Negative (Negative) 03/23/20 03/23/20 03/23/20 Range/Units 17:04 17:04 17:04 WBC (4.8-10.8) K/uL RBC (4.2-5.4) M/uL Hgb (12.0-16.0) g/dL Hct (37-47) % MCV (80-100) fL MCH (25-34) pg MCHC (32-36) g/dL RDW Std Deviation (36.4-46.3) fL RDW Coeff of Dutch (11.5-14.5) % Plt Count (130-400) K/uL MPV (7.4-10.4) fL Immature Gran % (Auto) % Neut % (Auto) % Lymph % (Auto) % [place] % (Auto) % Eos % (Auto) % Baso % (Auto) % Neut # (Auto) (1.4-6.5) K/uL Lymph # (Auto) (1.2-3.4) K/uL [place] # (Auto) (0.11-0.59) K/uL Eos # (Auto) (0-0.5) K/uL Baso # (Auto) (0-0.2) K/uL Immature Gran # (Auto) (0.00-0.02) K/uL ESR (0-21) mm/hr PT (9.0-12.0) Seconds INR (0.9-1.1) APTT (21.0-31.0) Seconds PTT Ratio Sodium 140 (136-145) mmol/L Potassium 3.8 (3.5-5.1) mmol/L Chloride 112 H (98-107) mmol/L Carbon Dioxide 23 (21-32) mmol/L Anion Gap 5.0 (3-11) BUN 15 (7-18) mg/dl Creatinine 0.67 (0.6-1.2) mg/dl Est Cr Clr Drug Dosing 95.3 ml/min Est GFR ( Amer) 134.8 Est GFR (Non-Af Amer) 116.3 BUN/Creatinine Ratio 21.7 H (10-20) Glucose 98 (70-99) mg/dl POC Glucose (70-99) mg/dl Lactate 1.2 (0.4-2.0) mmol/L Calcium 8.2 L (8.5-10.1) mg/dl Magnesium 2.0 (1.8-2.4) mg/dl Total Bilirubin 0.2 (0.2-1) mg/dl AST 12 L (15-37) U/L ALT 21 (12-78) U/L Alkaline Phosphatase 43 L (45-117) U/L Troponin I < 0.015 (0-0.045) ng/ml C-Reactive Protein < 0.29 (0-0.29) mg/dl Total Protein 6.9 (6.4-8.2) gm/dl Albumin 3.7 (3.4-5.0) gm/dl Globulin 3.2 (2.5-4.0) gm/dl Albumin/Globulin Ratio 1.2 (0.9-2) Procalcitonin < 0.05 (0-0.5) ng/ml Urine Color Urine Appearance (Clear) Urine pH (4.5-7.5) Ur Specific [place] (1.000-1.030) Urine Protein (Negative) Urine Glucose (UA) (Negative) Urine Ketones (Negative) Urine Blood (Negative) Urine Nitrite (Negative) Urine Bilirubin (Negative) Urine Urobilinogen (Negative) Ur Leukocyte Esterase (Negative) Urine WBC (Auto) (0-5) /hpf Urine RBC (Auto) (0-4) /hpf U Hyaline Cast (Auto) (0-5) /lpf U Epithel Cells (Auto) (0-5) /lpf Urine Bacteria (Auto) (Negative) Urine Test (Negative) 03/23/20 03/23/20 03/23/20 Range/Units 17:04 17:04 17:04 WBC 6.72 (4.8-10.8) K/uL RBC 3.63 L (4.2-5.4) M/uL Hgb 10.5 L (12.0-16.0) g/dL Hct 32.7 L (37-47) % MCV 90.1 (80-100) fL MCH 28.9 (25-34) pg MCHC 32.1 (32-36) g/dL RDW Std Deviation 46.3 (36.4-46.3) fL RDW Coeff of [place] 13.9 (11.5-14.5) % Plt Count 366 (130-400) K/uL MPV 8.6 (7.4-10.4) fL Immature Gran % (Auto) 0.0 % Neut % (Auto) 70.1 % Lymph % (Auto) 24.3 % [place] % (Auto) 4.0 % Eos % (Auto) 0.6 % Baso % (Auto) 1.0 % Neut # (Auto) 4.71 (1.4-6.5) K/uL Lymph # (Auto) 1.63 (1.2-3.4) K/uL [place] # (Auto) 0.27 (0.11-0.59) K/uL Eos # (Auto) 0.04 (0-0.5) K/uL Baso # (Auto) 0.07 (0-0.2) K/uL Immature Gran # (Auto) 0.00 (0.00-0.02) K/uL ESR 7 (0-21) mm/hr PT 10.7 (9.0-12.0) Seconds INR 1.0 (0.9-1.1) APTT 27.2 (21.0-31.0) Seconds PTT Ratio 1.0 Sodium (136-145) mmol/L Potassium (3.5-5.1) mmol/L Chloride (98-107) mmol/L Carbon Dioxide (21-32) mmol/L Anion Gap (3-11) BUN (7-18) mg/dl Creatinine (0.6-1.2) mg/dl Est Cr Clr Drug Dosing ml/min Est GFR ( Amer) Est GFR (Non-Af Amer) BUN/Creatinine Ratio (10-20) Glucose (70-99) mg/dl POC Glucose (70-99) mg/dl Lactate (0.4-2.0) mmol/L Calcium (8.5-10.1) mg/dl Magnesium (1.8-2.4) mg/dl Total Bilirubin (0.2-1) mg/dl AST (15-37) U/L ALT (12-78) U/L Alkaline Phosphatase (45-117) U/L Troponin I (0-0.045) ng/ml C-Reactive Protein (0-0.29) mg/dl Total Protein (6.4-8.2) gm/dl Albumin (3.4-5.0) gm/dl Globulin (2.5-4.0) gm/dl Albumin/Globulin Ratio (0.9-2) Procalcitonin (0-0.5) ng/ml Urine Color Urine Appearance (Clear) Urine pH (4.5-7.5) Ur Specific [place] (1.000-1.030) Urine Protein (Negative) Urine Glucose (UA) (Negative) Urine Ketones (Negative) Urine Blood (Negative) Urine Nitrite (Negative) Urine Bilirubin (Negative) Urine Urobilinogen (Negative) Ur Leukocyte Esterase (Negative) Urine WBC (Auto) (0-5) /hpf Urine RBC (Auto) (0-4) /hpf U Hyaline Cast (Auto) (0-5) /lpf U Epithel Cells (Auto) (0-5) /lpf Urine Bacteria (Auto) (Negative) Urine Test (Negative) 03/23/20 03/23/20 Range/Units 16:58 16:34 WBC (4.8-10.8) K/uL RBC (4.2-5.4) M/uL Hgb (12.0-16.0) g/dL Hct (37-47) % MCV (80-100) fL MCH (25-34) pg MCHC (32-36) g/dL RDW Std Deviation (36.4-46.3) fL RDW Coeff of [place] (11.5-14.5) % Plt Count (130-400) K/uL MPV (7.4-10.4) fL Immature Gran % (Auto) % Neut % (Auto) % Lymph % (Auto) % [place] % (Auto) % Eos % (Auto) % Baso % (Auto) % Neut # (Auto) (1.4-6.5) K/uL Lymph # (Auto) (1.2-3.4) K/uL [place] # (Auto) (0.11-0.59) K/uL Eos # (Auto) (0-0.5) K/uL Baso # (Auto) (0-0.2) K/uL Immature Gran # (Auto) (0.00-0.02) K/uL ESR (0-21) mm/hr PT (9.0-12.0) Seconds INR (0.9-1.1) APTT (21.0-31.0) Seconds PTT Ratio Sodium (136-145) mmol/L Potassium (3.5-5.1) mmol/L Chloride (98-107) mmol/L Carbon Dioxide (21-32) mmol/L Anion Gap (3-11) BUN (7-18) mg/dl Creatinine (0.6-1.2) mg/dl Est Cr Clr Drug Dosing ml/min Est GFR ( Amer) Est GFR (Non-Af Amer) BUN/Creatinine Ratio (10-20) Glucose (70-99) mg/dl POC Glucose 105 H (70-99) mg/dl Lactate (0.4-2.0) mmol/L Calcium (8.5-10.1) mg/dl Magnesium (1.8-2.4) mg/dl Total Bilirubin (0.2-1) mg/dl AST (15-37) U/L ALT (12-78) U/L Alkaline Phosphatase (45-117) U/L Troponin I (0-0.045) ng/ml C-Reactive Protein (0-0.29) mg/dl Total Protein (6.4-8.2) gm/dl Albumin (3.4-5.0) gm/dl Globulin (2.5-4.0) gm/dl Albumin/Globulin Ratio (0.9-2) Procalcitonin (0-0.5) ng/ml Urine Color Yellow Urine Appearance Clear (Clear) Urine pH 6.5 (4.5-7.5) Ur Specific [place] 1.011 (1.000-1.030) Urine Protein Negative (Negative) Urine Glucose (UA) Negative (Negative) Urine Ketones Negative (Negative) Urine Blood Trace H (Negative) Urine Nitrite Negative (Negative) Urine Bilirubin Negative (Negative) Urine Urobilinogen Negative (Negative) Ur Leukocyte Esterase Negative (Negative) Urine WBC (Auto) 1-5 (0-5) /hpf Urine RBC (Auto) 5-10 H (0-4) /hpf U Hyaline Cast (Auto) 0 (0-5) /lpf U Epithel Cells (Auto) 20-30 H (0-5) /lpf Urine Bacteria (Auto) Negative (Negative) Urine Test (Negative)
[2020-03-24] MEDS ORDERED: POTASSIUM CHLORIDE PWD 20 MEQ PACK PO ONE (16:00)
[2020-03-24] MEDS ORDERED: FIDAXOMICIN 200 MG TAB PO SCH (21:00)
--- NOTE | 2020-03-24 21:46 | Electrocardiogram Report ---
Test Reason : Blood Pressure : / mmHG Vent. Rate : 086 BPM Atrial Rate : 086 BPM P-R Int : 134 ms QRS Dur : 084 ms QT Int : 382 ms P-R-T Axes : 041 085 059 degrees QTc Int : 457 ms Poor data quality, interpretation may be adversely affected Normal sinus rhythm Normal ECG When compared with ECG of 02-NOV-2019 14:20, No significant change was found Confirmed by Gareth Cheema ([id number]) on 03/24/2020 9:46:20 PM Referred By: REFERRED SELF Confirmed By:Gareth Cheema
[2020-03-25] MEDS: SODIUM CHLORIDE 0.9% 1000ML 1,000 ML IV SCH ×2 (00:07→08:14)
[2020-03-25] MEDS: OMEGA-3 (PURIFIED FISH OIL) 1 GM CAP PO SCH (08:13)
[2020-03-25] MEDS: CALCIUM 600MG + VIT D 400 IU TAB PO SCH (08:14)
--- NOTE | 2020-03-25 08:53 | Discharge Summary ---
Date of Service March 25, 2020 Admission HPI Per Admitting Provider This is a 34-year-old female with history of Group B strep bacteremia in September who presents from [facility] clinic with dizziness and near syncope after rapid response was called. Patient has been feeling fatigued lately with some lightheadedness. Drove to [facility] today for GI appointment and while sitting in truck prior to entering the building, had episode of acute lightheadedness, nausea and near syncope. Walked into the building and once roomed, patient was slow to respond. Rapid response was called and patient was found to be tachycardic and hypotensive. Received IV fluids with resolution of symptoms but was encouraged to come to ED for further evaluation. Was admitted in late September of this year for strep bovis infection. KATIE and LP at the time were negative. Was referred to GI as OP for further workup to rule out colon cancer given the suspicious bacteria. Patient states she feels very similar today as to how she felt when she was initially diagnosed with bacteremia back in September. Currently, patient is feeling fatigued but otherwise normal. Endorses some chills and nausea as well. Denies any fever, headache, visual changes, lightheadedness, chest pain, shortness of breath, vomiting, abdominal pain or dysuria. Endorses intermittent diarrhea and constipation but believes she has IBS. Admission Exam Per Admitting Provider General Appearance: WD/WN, vitals as above, NAD, sitting up in bed, pleasant, conversing easily Head: normocephalic, atraumatic Eyes: normal inspection, PERRL, conjunctivae normal, anicteric sclerae ENT: external ear and nose normal, oropharynx normal Neck: trachea midline, no thyromegaly, normal visual inspection, no pain to palpation, full active ROM, negative Brudzinski's sign Respiratory: normal respiratory effort, lungs clear to auscultation, no wheeze, rales, rhonchi. Normal insp/exp effort, no accessory muscle use Cardiovascular: regular rate, rhythm, no murmur, normal peripheral pulses Chest: normal inspection of chest Abdomen/GI: normal bowel sounds, soft, nontender, no hepatosplenomegaly Extremities/Musculoskeletal: no cyanosis or clubbing, extremities motor strength 5/5 Neurologic: PERRL, EOMI, accommodation nl, no face palsy, no dysarthria, CN's II-XI intact bilaterally and moves all extremities Psychiatric: A+Ox3, + anxious Skin: no rashes, normal color, warm/dry Principal Diagnosis Near syncope Chronic normocytic anemia Discharge Exam Constitutional well developed and + well hydrated; no acute distress Eyes PERRL, conjunctivae normal, anicteric sclerae ENMT external ear and nose normal, oropharynx normal Respiratory normal respiratory effort, lungs clear to auscultation Cardiovascular RRR, no murmur, no edema Gastrointestinal (Abdomen) normal bowel sounds, soft, nontender, no hepatosplenomegaly Musculoskeletal no cyanosis or clubbing, extremities motor strength 5/5 Neurologic PERRL, EOMI, accommodation nl, no face palsy, no dysarthria Psychiatric A+Ox3, euthymic affect Discharge Data Allergies Allergy/AdvReac Type Severity Reaction Status Date / Time lactose Allergy Mild Gastrointestinal Verified 03/23/20 20:15 Upset Consultations 03/24/20 08:00 Consult Gastroenterology Routine Ordered Studies 03/23/20 17:02 MR cervical spine wo/w con Urgent MR thoracic spine wo/w con Urgent 03/23/20 17:35 MR brain wo con Stat Hospital Course (1) Lightheadedness: (2) Near syncope: 34-year-old female with history of Group B strep bacteremia in September who presents from [facility] clinic for GI follow up with dizziness and near syncope after rapid response was called. Experienced episode of lightheadedness and nausea in clinic today with associated tachycardia and hypotension that resolved with fluids Afebrile, no leukocytosis. Hemoglobin 10.5 (baseline 1011), CRP, lactic acid and procalcitonin all within normal limits CXR without acute abnormalities. EKG with normal sinus rhythm Brain MRI: No acute intracranial abnormality Blood cultures collected Near syncopal episode may be due to dehydration or situational Rehydrated with IVF Symptoms resolved Patient also has chronic normocytic anemia Evaluated by GI and will follow up outpatient for EGD/C-scope (3) Neck pain: Musculoskeletal in nature. Worse in the morning after sleeping on stomach, improves during the day. Currently no neck pain to palpation, full active ROM, negative Brudzinski's sign Cervical/thoracic MRI - normal study Total Time Total Time Spent Total Time Spent (In Minutes): 25 Total Time Includes: Examination of the Patient, Discharge Planning and Medication Reconciliation Discharge Plan Discharge Items Patient Disposition: Home - Self-Care Reason For Visit: DIZZINESS NEAR SYNCOPE Discharge Diagnosis: Near syncope Activity: Resume your previous activity Non-emergency contact: Primary Care Provider and Stacker Driver Call non-emergency contact if: you have any medication questions Follow-up/Referrals: Ruchi Caro DO [Primary Care Provider] - Diet: Regular Addtl Attending Provider Instructions: Ms Camp. You presented to the hospital for dizziness that occurred while going to see the doctor. You were evaluated and managed with IV fluids and medications. Please follow up with your Primary Doctor and Stacker Driver. It was a pleasure taking care of you Pending Studies at Discharge: No Stand-Alone Forms: My [facility] iCharts, Smoking Cessation Medications and DC Order Prescriptions: Continued mometasone 50 mcg/actuation spray,non-aerosol 2 spray INTRANASAL DAILY PRN (Reason: Nasal Congestion) RF: 0 magnesium 250 mg Tablet 0 mg PO DAILY RF: 0 Calcium 600 + D(3) 600 mg calcium- 200 unit Capsule 1 cap PO DAILY RF: 0 omega 6-mfx-zov-fish oil [Fish Oil] 1,000 mg (120 mg-180 mg) Capsule 1 cap PO BID RF: 0 Vitamin B/Zinc 1 dose PO DAILY RF: 0 Discharge Orders: Discharge Order (Routine); Ordered 03/25/20 Ordered By: Rafia Beard Admission Data Admit Date/Time: 03/23/20 20:41 Attending Provider: Rafia Beard I. Admit Provider: Yunior Singh Primary Care Provider: Ruchi Caro Other Providers: Marilee Pratt ; Aminata Meza ; Gloria Hobson ; Jessie Mattson ; Sukhdev Kirk ; Rosa Maria Hearn ; Steve Castillo ; Trudy Sweeney ; Lyndon Edgar ; James Curry ; Sirisha Basilio ; Hiwot Carnes ; Cleo Caro ; Adelina Abel ; Gera Pryor ; Yunior Singh Other Interventions: Discharge Summary Assessment (RN) Last Done: 03/25/20 09:10 DC Date/Time DO NOT enter until pt leaves facility: 03/25/20 11:03
[2020-03-25 08:57] LABS: BUN Creatinine Ratio 17.6 (10-20); Calcium 8.3 mg/dl (8.5-10.1); Creatinine Clr Calc Pharmacy 99.8 ml/min; Est GFR (African American) 136.8; Est GFR (Non-African American) 118.1
== END 2020-03-25 11:03 | disposition home or self-care (01) ==
LOC: 2W 16:18 → ED 16:18 → SUATTDRO 20:41 → 2W 22:54

== ENCOUNTER 2021-04-05 01:05 | Inpatient (IN) ==
[2021-04-05] MEDS ORDERED: LACTATED RINGER'S 1,000 ML IV PRN (01:42)
[2021-04-05] MEDS ORDERED: PENICILLIN G POTASSIUM 3 MU in DEXTROSE 5% 100 ML IV PRN (01:42)
[2021-04-05] MEDS ORDERED: OXYTOCIN 30 UNITS/500 ML BAG IV PRN ×2 (01:42→05:25)
[2021-04-05] MEDS ORDERED: PENICILLIN G POTASSIUM 6 MU in DEXTROSE 5% 250 ML IV STA (01:52)
[2021-04-05 01:59] LABS: Hematocrit (blood only) 32.9 % (37-47); Hemoglobin 10.9 g/dL (12.0-16.0); Mean Corpuscular Hemoglobin 29.5 pg (25-34); Mean Corpuscular Volume 88.9 fL (80-100); Mean Platelet Volume 9.9 fL (7.4-10.4); Platelet Count 272 K/uL (130-400); RDW Coefficient of Variation 13.9 % (11.5-14.5); RDW Standard Deviation 45.4 fL (36.4-46.3); White Blood Count 11.04 K/uL (4.8-10.8)
[2021-04-05 02:06] LABS: Mean Corpuscular Hgb Conc 33.1 g/dL (32-36)
--- NOTE | 2021-04-05 05:23 | Delivery Summary ---
Vaginal Delivery Summary Date of Service April 05, 2021 Vaginal Delivery Summary Delivery Note live male over intact perineum with nuchal cord x1 reduced at delivery of head. Delayed cord clamping and Apgars 8/9 weight pending. Cord blood obtained followed by spontaneous delivery of intact placenta. No tears. EBL 100 ml. Final sponge and instrument count are correct. Mom and baby stable.
[2021-04-05] MEDS ORDERED: bisacodyL 10 MG SUPP PR PRN (05:25)
[2021-04-05] MEDS ORDERED: SUPERCREAM 0.870% 15 GM JAR EXT PRN (05:25)
[2021-04-05] MEDS ORDERED: HYDROCORTISONE ACETATE 25 MG SUPP PR PRN (05:25)
[2021-04-05] MEDS ORDERED: BENZOCAINE 20% AER SPR 82.5 GM CAN EXT PRN (05:25)
[2021-04-05] MEDS ORDERED: DIPHTHERIA/TETANUS/PERTUSSIS 0.5 ML SYR/VIAL IM ONE (05:25)
[2021-04-05] MEDS ORDERED: OXYTOCIN 10 UNITS/ML VIAL IM ONE (05:25)
[2021-04-05] MEDS: IBUPROFEN 600 MG TAB PO PRN ×4 (05:44→22:12)
[2021-04-05] MEDS: DOCUSATE SODIUM 100 MG CAP PO SCH ×2 (08:32→22:12)
[2021-04-05] MEDS: FERROUS SULFATE 325 MG TAB PO SCH (08:32)
[2021-04-05] MEDS: PRENATAL VITAMIN 1 TAB PO SCH (08:32)
[2021-04-05] MEDS: ACETAMINOPHEN 325 MG TAB PO PRN ×3 (08:32→19:37)
[2021-04-05] MEDS ORDERED: NON-FORMULARY MEDICATION (Prenat.Vits,Cal,Min-Iron-Folic Tablet) PO SCH (09:00)
[2021-04-06] MEDS: ACETAMINOPHEN 325 MG TAB PO PRN (02:37)
[2021-04-06] MEDS: IBUPROFEN 600 MG TAB PO PRN ×4 (04:34→21:14)
[2021-04-06 08:17] LABS: Hematocrit (blood only) 31.3 % (37-47); Hemoglobin 10.2 g/dL (12.0-16.0); Mean Corpuscular Hemoglobin 29.3 pg (25-34); Mean Corpuscular Hgb Conc 32.6 g/dL (32-36); Mean Corpuscular Volume 89.9 fL (80-100); Mean Platelet Volume 9.8 fL (7.4-10.4); Platelet Count 279 K/uL (130-400); RDW Coefficient of Variation 14.2 % (11.5-14.5); RDW Standard Deviation 46.8 fL (36.4-46.3); Red Blood Count 3.48 M/uL (4.2-5.4); White Blood Count 10.81 K/uL (4.8-10.8)
[2021-04-06] MEDS: DOCUSATE SODIUM 100 MG CAP PO SCH ×2 (08:35→21:14)
[2021-04-06] MEDS: PRENATAL VITAMIN 1 TAB PO SCH (08:36)
[2021-04-06] MEDS: FERROUS SULFATE 325 MG TAB PO SCH (08:36)
--- NOTE | 2021-04-06 10:46 | Obstetrical Progress Note ---
Date of Service April 06, 2021 Subjective Ambulation: ambulating normally Voiding: no voiding problems Diet Tolerance:: regular diet Lochia:: Small Feeding Type:: breast feeding Current Pain Level(1-10): 0 doing well plans for d/c in AM inquiring about Covid vaccine Physical Exam Skin abdomen is soft and non-tender neh Andres's for d/c in AM Results & Data ([facility]) Vital Signs (Past 12 Hours) Vital Signs Temp Pulse Resp BP Pulse Ox 04/06/21 08:05 36.7 C 65 18 101/63 04/06/21 04:30 36.8 C 59 L 18 108/65 97 04/06/21 00:30 36.7 C 71 18 111/72 97 Laboratory Results Laboratory Results - last 72 hr 04/05/21 04/05/21 04/05/21 01:45 01:45 01:49 WBC 11.04 H RBC 3.70 L Hgb 10.9 L Hct 32.9 L MCV 88.9 MCH 29.5 MCHC 33.1 RDW Std Deviation 45.4 RDW Coeff of Dutch 13.9 Plt Count 272 MPV 9.9 COVID-19 Eval [facility] SARS-CoV-2, RNA, NAAT NEGATIVE 04/06/21 08:00 WBC 10.81 H RBC 3.48 L Hgb 10.2 L Hct 31.3 L MCV 89.9 MCH 29.3 MCHC 32.6 RDW Std Deviation 46.8 H RDW Coeff of Dutch 14.2 Plt Count 279 MPV 9.8 COVID-19 Eval Order SARS-CoV-2, RNA, NAAT
[2021-04-06] MEDS ORDERED: bisacodyL 5 MG TABEC PO SCH (20:00)
[2021-04-07 06:54] LABS: Hematocrit (blood only) 31.8 % (37-47); Hemoglobin 10.3 g/dL (12.0-16.0)
--- NOTE | 2021-04-07 08:58 | Obstetrical Progress Note ---
Date of Service April 07, 2021 Assessment & Plan Admission and Anticipated Discharge Date Admission Date: April 05, 2021 Subjective Patient is seen and examined. She feels well, no complaints. Ambulating without dizziness Voiding without difficulty Tolerating regular diet with out N&V Bleeding is minimal No fever/ chills/ CP/ SOB/ N&V/ Leg pain Breast feeding without problems Vital Signs Temp Pulse Resp BP 04/07/21 00:20 36.5 C 67 18 117/71 04/06/21 21:10 36.9 C 79 18 115/73 Lab Results 04/05/21 04/05/21 04/05/21 Range/Units 01:45 01:45 01:49 WBC 11.04 H (4.8-10.8) K/uL RBC 3.70 L (4.2-5.4) M/uL Hgb 10.9 L (12.0-16.0) g/dL Hct 32.9 L (37-47) % MCV 88.9 (80-100) fL MCH 29.5 (25-34) pg MCHC 33.1 (32-36) g/dL RDW Std Deviation 45.4 (36.4-46.3) fL RDW Coeff of Udtch 13.9 (11.5-14.5) % Plt Count 272 (130-400) K/uL MPV 9.9 (7.4-10.4) fL COVID-19 Eval Order Covid19 [facility] SARS-CoV-2, RNA, NAAT NEGATIVE (NEGATIVE) 04/06/21 04/07/21 Range/Units 08:00 06:16 WBC 10.81 H (4.8-10.8) K/uL RBC 3.48 L (4.2-5.4) M/uL Hgb 10.2 L 10.3 L (12.0-16.0) g/dL Hct 31.3 L 31.8 L (37-47) % MCV 89.9 (80-100) fL MCH 29.3 (25-34) pg MCHC 32.6 (32-36) g/dL RDW Std Deviation 46.8 H (36.4-46.3) fL RDW Coeff of Dutch 14.2 (11.5-14.5) % Plt Count 279 (130-400) K/uL MPV 9.8 (7.4-10.4) fL COVID-19 Eval Order SARS-CoV-2, RNA, NAAT (NEGATIVE) PE: General: Alert, orientedx3, NAD Abd: soft, NT, fundus firm, below Umbilicus Perineum intact, Lochia rubra minimal Ext; NT, no edema AP: 35 yo s/p , ppd# 2 VSS Afebrile doing well Continue routine care All questions were answered D/C home , f/u in office Results & Data ([facility]) Vital Signs (Past 12 Hours) Vital Signs Temp Pulse Resp BP 04/07/21 00:20 36.5 C 67 18 117/71 04/06/21 21:10 36.9 C 79 18 115/73
[2021-04-07] MEDS: DOCUSATE SODIUM 100 MG CAP PO SCH (09:08)
[2021-04-07] MEDS: FERROUS SULFATE 325 MG TAB PO SCH (09:08)
[2021-04-07] MEDS: PRENATAL VITAMIN 1 TAB PO SCH (09:08)
== END 2021-04-07 12:10 | disposition home or self-care (01) | DRG 807 ==
LOC: OPB 01:05 → 4S1 01:08 → 4S2 09:35